=== PATIENT | female | born 1930 | race Caucasian/White ===

== ENCOUNTER 2016-12-26 09:53 | Emergency (ER) | payer OTHER ==
[2016-12-26 10:02] VITALS: BMI 18.3
--- NOTE | 2016-12-26 10:36 | PDOC ---
History of Present Illness <Teodora Bryan - Last Filed: 12/26/16 13:14> <Byron Carias - Last Filed: 12/27/16 09:34> - General Chief Complaint: Chest Pain Stated Complaint: CHEST PAIN (PCP SENT) Time Seen by Provider: 12/26/16 10:29 - History of Present Illness Initial Comments: 12/26/16 12:37 The patient is a 86 year old female, with a significant past medical history of hypertension, pacemaker, asthma, diverticulitis, and frequent UTI, who presents to the emergency department with intermittent, sharp pain to the left lateral breast, inferior to her left axilla since 5pm last night. She denies pain at this time, however, reports the pain lasts for about a minute and a half and resolve. She reports that as the night progressed, the intervals between each episode of pain became shorter and shorter. She reports her pain this morning lasted for a minute and resolved for only a minute before reoccurring which is much sooner than it had been happening last night. She denies radiation of pain. She reports her refurbish technician discontinued her metoprolol and started on carvedilol about 4 days ago, She reports seeing her refurbish technician 2 weeks ago. She denies palpitations or persistent dyspnea, however, admits to one episode about a week ago after walking up the stairs. She also reports feeling fuzzy and lightheaded. She denies hematochezia. Pt dnies any worsening on exertion. She denies shortness of breath, diaprhoesis, headache and dizziness. She denies fever, chills, nausea, vomit, diarrhea and constipation. She denies dysuria, frequency, urgency and hematuria. Allergies: NKDA Past surgical history: hysterectomy, appendectomy, PCP - Dr. Lopez Psychological Assistant - Dr. Roman Lux (Teodora Bryan) Past History <Teodora Bryan - Last Filed: 12/26/16 13:14> - Past Medical History Anemia: No Asthma: Yes Cancer: No Cardiac Disorders: No CVA: No COPD: No CHF: No Dementia: No Diabetes: No GI Disorders: Yes (GERD,diverticulitis) Disorders: Yes (UTI) HTN: Yes Hypercholesterolemia: Yes Liver Disease: No Seizures: No Thyroid Disease: No - Surgical History Abdominal Surgery: Yes Appendectomy: Yes Cardiac Surgery: Yes (PACEMAKER) Cholecystectomy: No Lung Surgery: No Neurologic Surgery: No Orthopedic Surgery: No - Psycho/Social/Smoking Cessation Hx Anxiety: No Suicidal Ideation: No Smoking Status: No Smoking History: Never smoked Have you smoked in the past 12 months: No Number of Cigarettes Smoked Daily: 0 Hx Alcohol Use: Yes (1 BEER DAILY) Drug/Substance Use Hx: No Substance Use Type: None Hx Substance Use Treatment: No <Byron Carias - Last Filed: 12/27/16 09:34> - Past Medical History Allergies/Adverse Reactions: Allergies Allergy/AdvReac Type Severity Reaction Status Date / Time house dust Allergy Verified 12/26/16 10:02 HAY FEVER Allergy Uncoded 12/26/16 10:02 NKDA Allergy Uncoded 12/26/16 10:02 Home Medications: Ambulatory Orders Simvastatin [Zocor] 30 mg PO DAILY 01/11/12 Amlodipine Besylate [Norvasc -] 10 mg PO DAILY 06/13/16 Aspirin [Ecotrin] 81 mg PO DAILY 06/13/16 Carvedilol [Coreg -] 12.5 mg PO BID 12/26/16 Quinapril HCl [Accupril] 40 mg PO DAILY 12/26/16 Cardiac Specific PMH - Complaint Specific PMHX Pacemaker: No <Byron Carias - Last Filed: 12/27/16 09:34> Review of Systems - Review of Systems Able to Perform ROS?: Yes <Teodora Bryan - Last Filed: 12/26/16 13:14> <Byron Carias - Last Filed: 12/27/16 09:34> - Review of Systems Comments:: 12/26/16 12:37 CONSTITUTIONAL: No reported: Fever, Chills, Diaphoresis, Generalized Weakness, Malaise, Loss of Appetite HEENT: No reported: Rhinorrhea, Nasal Congestion, Throat Pain, Throat Swelling, Difficulty Swallowing, Mouth Swelling, Ear Pain, Eye Pain, Visual Changes CARDIOVASCULAR: (+) Chest Pain, No reported: Syncope, Palpitations, Irregular Heart Rate, Lightheadedness, Peripheral Edema RESPIRATORY: No reported: Cough, Shortness of Breath, SOB with Exertion, Orthopnea, Wheezing , Stridor, Hemoptysis GASTROINTESTINAL: No reported: Abdominal pain, Abdominal Distension, Nausea, Vomiting, Diarrhea, Constipation, Melena, Hematochezia GENITOURINARY: No reported: Dysuria, Frequency, Urgency, Hesitancy, Flank Pain, Genital Pain MUSCULOSKELETAL: No reported: Myalgia, Arthralgia, Joint Swelling, Back pain, Neck Pain SKIN: No reported: Rash, Itching, Pallor HEMEATOLOGIC/IMMUNOLOGIC: No reported: Easy Bleeding, Easy Bruising, Lymphadenopathy, Frequent infections ENDOCRINE: No reported: Unexplained Weight Gain, Unexplained Weight Loss, Heat Intolerance , Cold Intolerance NEUROLOGIC: No reported: Headache, Focal Weakness, Paresthesias, Vertigo, Lightheadedness, Unsteady Gait, Seizure, Mental Status Changes, Incontinence PSYCHIATRIC: No reported: Anxiety, Depression (Teodora Bryan) *Physical Exam <Teodora Bryan - Last Filed: 12/26/16 13:14> <Byron Carias - Last Filed: 12/27/16 09:34> - Vital Signs Last Vital Signs Temp Pulse Resp BP Pulse Ox 98.1 F 61 18 143/71 98 12/26/16 13:37 12/26/16 16:39 12/26/16 16:39 12/26/16 16:39 12/26/16 16:39 - Physical Exam Comments: 12/26/16 12:37 GENERAL: The patient is awake, alert, and fully oriented, Nontoxic - in no acute distress. HEAD: Normocephalic, atraumatic. EYES: extraocular movements intact, sclera anicteric, conjunctiva clear. ENT: Normal voice, Moist mucous membranes. NECK: Normal range of motion, supple LUNGS: Breath sounds equal, clear to auscultation bilaterally. No wheezes, no rhonchi, no rales. HEART: Regular rate and rhythm, without murmur, rub or gallop. No reproducible chest tenderness., PM in L chest, non reproducible tenderness ABDOMEN: Soft, nontender, normoactive bowel sounds. No guarding, no rebound.No CVA tenderness EXTREMITIES: Normal range of motion, no edema. No clubbing or cyanosis. No cords, erythema, or tenderness. NEUROLOGICAL: No facial assymetry, Normal speech, PSYCH: Normal mood, normal affect. SKIN: Warm, Dry, normal turgor, (Teodora Bryan) Heart Score/ECG Review <Teodora Bryan - Last Filed: 12/26/16 13:14> <Byron Carias - Last Filed: 12/27/16 09:34> - ECG Impressions Comment:: 12/26/16 10:56 Twelve-lead EKG was performed and reviewed by me. Atrial paced rhythm Rate of [address] changes suggestive of acute ischemia (Byron Carias) ED Treatment Course - LABORATORY CBC & Chemistry Diagram: 12/26/16 10:55 12/26/16 10:55 <Teodora Bryan - Last Filed: 12/26/16 13:14> - LABORATORY CBC & Chemistry Diagram: 12/26/16 10:55 12/26/16 10:55 <ArethaByron - Last Filed: 12/27/16 09:34> - ADDITIONAL ORDERS Additional order review: 12/26/16 10:55 RBC 4.26 MCV 94.7 MCHC 33.5 RDW 13.1 MPV 7.5 Neutrophils % 62.8 Lymphocytes % 27.8 Monocytes % 7.2 Eosinophils % 1.7 Basophils % 0.5 - RADIOLOGY Radiology Studies Ordered: Category Date Time Status CHEST PA & LAT [RAD] Stat Radiology 12/26/16 10:38 Completed Radiograph Interpretation: 12/26/16 13:14 EXAM#: TYPE/EXAM: RESULT: [id number] RAD/CHEST PA LAT Reason for the study. Chest pain Chest 2 views compared with June 13, 2016 P The trachea is normal in size is not deviated. Left pacemaker with 2 intact leads. No evidence of cardiomegaly, widening of the superior mediastinum. Calcified aortic arch. No evidence of effacement of the diaphragms, blunting of the costophrenic angles. The pulmonary vasculature pattern is normal. No bulky mediastinal mass or hilar adenopathy is noted. Hyperaerated lungs, flattened diaphragms are noted, with increased anterior-posterior dimension of the chest , with increased retrosternal space. No evidence of pneumonia, atelectasis. No pleural effusion or pneumothorax is seen. Demineralized osseous structures. Intact visualized osseous structures. Impression: No evidence of active pulmonary disease. COPD. Reported By: Daniel Hand MD 12/26/16 3663 (Teodora Bryan) - Medications Given in the ED: ED Medications Discontinued Medications Generic Name Dose Route Start Last Admin Trade Name Harshalq PRN Reason Stop Dose Admin Aspirin 162 mg 12/26/16 10:38 12/26/16 11:09 Asa - PO 12/26/16 10:39 162 mg ONCE ONE Administration Medical Decision Making <Teodora Bryan - Last Filed: 12/26/16 13:14> <ArethaByron - Last Filed: 12/27/16 09:34> - Medical Decision Making 12/26/16 12:38 Dr. Lux was called at 11:45 and the patient's case was discussed. (Teodora Bryan) 12/26/16 10:51 86y F hx of hx of htn, pm secondary to syncope, presents with complaint of episodic L sided non radiating chest pain w/o associated sob/hemoptysis, n/v, diaphoresis, no exertional component, no worsening on movement of arms. On exam the pt has a normal exam. vitals unremarkable unlikely acs, but due to age and risk factors will send trop considered PE, however, [place] based on intermittent symptoms lasting for 1 min will discuss w/ dr. lux consider possible 2 set r/o A portion of this note was documented by scribe services under my direction. I have reviewed the details of the note, within reason, and agree with the documentation with the following case summary and management plan written by me 12/26/16 12:12 labs unremarkable trop negative case dw dr. lux will see pt in ED, will obtian 2nd trop at 4 hrs 12/26/16 16:18 trop neg x [address] Lepe consult pt asypmtomatic will d/c after Dr. Lepe consultation if he agrees 12/26/16 17:[address] lux who was bedisde evaluating the patient. agree w/ our management agreed pt can be dc will hvae pt fu with dr. lux as outptaient return precautions were discussed I discussed the physical exam findings, ancillary test results and final diagnoses with the patient. I answered all of the patient's questions. The patient was satisfied with the care received and felt comfortable with the discharge plan and treatment plan. The patient will call their primary care physician within 24 hours to arrange follow-up and will return to the Emergency Department with any new, persistent or worsening symptoms. (Byron Carias) *DC/Admit/Observation/Transfer <Teodora Bryan - Last Filed: 12/26/16 13:14> - Discharge Dispostion Admit: No <Byron Carias - Last Filed: 12/27/16 09:34> Diagnosis at time of Disposition: Chest pain Qualifiers: Chest pain type: unspecified Qualified Code(s): R07.9 - Chest pain, unspecified - Discharge Dispostion Disposition: HOME Condition at time of disposition: Improved - Referrals Referrals: Cass Lai MD [Primary Care Provider] - Roman Lux MD [Staff Physician] - - Patient Instructions Printed Discharge Instructions: DI for Atypical Chest Pain Additional Instructions: Return to the emergency department immediately with ANY new, persistent or worsening symptoms. You MUST call and follow up with your doctor tomorrow for further evaluation of your symptoms. Results were discussed with you. Please make sure your doctor reviews the results of your emergency evaluation. If you had any xrays during your visit, it was read preliminarily by myself, a Radiologist will review it and if there are any additional findings we will call you. - Attestations Scribe Attestion: 12/26/16 12:38 Documentation prepared by Teodora Bryan, acting as medical social consultant for Byron Carias MD (Teodora Bryan)
[2016-12-26] MEDS ORDERED: ASPIRIN 81 MG CHEWABLE TABLETS PO ONE (10:38)
[2016-12-26 11:01] LABS: BASOPHIL 0.5 % (0-2.0); EOSINOPHIL 1.7 % (0-4.5); MCH 31.7 pg (25.7-33.7); MCHC 33.5 g/dl (32.0-36.0); MEAN CELL VOLUME 94.7 fl (80-96); MEAN PLT VOLUME 7.5 fl (7.5-11.1); NEUTROPHILS 62.8 % (42.8-82.8); PLATELET COUNT 220 K/MM3 (134-434); RDW 13.1 % (11.6-15.6); WHITE BLOOD COUNT 6.3 K/mm3 (4.0-10.0)
[2016-12-26] MEDS ORDERED: ASPIRIN 81 MG CHEWABLE TABLETS ONE (11:07)
[2016-12-26 11:35] LABS: ALBUMIN 4.1 g/dl (3.4-5.0); ANION GAP 8 (8-16); CALCIUM 9.9 mg/dL (8.5-10.1); CO2 29 mmol/L (21-32); CREATININE 0.7 mg/dL (0.55-1.02); GLUCOSE,RANDOM 112 mg/dL (74-106); MAGNESIUM 2.6 mg/dL (1.8-2.4); SGOT/AST 19 U/L (15-37); SGPT/ALT 20 U/L (12-78)
[2016-12-26 11:39] LABS: ALK PHOS 48 U/L (45-117); BILIRUBIN,TOTAL 0.7 mg/dL (0.2-1.0); TOT PROT 7.5 g/dl (6.4-8.2); TROPONIN I < 0.02 ng/ml (0.00-0.05)
[2016-12-26 11:56] LABS: INR 0.96 (0.82-1.09); PROTHROMBIN TIME (PATIENT) 10.5 SEC (9.98-11.88)
[2016-12-26 13:38] VITALS: TEMP 98.1
[2016-12-26 15:16] LABS: TROPONIN I < 0.02 ng/ml (0.00-0.05)
[2016-12-26 16:39] VITALS: BP 143/71; PULSE 61
--- NOTE | 2016-12-26 16:45 | CON.CARD ---
Consult Consult Specialty:: Cardiology Referred by:: Byron Carias MD Reason for Consultation:: Chest pain - History of Present Illness Chief Complaint: Chest pain History of Present Illness: The patient is a 86 year old female, with a significant past medical history of syncope referable to sinus node dysfunction s/p dual chamber pacer, hypertension , hyperlipidemia, asthma, diverticulitis, and frequent UTI, GERD who presented to the emergency department with intermittent, sharp pain to the left lateral breast, inferior to her left axilla since 5pm last night. She denies pain at this time, however, reports the pain lasts for about a minute and a half and spontaneously resolved. She reports that as the night progressed, the intervals between each episode of pain became shorter and shorter. She reports her pain this morning lasted for a minute and resolved for only a minute before reoccurring which is much sooner than it had been happening last night. She denies radiation of pain. She reports her retail leasing agent discontinued her metoprolol and started on carvedilol about 4 days ago for improved hypertension control. She denies palpitations or persistent dyspnea, however, admits to one episode about a week ago after walking up the stairs. She also reports feeling fuzzy and lightheaded. She denies hematochezia. Pt dnies any worsening on exertion. She denies shortness of breath, diaphoresis, headache and dizziness. She denies fever, chills, nausea, vomit, diarrhea and constipation. She denies dysuria, frequency, urgency and hematuria. Allergies: NKDA Past surgical history: hysterectomy, appendectomy, PCP - Dr. Lopez Commercial Property Manager - Dr. Roman Lux ([facility]) - History Source History Provided By: Patient Limitations to Obtaining History: No Limitations - Past Medical History Cardio/Vascular: Yes: HTN, Hyperlipdemia - Alcohol/Substance Use Hx Alcohol Use: Yes (1 BEER DAILY) - Smoking History Smoking history: Never smoked Have you smoked in the past 12 months: No Aproximately how many cigarettes per day: 0 Home Medications - Allergies Allergies/Adverse Reactions: Allergies Allergy/AdvReac Type Severity Reaction Status Date / Time house dust Allergy Verified 12/26/16 10:02 HAY FEVER Allergy Uncoded 12/26/16 10:02 NKDA Allergy Uncoded 12/26/16 10:02 - Home Medications Home Medications: Ambulatory Orders Simvastatin [Zocor] 30 mg PO DAILY 01/11/12 Amlodipine Besylate [Norvasc -] 10 mg PO DAILY 06/13/16 Aspirin [Ecotrin] 81 mg PO DAILY 06/13/16 Carvedilol [Coreg -] 12.5 mg PO BID 12/26/16 Quinapril HCl [Accupril] 40 mg PO DAILY 12/26/16 Review of Systems - Review of Systems Cardiovascular: reports: Chest Pain Vital Signs: Vital Signs Temperature 98.1 F 12/26/16 13:37 Pulse Rate 61 12/26/16 16:39 Respiratory Rate 18 12/26/16 16:39 Blood Pressure 143/71 12/26/16 16:39 O2 Sat by Pulse Oximetry (%) 98 12/26/16 16:39 Constitutional: Yes: No Distress, Calm, Thin Neck: Yes: Supple Respiratory: Yes: Regular, CTA Bilaterally Gastrointestinal: Yes: Normal Bowel Sounds, Soft Cardiovascular: Yes: Regular Rate and Rhythm JVD: No Carotid Bruit: No Heart Sounds: Yes: S1, S2 Edema: No - Other Data Labs, Other Data: CBC, BMP 12/26/16 10:55 12/26/16 10:55 INR, PTT INR 0.96 (0.82-1.09) 12/26/16 10:55 Troponin, BNP 12/26/16 12/26/16 10:55 14:45 Troponin I < 0.02 < 0.02 Troponin, BNP 12/26/16 12/26/16 10:55 14:45 Troponin I < 0.02 < 0.02 A-Paced @ 60 Imaging - Results Chest X-ray: Report Reviewed (NAD, COPD) Problem List - Problems (1) Atypical chest pain Code(s): R07.89 - OTHER CHEST PAIN (2) Sinus node dysfunction Code(s): I49.5 - SICK SINUS SYNDROME (3) Cardiac pacemaker in situ Code(s): Z95.0 - PRESENCE OF CARDIAC PACEMAKER (4) Hypertensive cardiovascular disease Code(s): I11.9 - HYPERTENSIVE HEART DISEASE WITHOUT HEART FAILURE Qualifiers: Heart failure presence: without heart failure Qualified Code(s): I11.9 - Hypertensive heart disease without heart failure (5) Hyperlipidemia Code(s): E78.5 - HYPERLIPIDEMIA, UNSPECIFIED Qualifiers: Hyperlipidemia type: pure hypercholesterolemia Qualified Code(s): E78.00 - Pure hypercholesterolemia, unspecified; E78.0 - Pure hypercholesterolemia Assessment/Plan 11/21/2014 P-Myoview: Small sized mild inferobasal ischemia, LVEF 88% 07/16/2014 Echo: Normal LV size and fxn, mild-mod MR, mild TR, RVSP 36 mmHg 1. Atypical chest pain syndrome 2. Hyperlipidemia 3. HTN/HCVD 4. 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 GERD 6. Moderate nonobstructive carotid disease P:1. Ruled out for [place] 2. Continue CV meds 3. May d/c patient with f/u in office 4. Thank you for consultative opportunity
--- NOTE | 2016-12-27 13:13 | EKG ---
Test Reason : Blood Pressure : / mmHG Vent. Rate : 060 BPM Atrial Rate : 060 BPM P-R Int : 198 ms QRS Dur : 090 ms QT Int : 412 ms P-R-T Axes : -27 032 054 degrees QTc Int : 412 ms Atrial-paced rhythm ABNORMAL ECG NO PREVIOUS ECGS AVAILABLE Confirmed by GISELE DAN MD ([id number]) on 12/27/2016 1:12:50 PM Referred By: Confirmed By:GISELE DAN MD
== END 2016-12-26 17:17 | disposition home or self-care (01) ==
LOC: JER 09:53
DX: R07.9 Chest pain, unspecified (principal); I10 Essential (primary) hypertension; J45.909 Unspecified asthma, uncomplicated; Z87.440 Personal history of urinary (tract) infections; Z95.0 Presence of cardiac pacemaker
CPT/HCPCS: 36415; 71020-TC; 80053; 82550; 83735; 84484; 85025; 85610; 93005; 93010; 99285-25

== ENCOUNTER 2017-05-30 13:53 | Inpatient (IN) | payer OTHER ==
--- NOTE | 2017-05-30 15:11 | PDOC ---
History of Present Illness - General History Source: Patient, Family Exam Limitations: No Limitations - History of Present Illness Initial Comments: 05/30/17 15:56 87 y.o female, with PMH of HTN, pacemaker, asthma, diverticulitis, frequent UTIs , who presents to the emergency room today complaining of intermittent and crampy lower abdominal pain, nausea, and vomiting that started around 12:30pm today. The patient explains that she was on a phone conference at 12:30 when the pain started. She reports frequent bowel movements, about 5 today since the pain has started. The bowel movements are soft, light brown, and formed. Denies melena, dark tarry stool. The patient states that she is usually constipated and has not had a formed bowel movement since 5 days ago. The patient also experienced one episode of nonbloody, but bilious vomiting. Denies fever, chills. Denies chest pain, SOB. Denies leg swelling. Denies sick contact. Allergies: NKDA Surgical hx: hysterectomy, appendectomy PCP: Dr. Lopez Centrifugal Chiller Technician: Dr. Roman Lux <Clarissa Brito - Last Filed: 05/30/17 17:18> <Dionisio Pedraza - Last Filed: 05/30/17 17:44> - General Chief Complaint: Pain Stated Complaint: lower abdominal paina nd weakness Time Seen by Provider: 05/30/17 14:04 Past History <Clarissa Brito - Last Filed: 05/30/17 17:18> - Past Medical History Anemia: No Asthma: Yes Cancer: No Cardiac Disorders: No CVA: No COPD: No CHF: No Dementia: No Diabetes: No GI Disorders: Yes (GERD,diverticulitis) Disorders: Yes (UTI) HTN: Yes Hypercholesterolemia: Yes Liver Disease: No Seizures: No Thyroid Disease: No - Surgical History Abdominal Surgery: Yes Appendectomy: Yes Cardiac Surgery: Yes (PACEMAKER) Cholecystectomy: No Lung Surgery: No Neurologic Surgery: No Orthopedic Surgery: No - Suicide/Smoking/Psychosocial Hx Smoking Status: No Smoking History: Never smoked Have you smoked in the past 12 months: No Number of Cigarettes Smoked Daily: 0 Hx Alcohol Use: No Drug/Substance Use Hx: No Substance Use Type: None Hx Substance Use Treatment: No <Dionisio Pedraza S - Last Filed: 05/30/17 17:44> - Past Medical History Allergies/Adverse Reactions: Allergies Allergy/AdvReac Type Severity Reaction Status Date / Time house dust Allergy Verified 05/30/17 13:55 HAY FEVER Allergy Uncoded 12/26/16 10:02 NKDA Allergy Uncoded 12/26/16 10:02 Home Medications: Ambulatory Orders Simvastatin [Zocor] 30 mg PO DAILY 01/11/12 Amlodipine Besylate [Norvasc -] 10 mg PO DAILY 06/13/16 Aspirin [Ecotrin] 81 mg PO DAILY 06/13/16 Carvedilol [Coreg -] 25 mg PO BID 12/26/16 Quinapril HCl [Accupril] 40 mg PO DAILY 12/26/16 Omeprazole 20 mg PO DAILY 05/30/17 Review of Systems - Review of Systems Able to Perform ROS?: Yes Comments:: 05/30/17 15:57 CONSTITUTIONAL: Absent: fever, no chills, no fatigue EYES: Absent: visual changes ENT: Absent: ear pain, no sore throat CARDIOVASCULAR: Absent: chest pain, no palpitations RESPIRATORY: Absent: cough, no SOB GI: +Lower abdominal pain, nausea, vomiting, frequent bowel movements Absent: no constipation, no diarrhea GENITOURINARY: Absent: dysuria, no frequency, no hematuria MUSCULOSKELETAL: Absent: back pain, no arthralgia, no myalgia SKIN: Absent: rash <Clarissa Brito - Last Filed: 05/30/17 17:18> *Physical Exam - Vital Signs Last Vital Signs Temp Pulse Resp BP Pulse Ox 97.6 F 61 16 105/57 98 05/30/17 13:55 05/30/17 13:55 05/30/17 13:55 05/30/17 13:55 05/30/17 13:55 - Physical Exam Comments: 05/30/17 15:58 GENERAL: Well-appearing, well-nourished. No apparent distress. HEENT: Normocephalic, atraumatic. PERRL, EOM intact. CARDIOVASCULAR: Normal S1, S2. Regular rate and rhythm. PULMONARY: Clear to auscultation bilaterally. ABDOMEN: +RLQ tenderness to palpation. Soft, non-distended, non-tender. EXTREMITIES: Normal ROM in all four extremities. No gross deformities. SKIN: Warm, dry. No rash NEUROLOGICAL: No focal neurological deficits. <Clarissa Brito - Last Filed: 05/30/17 17:18> - Vital Signs Last Vital Signs Temp Pulse Resp BP Pulse Ox 97.6 F 61 16 105/57 98 05/30/17 13:55 05/30/17 13:55 05/30/17 13:55 05/30/17 13:55 05/30/17 13:55 <Dionisio Pedraza - Last Filed: 05/30/17 17:44> Heart Score/ECG Review #1 05/30/17 16:23 Atrial paced rhythm with prolonged AV conduction with a rate of 60bpm <Clarissa Brito - Last Filed: 05/30/17 17:18> ED Treatment Course - LABORATORY CBC & Chemistry Diagram: 05/30/17 15:00 05/30/17 15:00 - Medications Given in the ED: ED Medications Discontinued Medications Generic Name Dose Route Start Last Admin Trade Name Gallo PRN Reason Stop Dose Admin Ondansetron HCl 4 mg 05/30/17 15:29 05/30/17 15:36 Zofran Injection IVPB 05/30/17 15:30 4 mg ONCE ONE Administration <Clarissa Brito - Last Filed: 05/30/17 17:18> - LABORATORY CBC & Chemistry Diagram: 05/30/17 15:00 05/30/17 15:00 <Dionisio Pedraza - Last Filed: 05/30/17 17:44> Medical Decision Making - Medical Decision Making 05/30/17 15:58 - Administered IV fluids - the patient continues to complain of intermittent, crampy abd pain even after multiple bowel movements. 05/30/17 17:09 After Tylenol IV she reports much improvement in pain, now 3/10 in severity -will order CT abdomen with IV contrast 05/30/17 17:18 <Clarissa Brito - Last Filed: 05/30/17 17:18> *DC/Admit/Observation/Transfer - Attestations Scribe Attestion: 05/30/17 15:58 Documentation prepared by HEBERT Cortes, acting as medical examiner for Dionisio Pedraza MD. <Clarissa Brito - Last Filed: 05/30/17 17:18> - Discharge Dispostion Admit: Yes <Dionisio Pedraza - Last Filed: 05/30/17 17:44> Diagnosis at time of Disposition: Abdominal pain Qualifiers: Abdominal location: generalized Qualified Code(s): R10.84 - Generalized abdominal pain - Discharge Dispostion Condition at time of disposition: Fair - Referrals Referrals: Haroon Alonzo MD [Primary Care Provider] -
[2017-05-30] MEDS ORDERED: SODIUM CHLORIDE 1,000 ML IV ONE (15:18)
[2017-05-30] MEDS ORDERED: ONDANSETRON 4 MG/2 ML VIAL IVPB ONE (15:29)
[2017-05-30] MEDS ORDERED: ONDANSETRON 4 MG/2 ML VIAL ONE (15:30)
[2017-05-30 15:46] LABS: BASOPHIL 0.4 % (0-2.0); EOSINOPHIL 2.7 % (0-4.5); MCH 32.5 pg (25.7-33.7); MEAN CELL VOLUME 95.4 fl (80-96); MEAN PLT VOLUME 8.6 fl (7.5-11.1); NEUTROPHILS 66.3 % (42.8-82.8); PLATELET COUNT 239 K/MM3 (134-434); RDW 13.1 % (11.6-15.6); WHITE BLOOD COUNT 5.4 K/mm3 (4.0-10.8)
[2017-05-30] MEDS ORDERED: morphine CARPU-JECT 2 MG/1 ML DISP.SYRIN IVPUSH ONE (16:25)
[2017-05-30] MEDS ORDERED: morphine CARPU-JECT 2 MG/1 ML DISP.SYRIN ONE (16:26)
[2017-05-30] MEDS ORDERED: ACETAMINOPHEN INJECTION 100 ML IVPB ONE (16:33)
[2017-05-30] MEDS ORDERED: ACETAMINOPHEN 1000 MG/100 ML VIAL (NON FORMULARY) IVPB ONE (16:33)
[2017-05-30 17:02] LABS: ALBUMIN 3.8 g/dl (3.5-5.0); ALK PHOS 47 U/L (32-92); ANION GAP 5 (8-16); BILIRUBIN,TOTAL 0.9 mg/dl (0.2-1.0); CALCIUM 9.6 mg/dl (8.4-10.2); CO2 25 mmol/L (22-28); CREATININE 0.8 mg/dl (0.6-1.3); GLUCOSE,RANDOM 115 mg/dl (74-106); SGOT/AST 28 U/L (10-42); SGPT/ALT 19 U/L (10-40); TOT PROT 6.3 g/dl (6.4-8.3)
[2017-05-30] MEDS ORDERED: SODIUM CHLORIDE 1,000 ML IV SCH (17:30)
--- NOTE | 2017-05-30 19:32 | HP ---
CHIEF COMPLAINT: Abdominal Cramping, Diarrhea, Nausea PCP: Dr. Alonzo HISTORY OF PRESENT ILLNESS: This is a 87 y.o woman with a past medical history of HTN, HLD, GERD, Diverticulitis. Who presents to the ED with abdominal cramping, LLQ pain, nausea , loose BMs, bilious vomiting x2 today. Patient's son reports that while the patient was in the bathroom using the toilet, she became pale and dizzy, and for a few seconds did not respond to her name. After calling 911, he reports that when the ambulance arrived she began to respond to baseline. Patient denies , fever, cough, SOB, CP, constipation, melena, hematochezia, dysuria. Last colonoscopy 2011- Polyps ER course was notable for: (1) CTAP report- extensive Colitis (2) Na 132 (3) Recent Travel: None PAST MEDICAL HISTORY: See HPI PAST SURGICAL HISTORY: Social History: Smoking: Never Alcohol: None Drugs: None Lives with son Family History: Non-Contributory Allergies house dust Allergy (Verified 05/30/17 13:55) HAY FEVER Allergy (Uncoded 12/26/16 10:02) NKDA Allergy (Uncoded 12/26/16 10:02) HOME MEDICATIONS: Home Medications Medication Instructions Recorded Simvastatin [Zocor] 30 mg PO DAILY 01/11/12 Amlodipine Besylate [Norvasc -] 10 mg PO DAILY 06/13/16 Aspirin [Ecotrin] 81 mg PO DAILY 06/13/16 Carvedilol [Coreg -] 25 mg PO BID 12/26/16 Quinapril HCl [Accupril] 40 mg PO DAILY 12/26/16 Omeprazole 20 mg PO DAILY 05/30/17 REVIEW OF SYSTEMS CONSTITUTIONAL: chills Absent: fever, diaphoresis, generalized weakness, malaise, loss of appetite, weight change HEENT: Absent: rhinorrhea, nasal congestion, throat pain, throat swelling, difficulty swallowing, mouth swelling, ear pain, eye pain, visual changes CARDIOVASCULAR: Absent: chest pain, syncope, palpitations, irregular heart rate, lightheadedness , peripheral edema RESPIRATORY: Absent: cough, shortness of breath, dyspnea with exertion, orthopnea, wheezing, stridor, hemoptysis GASTROINTESTINAL: abdominal cramping, nausea, vomiting, diarrhea Absent: abdominal distension, constipation, melena, hematochezia GENITOURINARY: Absent: dysuria, frequency, urgency, hesitancy, hematuria, flank pain, genital pain MUSCULOSKELETAL: Absent: myalgia, arthralgia, joint swelling, back pain, neck pain SKIN: Absent: rash, itching, pallor HEMATOLOGIC/IMMUNOLOGIC: Absent: easy bleeding, easy bruising, lymphadenopathy, frequent infections ENDOCRINE: Absent: unexplained weight gain, unexplained weight loss, heat intolerance, cold intolerance NEUROLOGIC: dizziness Absent: headache, focal weakness or paresthesias, unsteady gait, seizure, mental status changes, bladder or bowel incontinence PSYCHIATRIC: Absent: anxiety, depression, suicidal or homicidal ideation, hallucinations. PHYSICAL EXAMINATION Vital Signs - 24 hr 05/30/17 05/30/17 05/30/17 13:55 16:37 17:32 Temperature 97.6 F Pulse Rate 61 Pulse Rate [ 60 60 Apical] Respiratory 16 18 16 Rate Blood Pressure 105/57 Blood Pressure 94/58 101/41 [Arm] O2 Sat by Pulse 98 100 99 Oximetry (%) GENERAL: Awake, alert, and fully oriented, in no acute distress. HEAD: Normal with no signs of trauma. EYES: Pupils equal, round and reactive to light, extraocular movements intact, sclera anicteric, conjunctiva clear. No lid lag. EARS, NOSE, THROAT: Dry mucous membranes. Ears normal, nares patent, oropharynx clear without exudates. NECK: Normal range of motion, supple without lymphadenopathy, JVD, or masses. LUNGS: Breath sounds equal, clear to auscultation bilaterally. No wheezes, and no crackles. No accessory muscle use. HEART: Irregular rate and rhythm, Grade 2/6 murmur. Normal S1 and S2. No rub or gallop. ABDOMEN: LLQ tenderness, hyperactive bowel sounds. Soft, not distended, no guarding, no rebound, no masses. No hepatomegaly or splenomegaly. MUSCULOSKELETAL: Normal range of motion at all joints. No bony deformities or tenderness. No CVA tenderness. UPPER EXTREMITIES: 2+ pulses, warm, well-perfused. No cyanosis. No clubbing. No peripheral edema. LOWER EXTREMITIES: 2+ pulses, warm, well-perfused. No calf tenderness. No peripheral edema. NEUROLOGICAL: Cranial nerves II-XII intact. Normal speech. Gait not observed. PSYCHIATRIC: Cooperative. Good eye contact. Appropriate mood and affect. SKIN: Warm, dry, normal turgor, no rashes or lesions noted, normal capillary refill. Laboratory Results - last 24 hr 05/30/17 05/30/17 05/30/17 15:00 15:00 15:00 WBC 5.4 RBC 3.98 Hgb 12.9 Hct 38.0 MCV 95.4 MCH 32.5 MCHC 34.0 RDW 13.1 Plt Count 239 MPV 8.6 Neutrophils % 66.3 Lymphocytes % 25.3 Monocytes % 5.3 Eosinophils % 2.7 Basophils % 0.4 Sodium 132 L Potassium 4.3 Chloride 102 Carbon Dioxide 25 Anion Gap 5 L BUN 20 H D Creatinine 0.8 Creat Clearance w eGFR > 60 Random Glucose 115 H Calcium 9.6 Total Bilirubin 0.9 D AST 28 D ALT 19 Alkaline Phosphatase 47 D Troponin I < 0.03 L Total Protein 6.3 L Albumin 3.8 ASSESSMENT/PLAN: This is a 87 y/o woman with a PMHx of: HTN, HLD, GERD, Diverticulitis. Placed in Observation for Colitis. FEN - D51/2NS@42cc/hr - Replete lytes prn - NPO Code Status: Full Code Dispo: Observation Problem List - Problem (1) Colitis Assessment/Plan: - CTAP- showed extensive colitis - Will start Levaquin/Flagyl - No leukocytosis, no neutrophilia, remains afebrile - Appreciate GI Consult - Continue IVF - NPO - Repeat CBC, BMP in am - Stool Cultures, C- Diff, O&P - Morphine Sulfate prn - Monitor vitals Code(s): K52.9 - NONINFECTIVE GASTROENTERITIS AND COLITIS, UNSPECIFIED (2) Abdominal pain Assessment/Plan: - See Above Code(s): R10.9 - UNSPECIFIED ABDOMINAL PAIN Qualifiers: Abdominal location: generalized Qualified Code(s): R10.84 - Generalized abdominal pain (3) Vaso vagal episode Assessment/Plan: - Likely due to defecating vs arrhythmia - EKG- Atrial paced rhythm with prolonged AV conduction with a rate of 60bpm - Will continue to monitor and treat accordingly - Fall Precautions - Monitor vitals - Continue IVFs - Replete lytes Code(s): R55 - SYNCOPE AND COLLAPSE (4) Hypertensive cardiovascular disease Assessment/Plan: - Controlled - Will hold BP meds for now secondary to hypotension - Monitor renal function Code(s): I11.9 - HYPERTENSIVE HEART DISEASE WITHOUT HEART FAILURE Qualifiers: (5) Hyperlipidemia Assessment/Plan: - Continue Lipitor Code(s): E78.5 - HYPERLIPIDEMIA, UNSPECIFIED Qualifiers: (6) Cardiac pacemaker in situ Assessment/Plan: - EKG reviewed Code(s): Z95.0 - PRESENCE OF CARDIAC PACEMAKER (7) DVT prophylaxis Assessment/Plan: - OOB - SCDs Code(s): [id number] - Visit type - Emergency Visit Emergency Visit: Yes ED Registration Date: 05/30/17 Care time: The patient presented to the Emergency Department on the above date and was hospitalized for further evaluation of their emergent condition. - New Patient This patient is new to me today: Yes Date on this admission: 05/30/17 - Critical Care Critical Care patient: No
[2017-05-30] MEDS ORDERED: METRONIDAZOLE 500 MG PREMIXED 500 MG/100 ML MG IVPB ONE (21:02)
[2017-05-30] MEDS ORDERED: LEVOFLOXACIN 500 MG IVPB 500 MG/100 ML BAG IVPB ONE (21:03)
[2017-05-30 22:49] VITALS: BMI 19.1
[2017-05-31] MEDS ORDERED: morphine SULFATE 4 MG/ML VIAL IVPUSH PRN (02:35)
[2017-05-31] MEDS ORDERED: ONDANSETRON 4 MG/2 ML VIAL IVPUSH PRN (02:36)
[2017-05-31 08:39] LABS: ALBUMIN 2.8 g/dl (3.5-5.0); ALK PHOS 33 U/L (32-92); ANION GAP 5 (8-16); BILIRUBIN,TOTAL 0.8 mg/dl (0.2-1.0); CALCIUM 8.2 mg/dl (8.4-10.2); CO2 23 mmol/L (22-28); CREATININE 0.8 mg/dl (0.6-1.3); GLUCOSE,RANDOM 103 mg/dl (74-106); SGOT/AST 20 U/L (10-42); SGPT/ALT 17 U/L (10-40); TOT PROT 5.1 g/dl (6.4-8.3)
[2017-05-31 09:02] LABS: MCH 32.3 pg (25.7-33.7); MCHC 33.7 g/dl (32.0-36.0); MEAN CELL VOLUME 95.9 fl (80-96); MEAN PLT VOLUME 8.7 fl (7.5-11.1); PLATELET COUNT 190 K/MM3 (134-434); RDW 13.3 % (11.6-15.6); WHITE BLOOD COUNT 9.1 K/mm3 (4.0-10.8)
--- NOTE | 2017-05-31 09:28 | PN ---
Physical Exam: SUBJECTIVE: Patient seen and examined, patient reports intermittent abdominal cramping denies any tactile fevers. OBJECTIVE: patient is a 87 y.o woman with a past medical history of HTN, HLD, GERD, and Diverticulitis. Patient was admitted from the emergency department to observation for colitis. Vital Signs Period Temp Pulse Resp BP Sys/[place] Pulse Ox Last 24 Hr 97.6 F-100.0 F 60-69 12-19 94-115/38-58 96-100 GENERAL: The patient is awake, alert, and fully oriented, in no acute distress. HEAD: Normal with no signs of trauma. EYES: PERRL, extraocular movements intact, sclera anicteric, conjunctiva clear. No ptosis. ENT: Ears normal, nares patent, oropharynx clear without exudates, moist mucous membranes. NECK: Trachea midline, full range of motion, supple. LUNGS: Breath sounds equal, clear to auscultation bilaterally, no wheezes, no crackles, no accessory muscle use. HEART: Regular rate and rhythm, S1, S2 without murmur, rub or gallop. ABDOMEN: Soft, diffuse abdominal tenderness, nondistended, normoactive bowel sounds, no guarding, no rebound, no hepatosplenomegaly, no masses. EXTREMITIES: 2+ pulses, warm, well-perfused, no edema. NEUROLOGICAL: Cranial nerves II through XII grossly intact. Normal speech, gait not observed. PSYCH: Normal mood, normal affect. SKIN: Warm, dry, normal turgor, no rashes or lesions noted Laboratory Results - last 24 hr 05/30/17 05/30/17 05/30/17 15:00 15:00 15:00 WBC 5.4 RBC 3.98 Hgb 12.9 Hct 38.0 MCV 95.4 MCH 32.5 MCHC 34.0 RDW 13.1 Plt Count 239 MPV 8.6 Neutrophils % 66.3 Lymphocytes % 25.3 Monocytes % 5.3 Eosinophils % 2.7 Basophils % 0.4 Sodium 132 L Potassium 4.3 Chloride 102 Carbon Dioxide 25 Anion Gap 5 L BUN 20 H D Creatinine 0.8 Creat Clearance w eGFR > 60 Random Glucose 115 H Calcium 9.6 Total Bilirubin 0.9 D AST 28 D ALT 19 Alkaline Phosphatase 47 D Troponin I < 0.03 L Total Protein 6.3 L Albumin 3.8 05/31/17 05/31/17 07:30 07:30 WBC 9.1 D RBC 3.30 L Hgb 10.6 L D Hct 31.6 L D MCV 95.9 MCH 32.3 MCHC 33.7 RDW 13.3 Plt Count 190 D MPV 8.7 Neutrophils % Lymphocytes % Monocytes % Eosinophils % Basophils % Sodium 137 Potassium 3.9 Chloride 109 H Carbon Dioxide 23 Anion Gap 5 L BUN 23 H Creatinine 0.8 Creat Clearance w eGFR > 60 Random Glucose 103 Calcium 8.2 L Total Bilirubin 0.8 AST 20 D ALT 17 Alkaline Phosphatase 33 D Troponin I Total Protein 5.1 L Albumin 2.8 L D Active Medications Generic Name Dose Route Start Last Admin Trade Name Freq PRN Reason Stop Dose Admin Sodium Chloride 1,000 mls @ 50 mls/hr 05/30/17 17:30 05/30/17 18:00 Normal Saline - IV 05/31/17 17:30 50 mls/hr ASDIR NERI Administration Morphine Sulfate 2 mg 05/31/17 02:35 05/31/17 02:53 Morphine Sulfate IVPUSH 2 mg Q6H PRN Administration PAIN Ondansetron HCl 4 mg 05/31/17 02:36 Zofran Injection IVPUSH Q6H PRN NAUSEA AND/OR VOMITING IMAGING ct of abd/pelvis: extensive colitis of the left colon ekg: atrial paced with prolonged conduction ASSESSMENT/PLAN: 1) GI colitis - no leukocytosis, low grade temp noted, continue levaquin and flagyl - pending stool cultures - appreciate GI input 2) cardiovascular sinus node dysfunction - continuous cardiac monitoring, troponin x 1 wnl, pending 2nd and third - cardiology notes obtained from Dr Lux's office, echo 07/16/14, lv wnl, mild tr , moderate mr persantine stress 07/01 lvef 88%, small mild inferobasal ischemia. - appreciate cardiology input, Dr Lux, patient's private soda jerker. hypertensin - continue acupril, coreg and norvasc blood pressure at goal hyperlipidemia - continue lipitor, lfts wnl syncopal episode - pending echo and carotid dopplers - secondary to dehydration, pt is orthostatic as noted upon review of orthostatic vital signs, pt does reports several episodes of vomiting/diarherra for the past 48 hours, increase ivf to d51/2ns with 20meg KCI 75ml/hr x 1 bag. f/e/n - clear liquid diet, advance as tolerated - replete lytes prn ppx - oob - heparin - scd/vitaliy - pepcid dispo: requires telemetry observation. Visit type - Emergency Visit Emergency Visit: Yes ED Registration Date: 05/31/17 Care time: The patient presented to the Emergency Department on the above date and was hospitalized for further evaluation of their emergent condition. - New Patient This patient is new to me today: No - Critical Care Critical Care patient: No - Discharge Referral Referred to [facility] No
[2017-05-31] MEDS ORDERED: PATIENT'S OWN MEDICATION (NON-FORMULARY) (Omeprazole 20 MG) PO SCH (10:00)
[2017-05-31] MEDS ORDERED: SIMVASTATIN PO SCH (10:00)
[2017-05-31] MEDS ORDERED: QUINAPRIL HCL 40 MG TABLET (FP) PO SCH (10:00)
[2017-05-31] MEDS ORDERED: CARVEDILOL 12.5 MG TABLET (FP) PO SCH (10:00)
[2017-05-31] MEDS: PANTOPRAZOLE 20 MG TABLET (FP) PO SCH (10:59)
[2017-05-31] MEDS: CARVEDILOL 25 MG TABLET (FP) PO SCH ×2 (11:00→21:24)
[2017-05-31] MEDS: amLODIPine BESYLATE 10 MG TABLET (FP) PO SCH (11:00)
[2017-05-31] MEDS: QUINAPRIL HCL 20 MG TABLET (FP) PO SCH (11:00)
[2017-05-31] MEDS: ASPIRIN COATED 81 MG TABLET.EC PO SCH (11:00)
--- NOTE | 2017-05-31 11:38 | CON.CARD ---
Consult Consult Specialty:: Cardiology Referred by:: Hospitalist Medicine Reason for Consultation:: Syncope - History of Present Illness Chief Complaint: Syncope History of Present Illness: The patient is a 87 year old female, with a significant past medical history of syncope referable to sinus node dysfunction s/p dual chamber pacer, hypertension , hyperlipidemia, asthma, diverticulitis,frequent UTI, GERD who presented to the emergency department with abdominal cramping, LLQ pain, fevers, nausea, loose BMs, bilious vomiting x2 today. Patient's son reports that while the patient was in the bathroom using the toilet, she became pale and dizzy, and for a few seconds did not respond to her name. After calling 911, he reports that when the ambulance arrived she began to respond to baseline. Patient denies , fever, cough, SOB, CP, constipation, melena, hematochezia, dysuria, orthopnea , PND, LE edema. CTAP report- extensive Colitis, Last colonoscopy 2011- Polyps Allergies: NKDA Past surgical history: hysterectomy, appendectomy, PCP - Dr. 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 Roman Lux ([facility]) - History Source History Provided By: Patient Limitations to Obtaining History: No Limitations - Past Medical History Cardio/Vascular: Yes: HTN, Hyperlipdemia ...: No - Past Surgical History Past Surgical History: Yes: Permanent Pacemaker - Alcohol/Substance Use Hx Alcohol Use: No - Smoking History Smoking history: Never smoked Have you smoked in the past 12 months: No Aproximately how many cigarettes per day: 0 Home Medications - Allergies Allergies/Adverse Reactions: Allergies Allergy/AdvReac Type Severity Reaction Status Date / Time house dust Allergy Verified 05/30/17 13:55 HAY FEVER Allergy Uncoded 12/26/16 10:02 NKDA Allergy Uncoded 12/26/16 10:02 - Home Medications Home Medications: Ambulatory Orders Simvastatin [Zocor] 30 mg PO DAILY 01/11/12 Amlodipine Besylate [Norvasc -] 10 mg PO DAILY 06/13/16 Aspirin [Ecotrin] 81 mg PO DAILY 06/13/16 Carvedilol [Coreg -] 25 mg PO BID 12/26/16 Quinapril HCl [Accupril] 40 mg PO DAILY 12/26/16 Omeprazole 20 mg PO DAILY 05/30/17 Review of Systems - Review of Systems Gastrointestinal: reports: Abdominal Pain, Diarrhea, Nausea, Vomiting Vital Signs: Vital Signs Temperature 100.0 F H 05/31/17 05:00 Pulse Rate 59 L 05/31/17 11:06 Respiratory Rate 18 05/31/17 05:00 Blood Pressure 117/64 05/31/17 11:06 O2 Sat by Pulse Oximetry (%) 99 05/30/17 21:59 Constitutional: Yes: No Distress, Calm, Thin Neck: Yes: Supple Respiratory: Yes: Regular, CTA Bilaterally Gastrointestinal: Yes: Soft, Hypoactive Bowel Sounds, Tenderness Cardiovascular: Yes: Regular Rate and Rhythm JVD: No Carotid Bruit: No Heart Sounds: Yes: S1, S2 Murmur: Yes: Systolic Murmur, Grade 1 Edema: No - Other Data Labs, Other Data: CBC, BMP 05/31/17 07:30 05/31/17 07:30 Troponin, BNP 05/30/17 15:00 Troponin I < 0.03 L Troponin, BNP 05/30/17 15:00 Troponin I < 0.03 L A-paced Ejection Fraction %: LVEF > or = 40 % Imaging - Results Cat Scan: Report Reviewed (Extensive left-sided colitis w/o obstruction or abscess) Problem List - Problems (1) Abdominal pain Code(s): R10.9 - UNSPECIFIED ABDOMINAL PAIN Qualifiers: Abdominal location: left lower quadrant Qualified Code(s): R10.32 - Left lower quadrant pain (2) Colitis Code(s): K52.9 - NONINFECTIVE GASTROENTERITIS AND COLITIS, UNSPECIFIED (3) Vaso vagal episode Code(s): R55 - SYNCOPE AND COLLAPSE (4) Cardiac pacemaker in situ Code(s): Z95.0 - PRESENCE OF CARDIAC PACEMAKER (5) Hyperlipidemia Code(s): E78.5 - HYPERLIPIDEMIA, UNSPECIFIED Qualifiers: Hyperlipidemia type: pure hypercholesterolemia (6) Hypertensive cardiovascular disease Code(s): I11.9 - HYPERTENSIVE HEART DISEASE WITHOUT HEART FAILURE Qualifiers: Heart failure presence: without heart failure (7) Sinus node dysfunction Code(s): I49.5 - SICK SINUS SYNDROME Assessment/Plan 11/21/2014 P-Myoview: Small sized mild inferobasal ischemia, LVEF 88% 07/16/2014 Echo: Normal LV size and fxn, mild-mod MR, mild TR, RVSP 36 mmHg 1. Left-sided colitis suspect ischemic, r/o infectious etiology 2. Vasovagal syncope referable to above 2. Hyperlipidemia 3. HTN/HCVD 4. 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 GERD 6. Moderate nonobstructive carotid disease P:1. Agree with bowel rest, levo/Flagyl, f/u stool studies. IVF, colonoscopy once clinically improved 2. Check orthostatic VS 3. Resume ASA, Zocor, Norvasc, carvedilol and Accupril judiciously as hemodynamics tolerate 4. F/u echo results being performed 5. Thank you for consultative opportunity
[2017-05-31 11:42] LABS: CPK 33 IU/L (26-192)
[2017-05-31 11:49] LABS: TROPONIN I (DFP) < 0.03 ng/ml (0.03-0.50)
[2017-05-31] MEDS ORDERED: D5-1/2NS+20 MEQ KCL - 20 MEQ/1,000 ML INFUS.BAG IV SCH (12:30)
--- NOTE | 2017-05-31 13:23 | CON.GI ---
Consult - History of Present Illness History of Present Illness: chart reviewed. 87 y.o female, with PMH of HTN, pacemaker, asthma, diverticulitis, frequent UTIs , who presents to the emergency room today complaining of intermittent and crampy generalized abdominal pain, nausea, and vomiting that started acutely 1 day ago. She reports frequent bowel movements, about 5 today since the pain has started. The bowel movements are soft, light brown, and formed. Denies hematochezia, mucus, dark tarry stool. Deneis chills, fever, jaundice dyspepsia , dysphagia, odynophagia, GERD like symptoms. Denies significant weigh loss in the last 12 moths. Chronically constipated, maintains hiugh fiber diet, take supplemental fiber, Colace, and miralax PRN. Has not had a formed bowel movement for 5 days prior to the onset of the symptoms. The patient also experienced one episode of non-bloody, but bilious vomiting. Denies fever, chills. Denies chest pain, SOB. Denies leg swelling. Denies sick contacts, recent travel, abx use, or eating out. - History Source History Provided By: Patient, Medical Record Limitations to Obtaining History: No Limitations - Past Medical History Cardio/Vascular: Yes: HTN, Hyperlipdemia ...: No - Past Surgical History Past Surgical History: Yes: Permanent Pacemaker - Alcohol/Substance Use Hx Alcohol Use: No - Smoking History Smoking history: Never smoked Have you smoked in the past 12 months: No Aproximately how many cigarettes per day: 0 Home Medications - Allergies Allergies/Adverse Reactions: Allergies Allergy/AdvReac Type Severity Reaction Status Date / Time house dust Allergy Verified 05/30/17 13:55 HAY FEVER Allergy Uncoded 12/26/16 10:02 NKDA Allergy Uncoded 12/26/16 10:02 - Home Medications Home Medications: Ambulatory Orders Simvastatin [Zocor] 30 mg PO DAILY 01/11/12 Amlodipine Besylate [Norvasc -] 10 mg PO DAILY 06/13/16 Aspirin [Ecotrin] 81 mg PO DAILY 06/13/16 Carvedilol [Coreg -] 25 mg PO BID 12/26/16 Quinapril HCl [Accupril] 40 mg PO DAILY 12/26/16 Omeprazole 20 mg PO DAILY 05/30/17 Family Disease History - Family Disease History Family History: Unremarkable (non-contributory) Review of Systems Findings/Remarks: please refer to H&P Physical Exam-GI Vital Signs: Vital Signs Temperature 100.0 F H 05/31/17 05:00 Pulse Rate 59 L 05/31/17 11:06 Respiratory Rate 18 05/31/17 05:00 Blood Pressure 117/64 05/31/17 11:06 O2 Sat by Pulse Oximetry (%) 99 05/31/17 11:34 Constitutional: Yes: Well Nourished, No Distress, Calm Eyes: Yes: Conjunctiva Clear HENT: Yes: Atraumatic Neck: Yes: Supple Cardiovascular: Yes: Regular Rate and Rhythm Respiratory: Yes: Regular Gastrointestinal Inspection: Yes: Distention. No: Ascites ...Auscultate: Yes: Normoactive Bowel Sounds ...Palpate: Yes: Tenderness (generalized). No: Firm/Rigid, Guarding, Mass, Tenderness, Rebound Neurological: Yes: Alert, Oriented Labs: CBC, BMP 05/31/17 07:30 05/31/17 07:30 Laboratory Results - last 24 hr 05/30/17 05/30/17 05/30/17 15:00 15:00 15:00 WBC 5.4 RBC 3.98 Hgb 12.9 Hct 38.0 MCV 95.4 MCH 32.5 MCHC 34.0 RDW 13.1 Plt Count 239 MPV 8.6 Neutrophils % 66.3 Lymphocytes % 25.3 Monocytes % 5.3 Eosinophils % 2.7 Basophils % 0.4 Sodium 132 L Potassium 4.3 Chloride 102 Carbon Dioxide 25 Anion Gap 5 L BUN 20 H D Creatinine 0.8 Creat Clearance w eGFR > 60 Random Glucose 115 H Calcium 9.6 Magnesium Total Bilirubin 0.9 D AST 28 D ALT 19 Alkaline Phosphatase 47 D Creatine Kinase Troponin I < 0.03 L Total Protein 6.3 L Albumin 3.8 05/31/17 05/31/17 05/31/17 07:20 07:20 07:30 WBC 9.1 D RBC 3.30 L Hgb 10.6 L D Hct 31.6 L D MCV 95.9 MCH 32.3 MCHC 33.7 RDW 13.3 Plt Count 190 D MPV 8.7 Neutrophils % Lymphocytes % Monocytes % Eosinophils % Basophils % Sodium Potassium Chloride Carbon Dioxide Anion Gap BUN Creatinine Creat Clearance w eGFR Random Glucose Calcium Magnesium 2.0 D Total Bilirubin AST ALT Alkaline Phosphatase Creatine Kinase 33 Troponin I < 0.03 L Total Protein Albumin 05/31/17 07:30 WBC RBC Hgb Hct MCV MCH MCHC RDW Plt Count MPV Neutrophils % Lymphocytes % Monocytes % Eosinophils % Basophils % Sodium 137 Potassium 3.9 Chloride 109 H Carbon Dioxide 23 Anion Gap 5 L BUN 23 H Creatinine 0.8 Creat Clearance w eGFR > 60 Random Glucose 103 Calcium 8.2 L Magnesium Total Bilirubin 0.8 AST 20 D ALT 17 Alkaline Phosphatase 33 D Creatine Kinase Troponin I Total Protein 5.1 L Albumin 2.8 L D Imaging - Results Cat Scan: Report Reviewed Problem List - Problems (1) Ischemic colitis Code(s): K55.9 - VASCULAR DISORDER OF INTESTINE, UNSPECIFIED (2) Infectious colitis Code(s): A09 - INFECTIOUS GASTROENTERITIS AND COLITIS, UNSPECIFIED (3) Colitis Code(s): K52.9 - NONINFECTIVE GASTROENTERITIS AND COLITIS, UNSPECIFIED Assessment/Plan An 87 yof with acute onset of the above symptoms. Afebrile, normal WBC, normal VS. Feeling better today. Given the underlying, chronic medical issues strongly suspect acute ischemic colitis. r/o infectious etiology. IBD is less likely. Agree with stool work up already ordered. Agree with abx Bowel rest Adequate hydration Frequent abdominal exams daily CBC, CMP A colonoscopy in 6-8 weeks Going forward, avoid constipation, hard stools. Miralax 1-4 doses/day titrate to have a bm daily, or every other day. Excessive fiber may not be very useful in an age-related lax colon,
[2017-05-31] MEDS: ATORVASTATIN CA 20 MG TABLET (FP) PO SCH (21:24)
[2017-06-01 08:26] LABS: BASOPHIL 0.5 % (0-2.0); MCH 32.3 pg (25.7-33.7); MCHC 33.4 g/dl (32.0-36.0); MEAN CELL VOLUME 96.7 fl (80-96); MEAN PLT VOLUME 8.6 fl (7.5-11.1); NEUTROPHILS 72.6 % (42.8-82.8); PLATELET COUNT 192 K/MM3 (134-434); RDW 13.6 % (11.6-15.6); WHITE BLOOD COUNT 7.3 K/mm3 (4.0-10.8)
[2017-06-01 08:27] LABS: ANION GAP 4 (8-16); CALCIUM 8.6 mg/dl (8.4-10.2); CO2 22 mmol/L (22-28); CREATININE 0.7 mg/dl (0.6-1.3); GLUCOSE,RANDOM 105 mg/dl (74-106)
[2017-06-01] MEDS: QUINAPRIL HCL 20 MG TABLET (FP) PO SCH (10:12)
[2017-06-01] MEDS: amLODIPine BESYLATE 10 MG TABLET (FP) PO SCH (10:13)
[2017-06-01] MEDS: PANTOPRAZOLE 20 MG TABLET (FP) PO SCH (10:13)
[2017-06-01] MEDS: CARVEDILOL 25 MG TABLET (FP) PO SCH ×2 (10:13→21:23)
[2017-06-01] MEDS: ASPIRIN COATED 81 MG TABLET.EC PO SCH (10:13)
--- NOTE | 2017-06-01 12:16 | PN ---
Physical Exam: SUBJECTIVE: Patient seen and examined Pain has improved mo diarhea tolerating diet OBJECTIVE: Vital Signs Period Temp Pulse Resp BP Sys/[place] Pulse Ox Last 24 Hr 98.6 F-99.7 F 59-61 16-18 91-102/39-46 92-98 Constitutional: Yes: Well Nourished, No Distress, Calm Eyes: Yes: Conjunctiva Clear HENT: Yes: Atraumatic Neck: Yes: Supple Cardiovascular: Yes: Regular Rate and Rhythm Respiratory: Yes: Regular Gastrointestinal Inspection: Yes: Distention. No: Ascites ...Auscultate: Yes: Normoactive Bowel Sounds ...Palpate: Yes: Tenderness mild (generalized). No: Firm/Rigid, Guarding, Mass , Tenderness, Rebound Neurological: Yes: Alert, Oriented Laboratory Results - last 24 hr 06/01/17 06/01/17 07:57 07:57 WBC 7.3 RBC 3.12 L Hgb 10.1 L Hct 30.2 L MCV 96.7 H MCH 32.3 MCHC 33.4 RDW 13.6 Plt Count 192 MPV 8.6 Neutrophils % 72.6 Lymphocytes % 19.2 D Monocytes % 6.7 Eosinophils % 1.0 Basophils % 0.5 Sodium 132 L Potassium 3.9 Chloride 106 Carbon Dioxide 22 Anion Gap 4 L BUN 21 H Creatinine 0.7 Random Glucose 105 Calcium 8.6 Active Medications Generic Name Dose Route Start Last Admin Trade Name Freq PRN Reason Stop Dose Admin Amlodipine Besylate 10 mg 05/31/17 10:00 06/01/17 10:13 Norvasc - PO 10 mg DAILY NERI Administration Aspirin 81 mg 05/31/17 10:00 06/01/17 10:13 Ecotrin - PO 81 mg DAILY NERI Administration Atorvastatin Calcium 20 mg 05/31/17 22:00 05/31/17 21:24 Lipitor - PO 20 mg HS NERI Administration Carvedilol 25 mg 05/31/17 10:00 06/01/17 10:13 Coreg - PO 25 mg BID NERI Administration Morphine Sulfate 2 mg 05/31/17 02:35 05/31/17 02:53 Morphine Sulfate IVPUSH 2 mg Q6H PRN Administration PAIN Ondansetron HCl 4 mg 05/31/17 02:36 Zofran Injection IVPUSH Q6H PRN NAUSEA AND/OR VOMITING Pantoprazole Sodium 20 mg 05/31/17 10:00 06/01/17 10:13 Protonix - PO 20 mg DAILY NERI Administration Quinapril HCl 40 mg 05/31/17 10:00 06/01/17 10:12 Accupril - PO 40 mg DAILY NERI Administration ASSESSMENT/PLAN: 1. Acute Colitis - likely ischemic -pain is improving , tolerating PO , no diarrhea or vomiting - levaquin /flagyl - bowel rest - ivf and encourage PO hydration 2. Hyponatremia - 2/2 fluid loss - repeat BMP , hydrate 3. Sinus node dysfunction - s/p PPM -echo 07/16/14, lv wnl, mild tr, moderate mr persantine stress 07/01 lvef 88% - d/c telemetry 4. Hypertension - controlled 5 Syncopal episode- likely orthostatic secondary to dehydration - carotid dopplers and echo were ordered by ED - PPM interrogation if recurs Discussed with Dr Smith Visit type - Emergency Visit Emergency Visit: Yes ED Registration Date: 05/31/17 Care time: The patient presented to the Emergency Department on the above date and was hospitalized for further evaluation of their emergent condition. - New Patient This patient is new to me today: Yes Date on this admission: 06/01/17 - Critical Care Critical Care patient: No - Discharge Referral Referred to [facility] No
--- NOTE | 2017-06-01 12:27 | PN ---
Progress Note, Physician Chief Complaint: Events noted Not in distress History of Present Illness: Patient was seen and examined. Awake and alert. Chart was reviewed. Denies chest pain, SOB or palpitations. Less abdominal discomfort - Current Medication List Current Medications: Active Medications Amlodipine Besylate (Norvasc -) 10 mg PO DAILY [facility] Last Admin: 06/01/17 10:13 Dose: 10 mg Aspirin (Ecotrin -) 81 mg PO DAILY [facility] Last Admin: 06/01/17 10:13 Dose: 81 mg Atorvastatin Calcium (Lipitor -) 20 mg PO HS [facility] Last Admin: 05/31/17 21:24 Dose: 20 mg Carvedilol (Coreg -) 25 mg PO BID [facility] Last Admin: 06/01/17 10:13 Dose: 25 mg Morphine Sulfate (Morphine Sulfate) 2 mg IVPUSH Q6H PRN PRN Reason: PAIN Last Admin: 05/31/17 02:53 Dose: 2 mg Ondansetron HCl (Zofran Injection) 4 mg IVPUSH Q6H PRN PRN Reason: NAUSEA AND/OR VOMITING Pantoprazole Sodium (Protonix -) 20 mg PO DAILY [facility] Last Admin: 06/01/17 10:13 Dose: 20 mg Quinapril HCl (Accupril -) 40 mg PO DAILY [facility] Last Admin: 06/01/17 10:12 Dose: 40 mg - Objective Vital Signs: Vital Signs Temperature 98.8 F 06/01/17 06:41 Pulse Rate 59 L 06/01/17 06:41 Respiratory Rate 18 06/01/17 06:41 Blood Pressure 102/46 06/01/17 06:41 O2 Sat by Pulse Oximetry (%) 92 L 06/01/17 06:41 Neck: Yes: Supple Cardiovascular: Yes: Regular Rate and Rhythm, Murmur (Soft SM), S1, S2 Respiratory: Yes: CTA Bilaterally Gastrointestinal: Yes: Soft. No: Tenderness Edema: No Additional Findings/Remarks: - Review of Systems Constitutional: denies: Weakness. denies: Chills, Fever Cardiovascular: denies: Shortness of Breath, denies: Chest Pain, Palpitations Respiratory: denies: SOB, denies: Cough, Hemoptysis, Orthopnea, PND Gastrointestinal: (+) Abdominal Pain, (-) Constipation, Diarrhea, Melena, Nausea , Rectal Bleeding, Vomiting Musculoskeletal: denies: Joint Pain Neurological: denies: Weakness. denies: Confusion, Dizziness, Headache, Seizure , Syncope Labs: CBC, BMP 06/01/17 07:57 06/01/17 07:57 Problem List - Problems (1) Abdominal pain Code(s): R10.9 - UNSPECIFIED ABDOMINAL PAIN Qualifiers: Abdominal location: left lower quadrant Qualified Code(s): R10.32 - Left lower quadrant pain (2) Ischemic colitis Code(s): K55.9 - VASCULAR DISORDER OF INTESTINE, UNSPECIFIED (3) Cardiac pacemaker in situ Code(s): Z95.0 - PRESENCE OF CARDIAC PACEMAKER (4) Hyperlipidemia Code(s): E78.5 - HYPERLIPIDEMIA, UNSPECIFIED Qualifiers: Hyperlipidemia type: pure hypercholesterolemia Qualified Code(s): E78.00 - Pure hypercholesterolemia, unspecified; E78.0 - Pure hypercholesterolemia (5) Hypertensive cardiovascular disease Code(s): I11.9 - HYPERTENSIVE HEART DISEASE WITHOUT HEART FAILURE Qualifiers: Heart failure presence: without heart failure Qualified Code(s): I11.9 - Hypertensive heart disease without heart failure (6) Sinus node dysfunction Code(s): I49.5 - SICK SINUS SYNDROME Assessment/Plan 1. Possible ischemic colitis - improving 2. Vasovagal syncope 2. Hypercholesterolemia 3. HTN/HCVD 4. 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 GERD 6. Moderate carotid artery disease PLAN: 1. Bowel rest, antiobiotic coverage, GI follow up 2. Check orthostasis 3. Continue ASA, Zocor, Norvasc, carvedilol and Accupril as hemodynamics tolerate 4. Transthoracic echocardiography to assess LV/RV and valvular function Further plans are to follow Mio Smith MD
[2017-06-01] MEDS: LEVOFLOXACIN 500 MG TABLET (FP) PO SCH (12:45)
[2017-06-01] MEDS: metroNIDAZOLE 250 MG TABLET PO SCH ×2 (12:45→21:22)
[2017-06-01] MEDS: ATORVASTATIN CA 20 MG TABLET (FP) PO SCH (21:23)
[2017-06-02 06:10] VITALS: BP 115/43; PULSE 65; TEMP 98.6
[2017-06-02 08:41] LABS: BASOPHIL 0.6 % (0-2.0); EOSINOPHIL 2.9 % (0-4.5); MCH 31.9 pg (25.7-33.7); MCHC 32.8 g/dl (32.0-36.0); MEAN CELL VOLUME 97.4 fl (80-96); MEAN PLT VOLUME 9.1 fl (7.5-11.1); NEUTROPHILS 68.5 % (42.8-82.8); PLATELET COUNT 178 K/MM3 (134-434); RDW 13.6 % (11.6-15.6); WHITE BLOOD COUNT 6.1 K/mm3 (4.0-10.8)
[2017-06-02 09:06] LABS: ANION GAP 8 (8-16); CALCIUM 8.5 mg/dl (8.4-10.2); CO2 21 mmol/L (22-28); CREATININE 0.6 mg/dl (0.6-1.3); GLUCOSE,RANDOM 84 mg/dl (74-106)
[2017-06-02] MEDS: amLODIPine BESYLATE 10 MG TABLET (FP) PO SCH (09:42)
[2017-06-02] MEDS: PANTOPRAZOLE 20 MG TABLET (FP) PO SCH (09:42)
[2017-06-02] MEDS: QUINAPRIL HCL 20 MG TABLET (FP) PO SCH (09:43)
[2017-06-02] MEDS: LEVOFLOXACIN 500 MG TABLET (FP) PO SCH (09:43)
[2017-06-02] MEDS: ASPIRIN COATED 81 MG TABLET.EC PO SCH (09:43)
[2017-06-02] MEDS: CARVEDILOL 25 MG TABLET (FP) PO SCH (09:43)
[2017-06-02] MEDS: metroNIDAZOLE 250 MG TABLET PO SCH (09:44)
[2017-06-02] MEDS ORDERED: oxyCODONE HCL 5 MG TABLET PO PRN (10:36)
--- NOTE | 2017-06-02 11:08 | DS ---
Physical Exam: SUBJECTIVE: Patient seen and examined. No abdominal pain. No nausea/vomiting. Tolerated full soft diet for lunch. Not requiring any pain medication. OBJECTIVE: Vital Signs Period Temp Pulse Resp BP Sys/[place] Pulse Ox Last 24 Hr 97.7 F-98.6 F 60-65 20-20 111-115/43-59 95 PHYSICAL EXAM GENERAL: The patient is awake, alert, and fully oriented, in no acute distress. EYES: PERRL, extraocular movements intact, sclera anicteric, conjunctiva clear. ENT: Ears normal, nares patent, oropharynx clear without exudates, moist mucous membranes. NECK: Trachea midline, full range of motion, supple. LUNGS: Breath sounds equal, clear to auscultation bilaterally, no wheezes, no crackles, no accessory muscle use. HEART: Regular rate and rhythm, S1, S2 without murmur, rub or gallop. ABDOMEN: Soft, nontender, nondistended, normoactive bowel sounds, no guarding, no rebound, no hepatosplenomegaly, no masses. EXTREMITIES: 2+ pulses, warm, well-perfused, no edema. NEUROLOGICAL: Cranial nerves II through XII grossly intact. Normal speech, gait not observed. PSYCH: Normal mood, normal affect. SKIN: Warm, dry, normal turgor, no rashes or lesions noted. LABS Laboratory Results - last 24 hr 06/02/17 06/02/17 06:00 06:00 WBC 6.1 RBC 3.19 L Hgb 10.2 L Hct 31.0 L MCV 97.4 H MCH 31.9 MCHC 32.8 RDW 13.6 Plt Count 178 MPV 9.1 Neutrophils % 68.5 Lymphocytes % 19.9 Monocytes % 8.1 Eosinophils % 2.9 D Basophils % 0.6 Sodium 136 Potassium 3.6 Chloride 107 Carbon Dioxide 21 L Anion Gap 8 BUN 13 D Creatinine 0.6 Random Glucose 84 Calcium 8.5 HOSPITAL COURSE: This is an 87 year old female with a history of HTN, HLD, GERD , sinus node dysfunction s/p PPM, and diverticulitis who presented to the ED on 05/30 with abdominal cramping, LLQ pain, nausea, loose BMs, and bilious vomiting. The patient's son reports that while the patient was in the bathroom using the toilet, she became pale and dizzy, and for a few seconds did not respond to her name. She recovered and has remained at her baseline since Imaging: CTAP 05/30: Extensive colitis of the left colon Echocardiogram 05/31/17: Grade II diastolic dysfunction Carotid doppler studies 05/31: 50-69% right ICA stensosis The patient was started on Levaquin/Flagyl for colitis with improvement in symptoms. She was evaluated by GI, who suspected ischemic colitis with possible infectious etiology. They recommended a bowel regimen and outpatient colonoscopy in 6-8wks. The patient was provided information for clinic followup. The patient was also seen by cardiology for the near syncopal episode. Echocardiogram was obtained. No changes were made to her medication regimen. Symptoms did not recur. Plan discussed with patient and family. Return precautions reviewed. Date of Admission:05/31/17 Date of Discharge: 06/02/17 Minutes to complete discharge: 40 Discharge Summary Reason For Visit: ABDOMIANL PAIN Current Active Problems Abdominal pain (Acute) Colitis (Acute) DVT prophylaxis (Acute) Infectious colitis (Acute) Ischemic colitis (Acute) Vaso vagal episode (Acute) Condition: Good - Instructions Diet, Activity, Other Instructions: -Take Levaquin and Flagyl as prescribed for treatment of colitis -Use Colace (a stool softener) and Miralax (as prescribed) for constipation -Avoid high fiber foods -Follow up with Dr. Alonzo and Dr. Frias (for colonoscopy) as instructed -Return here for worsening abdominal pain, vomiting/inability to drink fluids, fever (temperature over 100.4) or any other concerning symptoms Referrals: Haroon Alonzo MD [Primary Care Provider] - 1 Week Daquan Frias MD [Staff Physician] - (Call now for appointment for colonoscopy in 6 wks) Disposition: HOME - Home Medications Comprehensive Discharge Medication List: Ambulatory Orders Simvastatin [Zocor] 30 mg PO DAILY 01/11/12 Amlodipine Besylate [Norvasc -] 10 mg PO DAILY 06/13/16 Aspirin [Ecotrin] 81 mg PO DAILY 06/13/16 Carvedilol [Coreg -] 25 mg PO BID 12/26/16 Quinapril HCl [Accupril] 40 mg PO DAILY 12/26/16 Omeprazole 20 mg PO DAILY 05/30/17 This patient is new to me today: Yes Date on this admission: 06/02/17 Emergency Visit: No Critical Care patient: No - Discharge Referral Referred to [facility] No
--- NOTE | 2017-06-02 14:28 | DS ---
Physical Exam: SUBJECTIVE: Patient seen and examined OBJECTIVE: Vital Signs Period Temp Pulse Resp BP Sys/[place] Pulse Ox Last 24 Hr 97.7 F-98.6 F 60-65 20-20 111-115/43-59 95 PHYSICAL EXAM GENERAL: The patient is awake, alert, and fully oriented, in no acute distress. HEAD: Normal with no signs of trauma. EYES: PERRL, extraocular movements intact, sclera anicteric, conjunctiva clear. ENT: Ears normal, nares patent, oropharynx clear without exudates, moist mucous membranes. NECK: Trachea midline, full range of motion, supple. LUNGS: Breath sounds equal, clear to auscultation bilaterally, no wheezes, no crackles, no accessory muscle use. HEART: Regular rate and rhythm, S1, S2 without murmur, rub or gallop. ABDOMEN: Soft, nontender, nondistended, normoactive bowel sounds, no guarding, no rebound, no hepatosplenomegaly, no masses. EXTREMITIES: 2+ pulses, warm, well-perfused, no edema. NEUROLOGICAL: Cranial nerves II through XII grossly intact. Normal speech, gait not observed. PSYCH: Normal mood, normal affect. SKIN: Warm, dry, normal turgor, no rashes or lesions noted. LABS Laboratory Results - last 24 hr 06/02/17 06/02/17 06:00 06:00 WBC 6.1 RBC 3.19 L Hgb 10.2 L Hct 31.0 L MCV 97.4 H MCH 31.9 MCHC 32.8 RDW 13.6 Plt Count 178 MPV 9.1 Neutrophils % 68.5 Lymphocytes % 19.9 Monocytes % 8.1 Eosinophils % 2.9 D Basophils % 0.6 Sodium 136 Potassium 3.6 Chloride 107 Carbon Dioxide 21 L Anion Gap 8 BUN 13 D Creatinine 0.6 Random Glucose 84 Calcium 8.5 HOSPITAL COURSE: Date of Admission:05/31/17 Date of Discharge: 06/02/17 Minutes to complete discharge: 35 Discharge Summary Reason For Visit: ABDOMIANL PAIN Current Active Problems Colitis (Acute) DVT prophylaxis (Acute) Infectious colitis (Acute) Ischemic colitis (Acute) Vaso vagal episode (Acute) Condition: Fair - Instructions Diet, Activity, Other Instructions: -Take Levaquin and Flagyl as prescribed for treatment of colitis -Use Colace (a stool softener) and Miralax (as prescribed) for constipation -Avoid high fiber foods -Follow up with Dr. Alonzo and Dr. Frias (for colonoscopy) as instructed -Return here for worsening abdominal pain, vomiting/inability to drink fluids, fever (temperature over 100.4) or any other concerning symptoms Referrals: Haroon Alonzo MD [Primary Care Provider] - 1 Week Daquan Frias MD [Staff Physician] - (Call now for appointment for colonoscopy in 6 wks) - Home Medications Comprehensive Discharge Medication List: Ambulatory Orders Simvastatin [Zocor] 30 mg PO DAILY 01/11/12 Amlodipine Besylate [Norvasc -] 10 mg PO DAILY 06/13/16 Aspirin [Ecotrin] 81 mg PO DAILY 06/13/16 Carvedilol [Coreg -] 25 mg PO BID 12/26/16 Quinapril HCl [Accupril] 40 mg PO DAILY 12/26/16 Omeprazole 20 mg PO DAILY 05/30/17 Docusate Sodium [Colace -] 100 mg PO TID PRN #21 capsule 06/02/17 Levofloxacin [Levaquin] 750 mg PO DAILY #7 tab 06/02/17 Metronidazole [Flagyl -] 500 mg PO TID #21 tablet 06/02/17 Polyethylene Glycol 3350 [Miralax (For Daily Use) -] 17 gm PO BID #1 bottle - Discharge Referral Referred to [facility] No
--- NOTE | 2017-06-02 17:31 | EKG ---
Test Reason : Blood Pressure : / mmHG Vent. Rate : 060 BPM Atrial Rate : 060 BPM P-R Int : 218 ms QRS Dur : 094 ms QT Int : 442 ms P-R-T Axes : -16 038 059 degrees QTc Int : 442 ms Atrial-paced rhythm with prolonged AV conduction ABNORMAL ECG WHEN COMPARED WITH ECG OF 26-DEC-2016 10:01, NO SIGNIFICANT CHANGE WAS FOUND Confirmed by MARIA ISABEL NAIR MD ([id number] on 06/02/2017 5:31:12 PM Referred By: DR NULL Confirmed By:MARIA ISABEL NAIR MD
== END 2017-06-02 15:50 | disposition home or self-care (01) | DRG 394 ==
LOC: FER 13:53 → SUPCPDRO 13:53 → FM/S 17:52 → OBSVTOIN 05-31 16:10
PROVIDERS: ADMIT Internal Medicine; ATTEND Registered Nurse Emergency
DX: K55.039 Acute (reversible) ischemia of large intestine, extent unspecified (principal); E87.1 Hypo-osmolality and hyponatremia; Z95.0 Presence of cardiac pacemaker; J45.909 Unspecified asthma, uncomplicated; K21.9 Gastro-esophageal reflux disease without esophagitis; E78.5 Hyperlipidemia, unspecified; R55 Syncope and collapse; I11.9 Hypertensive heart disease without heart failure; I34.0 Nonrheumatic mitral (valve) insufficiency; Z87.440 Personal history of urinary (tract) infections; E86.0 Dehydration; K59.00 Constipation, unspecified
CPT/HCPCS: 36415; 74020-TC; 74177-TC; 80048; 80053; 82550; 83735; 84484; 85025; 85027; 87086; 93005; 93306-TC; 93880-TC; 97116-GP; 97161-GP; 99283-25; G0378

== ENCOUNTER 2017-08-11 20:22 | Inpatient (IN) | payer OTHER ==
--- NOTE | 2017-08-11 20:29 | PDOC ---
History of Present Illness - General History Source: Patient Exam Limitations: No Limitations - History of Present Illness Initial Comments: 08/11/17 21:07 The patient is a 87 year old female, with a significant past medical history of colitis, diverticulitis, and multiple UTIs, who presents to the emergency department via EMS with diffuse abdominal cramps. As per patient, she has had intermittent cramps all day and small, loose mucus like stool. She reports her abdominal pain to worsen after dinner. As per patients son, she had approximately 5 seconds of loss of consciousness, however, she did not hit her head. She reports to have seen her urologist recently. She reports her symptoms to be similar to her colitis. She denies recent fevers or chills. She denies recent constipation. She denies recent chest pain or shortness of breath. Primary Care Physician: Dr. Haroon Alonzo <Julia Perkins - Last Filed: 08/11/17 21:07> <Sushma Mae - Last Filed: 08/12/17 03:37> - General Chief Complaint: Pain Stated Complaint: ABDOMINAL PAIN Time Seen by Provider: 08/11/17 20:29 Past History <Julia Perkins - Last Filed: 08/11/17 21:07> - Past Medical History Anemia: No Asthma: Yes Cancer: No Cardiac Disorders: No CVA: No COPD: No CHF: No Dementia: No Diabetes: No GI Disorders: Yes (GERD,diverticulitis) Disorders: Yes (UTI) HTN: Yes Hypercholesterolemia: Yes Liver Disease: No Seizures: No Thyroid Disease: No - Surgical History Abdominal Surgery: Yes Appendectomy: Yes Cardiac Surgery: Yes (PACEMAKER) Cholecystectomy: No Lung Surgery: No Neurologic Surgery: No Orthopedic Surgery: No - Suicide/Smoking/Psychosocial Hx Smoking Status: No Smoking History: Never smoked Have you smoked in the past 12 months: No Number of Cigarettes Smoked Daily: 0 Hx Alcohol Use: No Drug/Substance Use Hx: No Substance Use Type: None Hx Substance Use Treatment: No <Sushma Mae - Last Filed: 08/12/17 03:37> - Past Medical History Allergies/Adverse Reactions: Allergies Allergy/AdvReac Type Severity Reaction Status Date / Time house dust Allergy Verified 05/30/17 13:55 HAY FEVER Allergy Uncoded 12/26/16 10:02 NKDA Allergy Uncoded 12/26/16 10:02 Home Medications: Ambulatory Orders Simvastatin [Zocor] 30 mg PO DAILY 01/11/12 Amlodipine Besylate [Norvasc -] 10 mg PO DAILY 06/13/16 Aspirin [Ecotrin] 81 mg PO DAILY 06/13/16 Carvedilol [Coreg -] 25 mg PO BID 12/26/16 Quinapril HCl [Accupril -] 40 mg PO DAILY 12/26/16 Omeprazole 20 mg PO DAILY 05/30/17 Docusate Sodium [Colace -] 100 mg PO TID PRN #21 capsule 06/02/17 Hydroxyzine HCl 10 mg PO DAILY 08/11/17 Methenamine Hippurate [Hiprex [Nf] -] 1 gm PO BID 08/11/17 Polyethylene Glycol 3350 [Miralax (For Daily Use) -] 17 gm PO BID PRN 08/11/17 Tamsulosin HCl [Flomax] 0.4 mg PO DAILY 08/11/17 Review of Systems - Review of Systems Able to Perform ROS?: Yes Comments:: 08/11/17 21:07 GENERAL/CONSTITUTIONAL: No fever or chills. No weakness. HEAD, EYES, EARS, NOSE AND THROAT: No change in vision. No ear pain or discharge. No sore throat. CARDIOVASCULAR: No chest pain or shortness of breath. RESPIRATORY: No cough, wheezing, or hemoptysis. GASTROINTESTINAL: +Diffuse abdominal pain. No nausea, vomiting, diarrhea or constipation. GENITOURINARY: No dysuria, frequency, or change in urination. MUSCULOSKELETAL: No joint or muscle swelling or pain. No neck or back pain. SKIN: No rash NEUROLOGIC: +Loss of consciousness. No headache, vertigo or change in strength/ sensation. ENDOCRINE: No increased thirst. No abnormal weight change. HEMATOLOGIC/LYMPHATIC: No anemia, easy bleeding, or history of blood clots. ALLERGIC/IMMUNOLOGIC: No hives or skin allergy. All Other Systems: Reviewed and Negative <Julia Perkins - Last Filed: 08/11/17 21:07> *Physical Exam - Vital Signs Last Vital Signs Temp Pulse Resp BP Pulse Ox 98.0 F 62 18 100/57 100 08/11/17 20:24 08/11/17 20:24 08/11/17 20:24 08/11/17 20:24 08/11/17 20:24 - Physical Exam Comments: 08/11/17 21:09 GENERAL: Awake, alert, and fully oriented, in no acute distress HEAD: No signs of trauma EYES: PERRLA, EOMI, sclera anicteric, conjunctiva clear ENT: Auricles normal inspection, hearing grossly normal, nares patent, oropharynx clear without exudates. Moist mucosa NECK: Normal ROM, supple, no lymphadenopathy, JVD, or masses LUNGS: Breath sounds equal, clear to auscultation bilaterally. No wheezes, and no crackles HEART: Regular rate and rhythm, normal S1 and S2, no murmurs, rubs or gallops ABDOMEN: +Mildly diffuse abdominal tenderness. Soft, normoactive bowel sounds. No guarding, no rebound. No masses EXTREMITIES: Normal range of motion, no edema. No clubbing or cyanosis. No cords, erythema, or tenderness NEUROLOGICAL: Cranial nerves II through XII grossly intact. Normal speech, normal gait SKIN: Warm, Dry, normal turgor, no rashes or lesions noted. <Julia Perkins - Last Filed: 08/11/17 21:07> ED Treatment Course - Medications Given in the ED: ED Medications Discontinued Medications Generic Name Dose Route Start Last Admin Trade Name Harshalq PRN Reason Stop Dose Admin Acetaminophen 1,000 mg 08/11/17 20:51 08/11/17 20:55 Ofirmev Injection - IVPB 08/11/17 20:52 1,000 mg ONCE ONE Administration Ondansetron HCl 4 mg 08/11/17 20:44 08/11/17 20:51 Zofran Injection IVPB 08/11/17 20:45 4 mg ONCE ONE Administration <Julia Perkins - Last Filed: 08/11/17 21:07> - LABORATORY CBC & Chemistry Diagram: 08/11/17 20:50 08/11/17 20:50 <Sushma Mae - Last Filed: 08/12/17 03:37> Medical Decision Making - Medical Decision Making 08/11/17 21:11 Pt comes with vomiting tonight. She has been having mucusy stools. She feels pain like her usual diverticulitis pain. She has a hx of urine infections. SHe was treated by her urologist Veronica with bactrimx 5 days. The UTI didn't clear so he put her on atarax and ___. Pt states that the new meds make her ill and she doesn't want to take it. She has no other complaints. She ate gamez carla. beans, mashed potatoes and a cookie and tea for dinner. She comes in with some vomiting.States that she was passing stools on the toilet and she felt dizzy. She got up and almost passed out. Her son ran to the bathroom and almost passed out 08/11/17 23:35 Patient Name: SHAUN ANDUJAR THIS IS A PRELIMINARY REPORT FROM [facility] EXAM: CT abdomen and pelvis without contrast IMAGES:500 DATE OF EXAM: 2017-08-11 21:59:12 REASON FOR EXAM: Rule out diverticulitis COMPARISON: None Findings: Atelectasis and scarring in lung bases. No pleural effusions. Small hiatal hernia. The liver, gallbladder, pancreas, adrenal glands, and spleen are grossly unremarkable. Small pancreatic calcifications, likely vascular. Small left renal calcification. No ureteral calculi or hydronephrosis. No AAA. *Substantial stool throughout most of the colon. Colon wall thickening with adjacent edema involving the distal transverse colon and extending to the proximal sigmoid colon suggestive of stercoral colitis. Other causes of colitis (infection or IBD) are not excluded. Hysterectomy. No evidence for diverticulitis, small bowel obstruction, or free air. Trace pelvic fluid. Distended urinary bladder with mild wall thickening. THIS DOCUMENT HAS BEEN ELECTRONICALLY SIGNED 08/11/17 23:39 Pt's amylase is elevated, but LFTS and lipase are normal. Pt will be treated with levaquin and flagyl. She received Saline for her hyponatremia (initial bag of fluid was hanging from the field, given by EMS). UA/urine culture pending. 08/12/17 01:04 Pt is getting progressively more hypotensive, despite 1L fluid, and reglan/ zofran/flagy/levaquin fluids. She has a 2nd L running, I just placed the order, though it has been running. She will be transferred to [facility] for admission. ICU DEVELOPMENT MANAGER Eduardo and Hospitalist are aware of the transfer. Pt's family also agreeing to the transfer. 08/12/17 01:12 Pt's EKG demonstrates an atrial pacemaker. Portable CXR pending. 08/12/17 03:36 Hospitalist aware of the patient. Pt feels better after fleets enema allowed her to have 2 normal sized bowel movements. Stool is well formed and normal color, non bloody and no mucusy. <Sushma Mae - Last Filed: 08/12/17 03:37> *DC/Admit/Observation/Transfer - Attestations Scribe Attestion: 08/11/17 21:10 Documentation prepared by Julia Perkins, acting as medical dosimetrist for Sushma Mae MD. <Julia Perkins - Last Filed: 08/11/17 21:07> - Discharge Dispostion Admit: Yes <Sushma Mae - Last Filed: 08/12/17 03:37> Diagnosis at time of Disposition: Colitis, Intractable nausea and vomiting - Discharge Dispostion Condition at time of disposition: Guarded
[2017-08-11] MEDS ORDERED: ONDANSETRON 4 MG/2 ML VIAL IVPB ONE (20:44)
[2017-08-11] MEDS ORDERED: ONDANSETRON 4 MG/2 ML VIAL ONE (20:47)
[2017-08-11] MEDS ORDERED: ACETAMINOPHEN 1000 MG/100 ML VIAL (NON FORMULARY) IVPB ONE (20:51)
[2017-08-11] MEDS ORDERED: ACETAMINOPHEN INJECTION 100 ML IVPB ONE (20:52)
[2017-08-11 21:31] LABS: BASO % 0.7 % (0-2.0); HEMOGLOBIN 11.8 GM/dl (10.7-15.3); LYMPH % 31.3 % (8-40); MCH 32.3 pg (25.7-33.7); MCHC 34.6 g/dl (32.0-36.0); MEAN CELL VOLUME 93.4 fl (80-96); MEAN PLT VOLUME 7.9 fl (7.5-11.1); MONO % 4.6 % (3.8-10.2); NEUT % 60.4 % (42.8-82.8); PLATELET COUNT 229 K/MM3 (134-434); RBC 3.64 M/mm3 (3.60-5.2); RDW 12.5 % (11.6-15.6); WHITE BLOOD COUNT 4.9 K/mm3 (4.0-10.8)
[2017-08-11 21:41] LABS: ALBUMIN 3.6 g/dl (3.5-5.0); ALK PHOS 43 U/L (32-92); AMYLASE 206 U/L (25-125); ANION GAP 7 (8-16); BLOOD UREA NITROGEN 19 mg/dl (7-18); CALCIUM 9.5 mg/dl (8.4-10.2); CHLORIDE 100 mmol/L (98-107); CO2 23 mmol/L (22-28); CREATININE 0.9 mg/dl (0.6-1.3); GLUCOSE,RANDOM 129 mg/dl (74-106); POTASSIUM 4.2 mmol/L (3.5-5.1); SGOT/AST 20 U/L (10-42); SGPT/ALT 15 U/L (10-40); SODIUM 130 mmol/L (136-145); TOT PROT 6.4 g/dl (6.4-8.3)
[2017-08-11 21:50] LABS: BILIRUBIN,TOTAL 0.6 mg/dl (0.2-1.0)
[2017-08-11 22:19] LABS: LIPASE 366 U/L (73-393)
[2017-08-11] MEDS ORDERED: METOCLOPRAMIDE HCL INJECTION 10 MG/2 ML VIAL IVPUSH ONE (22:38)
[2017-08-11] MEDS ORDERED: morphine CARPU-JECT 2 MG/1 ML DISP.SYRIN ONE (23:04)
[2017-08-11] MEDS ORDERED: morphine CARPU-JECT 2 MG/1 ML DISP.SYRIN IVPUSH ONE (23:08)
[2017-08-11 23:40] LABS: URINE APPEARANCE Clear; URINE BILIRUBIN Negative (NEGATIVE); URINE BLOOD Negative (NEGATIVE); URINE GLUCOSE (UA) Negative (NEGATIVE); URINE KETONE Negative (NEGATIVE); URINE NITRITE Negative (NEGATIVE); URINE UROBILINOGEN 0.2 (0.2-1.0)
[2017-08-11 23:43] LABS: URINE COLOR YELLOW; URINE LEUK ESTERASE TRACE (NEGATIVE); URINE PROTEIN 2+ (NEGATIVE)
[2017-08-11] MEDS ORDERED: SODIUM PHOSPHATE/NA BIPHOS 133 ML ENEMA PR ONE (23:53)
[2017-08-12] LABS: EPI CELLS 0-3 /HPF; URINE RBC 0-3 /hpf (0-3); URINE WBC 50-80 (0-5)
[2017-08-12] MEDS ORDERED: DOCUSATE SODIUM 100 MG CAPSULE (FP) PO PRN (00:06)
[2017-08-12] MEDS ORDERED: SODIUM CHLORIDE 1,000 ML IV STA (00:22)
[2017-08-12] MEDS ORDERED: SODIUM CHLORIDE 0.9% 500 ML INFUS.BAG IV ONE (00:28)
--- NOTE | 2017-08-12 02:14 | PN ---
Teaching Attending Note Name of Resident: Ed Hong ATTENDING PHYSICIAN STATEMENT I saw and evaluated the patient. I reviewed the resident's note and discussed the case with the resident. I agree with the resident's findings and plan as documented. SUBJECTIVE: 87 yo F with pmhx. of colitis, diverticulitis, and multiple UTI's who presents with abdominal cramping. States cramps were all over abdomen and intermittent in nature. States she has had loose mucous like stool. States she DID NOT have any loc, but felt dizzy and fell. ED Course- At ED Physcisian pt. given 2 L of NS with hypotension OBJECTIVE: Physical: VS: Vital Signs Period Temp Pulse Resp BP Sys/[place] Pulse Ox Last 24 Hr 98.0 F 60-62 15-20 92-111/48-94 98-100 GEN: NAD, Resting in bed, AA0X3 HEENT: NCAT, PERRL, Throat without erythema or exudates CARD: RRR S1, S2 RESP: CTAB ABD: BSx4, NTD to palpation EXT: - C/C/E CBCD WBC 4.9 K/mm3 (4.0-10.8) 08/11/17 20:50 RBC 3.64 M/mm3 (3.60-5.2) 08/11/17 20:50 Hgb 11.8 GM/dl (10.7-15.3) D 08/11/17 20:50 Hct 34.0 % (32.4-45.2) 08/11/17 20:50 MCV 93.4 fl (80-96) 08/11/17 20:50 MCHC 34.6 g/dl (32.0-36.0) 08/11/17 20:50 RDW 12.5 % (11.6-15.6) 08/11/17 20:50 Plt Count 229 K/MM3 (134-434) 08/11/17 20:50 MPV 7.9 fl (7.5-11.1) 08/11/17 20:50 CMP Sodium 130 mmol/L (136-145) L 08/11/17 20:50 Potassium 4.2 mmol/L (3.5-5.1) 08/11/17 20:50 Chloride 100 mmol/L (98-107) 08/11/17 20:50 Carbon Dioxide 23 mmol/L (22-28) 08/11/17 20:50 Anion Gap 7 (8-16) L 08/11/17 20:50 BUN 19 mg/dl (7-18) H D 08/11/17 20:50 Creatinine 0.9 mg/dl (0.6-1.3) D 08/11/17 20:50 Creat Clearance w eGFR 58.95 (>60) 08/11/17 20:50 Random Glucose 129 mg/dl (74-106) H D 08/11/17 20:50 Calcium 9.5 mg/dl (8.4-10.2) 08/11/17 20:50 Total Bilirubin 0.6 mg/dl (0.2-1.0) D 08/11/17 20:50 AST 20 U/L (10-42) 08/11/17 20:50 ALT 15 U/L (10-40) 08/11/17 20:50 Alkaline Phosphatase 43 U/L (32-92) D 08/11/17 20:50 Total Protein 6.4 g/dl (6.4-8.3) D 08/11/17 20:50 Albumin 3.6 g/dl (3.5-5.0) D 08/11/17 20:50 Home Medications Medication Instructions Recorded Simvastatin [Zocor] 30 mg PO DAILY 01/11/12 Amlodipine Besylate [Norvasc -] 10 mg PO DAILY 06/13/16 Aspirin [Ecotrin] 81 mg PO DAILY 06/13/16 Carvedilol [Coreg -] 25 mg PO BID 12/26/16 Quinapril HCl [Accupril -] 40 mg PO DAILY 12/26/16 Omeprazole 20 mg PO DAILY 05/30/17 Docusate Sodium [Colace -] 100 mg PO TID PRN #21 capsule 06/02/17 Hydroxyzine HCl 10 mg PO DAILY 08/11/17 Methenamine Hippurate [Hiprex [Nf] 1 gm PO BID 08/11/17 -] Polyethylene Glycol 3350 [Miralax 17 gm PO BID PRN 08/11/17 (For Daily Use) -] Tamsulosin HCl [Flomax] 0.4 mg PO DAILY 08/11/17 EKG: PENDING CXR: PENDING CT HEAD- PENDING CT ABD/PELVIS: Atelectasis and scarring in lung bases. No pleural effusions. Small hiatal hernia. The liver, gallbladder, pancreas, adrenal glands, and spleen are grossly unremarkable. Small pancreatic calcifications, likely vascular. Small left renal calcification. No ureteral calculi or hydronephrosis. No AAA. *Substantial stool throughout most of the colon. Colon wall thickening with adjacent edema involving the distal transverse colon and extending to the proximal sigmoid colon suggestive of stercoral colitis. Other causes of colitis (infection or IBD) are not excluded. Hysterectomy. No evidence for diverticulitis, small bowel obstruction, or free air. Trace pelvic fluid. Distended urinary bladder with mild wall thickening. ASSESSMENT AND PLAN: 87 F who presents with abdominal pain 1.) Sterocoral Colitis - Administered Fleet Enema at [facility] - Serial Abd. Exams - LevaqUin ( IF QtC is ok) and Flagy - Cx 2.) Hypotension - Now resolved - Hold PO BP Meds - Gentle Hydration 3.) Dvt ppx - Heparin 5000 q8 Accepted to ICU CC Time: 35 minutes, ok to transfer to floor
--- NOTE | 2017-08-12 03:11 | CONSULT ---
Consult Consult Specialty:: pulm critical care Referred by:: hortensia thompson Reason for Consultation:: abdominal pain - History of Present Illness Chief Complaint: abdominal pain History of Present Illness: This is an 87 yo F w/ h/o colitis, diverticuliosis, and recurrent UTIs who presented to [facility] ED w/ c/o abdominal pain, described as diffuse intermittent cramping. Pt endorsed constipation and loose mucous like stool. Pt stated that she also had ~5 sec of LOC, but did not hit her head because pt's son caught her in his arms when she got up from the bathroom. As per ED, pt was given 2 L of NS for SBP in the mid 90s s/p morphine x1 for pain, was started on flagyl, and given an enema. ED physician endorsed that pt vomitted x1. CT of abd/pelvis showed substantial stool throughout most of the colon. Colon wall thickening with adjacent edema involving the distal transverse colon and extending to the proximal sigmoid colon suggestive of stercoral colitis. No free air. No diverticulitis. No obstruction. EKG shows atrial paced @ 60bpm. Hgb= 11.4, Labs remarkable for Na= 130. Upon arrival to ICU, pt is alert and oriented x4, c/o intermittent abdominal cramping, states relief of constipation after enema, pt had another extremely large BM x1 here. No bloody stool. No n/v/d. No dizziness, MCMAHON, diaphoresis, CP. Pt is hemodynamically stable and may transfer to floor when bed is available. 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: Alzheimer's, CVA, Dementia, Migraine, Multiple Sclerosis, Peripheral Neuropathy, Parkinson's, Seizure, Syncope, TIA, Vertigo, Other Cardio/Vascular: Yes: HTN, Hyperlipdemia Pulmonary: No: Asthma, Bronchitis, Cancer, COPD, O2 Dependent, Pneumonia, Previously Intubated, Pulmonary Embolus, Pulmonary Fibrosis, Sleep Apnea, Other Gastrointestinal: Yes: Constipation, Diverticulitis, Diverticulosis, Hiatal Hernia Hepatobiliary: No: Cirrhosis, Cholelithiasis, Cholecystitis, Choledocholithiasis , Hepatitis A, Hepatitis B, Hepatitis C, Other Renal/: Yes: UTI Heme/Onc: No: Anemia, B12 Deficiency, Bleeding Disorder, Cancer, Current Chemotherapy, Current Radiation Therapy, Hemochromatosis, Hypercoaguable State, Myeloproliferative Synd, Sickle Cell Disease, Sickle Cell Trait, Thrombocytopenia, Other Infectious Disease: No: AIDS, C-Diff, Herpes Zoster, HIV, MRSA, STD's, Tuberculosis, VREF, Other Psych: No: Addictions, Anxiety, Bipolar, Depression, Panic, Psychosis, Schizophrenia, Other Musculoskeletal: No: Bursitis, Chronic low back pain, Hemiparesis, Hemiplegia, Osteoarthritis, Paraplegia, Other Rheumatology: No: Fibromyalgia, Gout, Lupus, Rheumatoid Arthritis, Sarcoidosis, Vasculitis, Other ENT: No: Allergic Rhinitis, Sinusitis, Other Endocrine: No: [place]'s Disease, [place]'s Disease, Diabetes Insipidus, Diabetes Mellitus, Hyperparathyroidism, Hyperthyroidism, Hypothyroidism, Osteopenia, SIADH, Other Dermatology: No: Basal Cell, Cellulitis, Eczema, Melanoma, Psoriasis, Squamous Cell, Other - Past Surgical History Past Surgical History: Yes: Hernia Repair, Hysterectomy, Permanent Pacemaker - Alcohol/Substance Use Hx Alcohol Use: No - Smoking History Smoking history: Never smoked Have you smoked in the past 12 months: No Aproximately how many cigarettes per day: 0 - Social History ADL: Family Assistance History of Recent Travel: No Home Medications - Allergies Allergies/Adverse Reactions: Allergies Allergy/AdvReac Type Severity Reaction Status Date / Time house dust Allergy Verified 05/30/17 13:55 HAY FEVER Allergy Uncoded 12/26/16 10:02 NKDA Allergy Uncoded 12/26/16 10:02 - Home Medications Home Medications: Ambulatory Orders Simvastatin [Zocor] 30 mg PO DAILY 01/11/12 Amlodipine Besylate [Norvasc -] 10 mg PO DAILY 06/13/16 Aspirin [Ecotrin] 81 mg PO DAILY 06/13/16 Carvedilol [Coreg -] 25 mg PO BID 12/26/16 Quinapril HCl [Accupril -] 40 mg PO DAILY 12/26/16 Omeprazole 20 mg PO DAILY 05/30/17 Docusate Sodium [Colace -] 100 mg PO TID PRN #21 capsule 06/02/17 Hydroxyzine HCl 10 mg PO DAILY 08/11/17 Methenamine Hippurate [Hiprex [Nf] -] 1 gm PO BID 08/11/17 Polyethylene Glycol 3350 [Miralax (For Daily Use) -] 17 gm PO BID PRN 08/11/17 Tamsulosin HCl [Flomax] 0.4 mg PO DAILY 08/11/17 Family Disease History - Family Disease History Family History: Unremarkable Review of Systems - Review of Systems Constitutional: reports: No Symptoms Eyes: reports: No Symptoms HENT: reports: No Symptoms Neck: reports: No Symptoms Cardiovascular: reports: No Symptoms Respiratory: reports: No Symptoms Gastrointestinal: reports: Abdominal Pain, Constipation, Vomiting. denies: Diarrhea, Melena, Nausea, Vomiting Blood Genitourinary: reports: Dysuria Breasts: reports: No Symptoms Reported Musculoskeletal: reports: No Symptoms Integumentary: reports: No Symptoms Neurological: reports: Syncope. denies: Change in Speech, Confusion, Dizziness , Headache, Incoordination, Numbness, Parasthesia, Pre-Existing Deficit, Seizure , Tremors, Unsteady Gait, Weakness, Other Physical Exam Vital Signs: Vital Signs Temperature 98.0 F 08/11/17 20:24 Pulse Rate 60 08/12/17 01:39 Respiratory Rate 15 08/12/17 01:39 Blood Pressure 111/94 08/12/17 01:39 O2 Sat by Pulse Oximetry (%) 100 08/12/17 01:39 Constitutional: Yes: Well Nourished, No Distress, Calm Eyes: Yes: WNL, Conjunctiva Clear, EOM Intact HENT: Yes: WNL, Atraumatic, Normocephalic Neck: Yes: WNL, Supple, Trachea Midline Cardiovascular: Yes: WNL, Regular Rate and Rhythm. No: Gallop, Murmur, S3, S4 Respiratory: Yes: WNL, Regular, CTA Bilaterally Gastrointestinal: Yes: Normal Bowel Sounds, Soft. No: Melena, Pulsatile Mass, Rectal Bleeding, Vomiting Renal/: Yes: WNL Breast(s): Yes: WNL Musculoskeletal: Yes: WNL Extremities: Yes: WNL Edema: No Peripheral Pulses WNL: Yes Integumentary: Yes: WNL Neurological: Yes: WNL, Alert, Oriented ...Motor Strength: WNL Psychiatric: Yes: WNL, Alert, Oriented Labs: CBC, BMP 08/11/17 20:50 08/11/17 20:50 Imaging - Results X-ray: Report Reviewed (CXR clear, pacer/defib present) Cat Scan: Report Reviewed (Abd/pelvis CT= substantial stool throughout most of the colon. Colon wall thickening with adjacent edema involving the distal transverse colon and extending to the proximal sigmoid colon suggestive of stercoral colitis. No free air. No diverticulitis. No obstruction.) EKG: Report Reviewed (atrial paced at 60bpm,no ST changes) Problem List - Problems (1) Colitis Code(s): K52.9 - NONINFECTIVE GASTROENTERITIS AND COLITIS, UNSPECIFIED (2) Vaso vagal episode Code(s): R55 - SYNCOPE AND COLLAPSE (3) Cardiac pacemaker in situ Code(s): Z95.0 - PRESENCE OF CARDIAC PACEMAKER (4) Acute constipation Code(s): K59.00 - CONSTIPATION, UNSPECIFIED (5) Abdominal pain Code(s): R10.9 - UNSPECIFIED ABDOMINAL PAIN Qualifiers: Abdominal location: generalized Qualified Code(s): R10.84 - Generalized abdominal pain Assessment/Plan This is an 87 yo F w/ h/o colitis, diverticulosis, and recurrent UTIs who presented to [facility] ED w/ c/o abdominal pain, described as diffuse intermittent cramping and constipation for unknown amount of time w/ a syncopal episode x 5secs after getting up after straining on toilet, stable but transferred to [facility] for further monitoring. Syncopal episode x5 secs in the setting of straining on toilet and getting up, most likely vaso vagal vs orthostatic hypotension, least likely pacer malfunction as atrial pacing is capturing -continue to monitor -EKG (QTc 426) -consider pacer interrogation Constipation and sterocoral colitis on abd CT in the setting of intermittent abdominal pain, now relieved after enema at . - PRN enema - follow abd exam - Cont Levaquin and Flagyl - Colace standing - PRN tylenol for abdominal pain Hypotension episode in the setting of morphine most likely 2/2 to vasodilatory effects, now resolved s/p 2L NS at . - Hold any PO BP Meds for now - Gentle Hydration as needed - encourage PO intake Hyponatremia in the setting of Na- 130 and poor po intake - resuscitated with 2L NS - repeat CMP - gentle hydration if PO intake poor Dvt ppx - Heparin S.c. Dispo - Stable for transfer to floor KENDRA Montemayor- Pulm critcal care CC Time: 39 minutes
[2017-08-12 03:36] VITALS: BMI 20.4
[2017-08-12] MEDS ORDERED: ACETAMINOPHEN 1000 MG/100 ML VIAL (NON FORMULARY) IVPB ONE (03:44)
[2017-08-12 05:45] LABS: HEMOGLOBIN 11.5 GM/dL (10.7-15.3); MCH 31.4 pg (25.7-33.7); MCHC 32.9 g/dl (32.0-36.0); MEAN CELL VOLUME 95.5 fl (80-96); PLATELET COUNT 210 K/MM3 (134-434); RBC 3.67 M/mm3 (3.60-5.2); RDW 13.1 % (11.6-15.6)
--- NOTE | 2017-08-12 05:56 | HP ---
CHIEF COMPLAINT: Diarrhea PCP: Dr. Alonzo HISTORY OF PRESENT ILLNESS: The patient is an 87 yo f w/ PMH colitis, diverticulitis and multiple UTIs comes into the ED c/o 1 day hx of diffuse abdominal cramps and diarrhea. The patient's pain started this evening after dinner when she developed diffuse abdominal pain and passage of a small amount of mucus-like stool. The patient also had an episode of of LOC witnessed by her son. Per son, the patient passed out and was unconscious for approx. 5 sec. Patient did not fall and did not hit her head. Patient was transferred to ICU for further care. Patient denies fevers, chills, SOB, CP. ER course was notable for: (1) (2) (3) Recent Travel: none PAST MEDICAL HISTORY: HTN HLD Colitis Diverticulitis multiple UTI PAST SURGICAL HISTORY: Appendicitis Pacemaker Social History: Smoking: denies Alcohol: denies Drugs: denies Family History: non-contributory Allergies house dust Allergy (Verified 05/30/17 13:55) HAY FEVER Allergy (Uncoded 12/26/16 10:02) NKDA Allergy (Uncoded 12/26/16 10:02) HOME MEDICATIONS: Home Medications Medication Instructions Recorded Simvastatin [Zocor] 30 mg PO DAILY 01/11/12 Amlodipine Besylate [Norvasc -] 10 mg PO DAILY 06/13/16 Aspirin [Ecotrin] 81 mg PO DAILY 06/13/16 Carvedilol [Coreg -] 25 mg PO BID 12/26/16 Quinapril HCl [Accupril -] 40 mg PO DAILY 12/26/16 Omeprazole 20 mg PO DAILY 05/30/17 Docusate Sodium [Colace -] 100 mg PO TID PRN #21 capsule 06/02/17 Hydroxyzine HCl 10 mg PO DAILY 08/11/17 Methenamine Hippurate [Hiprex [Nf] 1 gm PO BID 08/11/17 -] Polyethylene Glycol 3350 [Miralax 17 gm PO BID PRN 08/11/17 (For Daily Use) -] Tamsulosin HCl [Flomax] 0.4 mg PO DAILY 08/11/17 REVIEW OF SYSTEMS CONSTITUTIONAL: Absent: fever, chills, diaphoresis, generalized weakness, malaise, loss of appetite, weight change HEENT: Absent: rhinorrhea, nasal congestion, throat pain, throat swelling, difficulty swallowing, mouth swelling, ear pain, eye pain, visual changes CARDIOVASCULAR: Absent: chest pain, syncope, palpitations, irregular heart rate, lightheadedness , peripheral edema RESPIRATORY: Absent: cough, shortness of breath, dyspnea with exertion, orthopnea, wheezing, stridor, hemoptysis GASTROINTESTINAL: Absent: nausea, vomiting, constipation, melena, hematochezia GENITOURINARY: Absent: dysuria, frequency, urgency, hesitancy, hematuria, flank pain, genital pain MUSCULOSKELETAL: Absent: myalgia, arthralgia, joint swelling, back pain, neck pain SKIN: Absent: rash, itching, pallor HEMATOLOGIC/IMMUNOLOGIC: Absent: easy bleeding, easy bruising, lymphadenopathy, frequent infections ENDOCRINE: Absent: unexplained weight gain, unexplained weight loss, heat intolerance, cold intolerance NEUROLOGIC: Absent: headache, focal weakness or paresthesias, dizziness, unsteady gait, seizure, mental status changes, bladder or bowel incontinence PSYCHIATRIC: Absent: anxiety, depression, suicidal or homicidal ideation, hallucinations. PHYSICAL EXAMINATION Vital Signs - 24 hr 08/11/17 08/11/17 08/12/17 20:24 21:15 00:25 Temperature 98.0 F Pulse Rate 62 Pulse Rate [ 62 60 Apical] Respiratory 18 18 20 Rate Blood Pressure 100/57 Blood Pressure 111/52 92/48 [Right Arm] O2 Sat by Pulse 100 98 100 Oximetry (%) 08/12/17 08/12/17 08/12/17 01:39 03:18 03:32 Temperature 98.2 F Pulse Rate 60 Pulse Rate [ 60 Apical] Respiratory 15 16 16 Rate Blood Pressure 116/53 Blood Pressure 111/94 [Right Arm] O2 Sat by Pulse 100 100 Oximetry (%) 08/12/17 04:00 Temperature Pulse Rate 60 Pulse Rate [ Apical] Respiratory 16 Rate Blood Pressure 122/46 Blood Pressure [Right Arm] O2 Sat by Pulse Oximetry (%) GENERAL: Awake, alert, and fully oriented, in no acute distress. HEAD: Normal with no signs of trauma. EYES: Pupils equal, round and reactive to light, extraocular movements intact, sclera anicteric, conjunctiva clear. No lid lag. EARS, NOSE, THROAT: Ears normal, nares patent, oropharynx clear without exudates. Moist mucous membranes. NECK: Normal range of motion, supple without lymphadenopathy, JVD, or masses. LUNGS: Breath sounds equal, clear to auscultation bilaterally. No wheezes, and no crackles. No accessory muscle use. HEART: Regular rate and rhythm, normal S1 and S2 without murmur, rub or gallop. ABDOMEN: Soft, not distended, tenderness to palpation over the entire abdomen. hyperactive bowel sounds, no guarding, no rebound, no masses. No hepatomegaly or splenomegaly. LOWER EXTREMITIES: 2+ pulses, warm, well-perfused. No calf tenderness. No peripheral edema. NEUROLOGICAL: Cranial nerves II-X intact. Normal speech. SKIN: Warm, dry, normal turgor, no rashes or lesions noted, normal capillary refill. Laboratory Results - last 24 hr 08/11/17 08/11/17 08/11/17 00:35 20:50 20:50 WBC 4.9 RBC 3.64 Hgb 11.8 D Hct 34.0 MCV 93.4 MCH 32.3 MCHC 34.6 RDW 12.5 Plt Count 229 MPV 7.9 Neutrophils % 60.4 Lymphocytes % 31.3 Monocytes % 4.6 Eosinophils % 3.0 Basophils % 0.7 Sodium 130 L Potassium 4.2 Chloride 100 Carbon Dioxide 23 Anion Gap 7 L BUN 19 H D Creatinine 0.9 D Creat Clearance w eGFR 58.95 Random Glucose 129 H D Lactic Acid Calcium 9.5 Total Bilirubin 0.6 D AST 20 ALT 15 Alkaline Phosphatase 43 D Total Protein 6.4 D Albumin 3.6 D Total Amylase 206 H Lipase 366 Urine Color Yellow Urine Appearance Clear Urine pH 6.0 Ur Specific [place] 1.015 Urine Protein 2+ H D Urine Glucose (UA) Negative Urine Ketones Negative Urine Blood Negative Urine Nitrite Negative Urine Bilirubin Negative Urine Urobilinogen 0.2 Ur Leukocyte Esterase Trace H D Urine RBC 0-3 Urine WBC 50-80 Ur Epithelial Cells 0-3 08/12/17 00:54 WBC RBC Hgb Hct MCV MCH MCHC RDW Plt Count MPV Neutrophils % Lymphocytes % Monocytes % Eosinophils % Basophils % Sodium Potassium Chloride Carbon Dioxide Anion Gap BUN Creatinine Creat Clearance w eGFR Random Glucose Lactic Acid 1.7 Calcium Total Bilirubin AST ALT Alkaline Phosphatase Total Protein Albumin Total Amylase Lipase Urine Color Urine Appearance Urine pH Ur Specific [place] Urine Protein Urine Glucose (UA) Urine Ketones Urine Blood Urine Nitrite Urine Bilirubin Urine Urobilinogen Ur Leukocyte Esterase Urine RBC Urine WBC Ur Epithelial Cells ASSESSMENT/PLAN: The patient is an 87 yo f w/ PMH colitis, diverticulitis & multiple UTIs who is transferred to ICU from [facility] for colitis. # Sterocoral Colitis -Administered Fleet Enema at [facility] -Serial Abd. Exams -LevaqUin ( IF QtC is ok) and Flagy -Ucx pending -Per nurse, patient had large BM on arrival # Hypotension -Patient now normotensive -Hold home BP Meds -Gentle IVF # Dvt ppx -Heparin 5000 q8 #Dispo -admit to med-surg Visit type - Emergency Visit Emergency Visit: Yes ED Registration Date: 08/12/17 Care time: The patient presented to the Emergency Department on the above date and was hospitalized for further evaluation of their emergent condition. - New Patient This patient is new to me today: Yes Date on this admission: 08/12/17 - Critical Care Critical Care patient: Yes Total Critical Care Time (in minutes): 45 Critical Care Statement: The care of this patient involved high complexity decision making to prevent further life threatening deterioration of the patient 's condition and/or to evaluate & treat vital organ system(s) failure or risk of failure. Hospitalist Screening - Colonoscopy Questionnaire Colonoscopy Questionnaire: Colonoscopy Questionnaire - Patient: 50 - 75 years old and never had a screening colonoscopy: Unknown History of colon or rectal polyps, or CA: Unknown History of IBD, Crohn's disease or UC: Unknown History of abdominal radiation therapy as a child: Unknown - Relative: 1 with colon or rectal CA, or polyps at age 60 or younger: Unknown Colon or rectal CA diagnosed at age 45 or younger: Unknown Multiple relatives with colon or rectal CA: Unknown - Outcome: Screening Result: Negative Screen
[2017-08-12] MEDS: DOCUSATE SODIUM 100 MG CAPSULE (FP) PO SCH ×3 (06:06→21:15)
[2017-08-12] MEDS: HEPARIN NA (PORCINE) 5,000 UNITS/ML 1ML VIAL SQ SCH ×3 (06:06→21:15)
[2017-08-12 06:16] LABS: ALBUMIN 2.8 g/dl (3.4-5.0); ANION GAP 9 (8-16); BLOOD UREA NITROGEN 21 mg/dL (7-18); CALCIUM 8.5 mg/dL (8.5-10.1); CHLORIDE 102 mmol/L (98-107); CO2 24 mmol/L (21-32); CREATININE 0.6 mg/dL (0.55-1.02); GLUCOSE,RANDOM 140 mg/dL (74-106); POTASSIUM 4.9 mmol/L (3.5-5.1); SGOT/AST 18 U/L (15-37); SGPT/ALT 20 U/L (12-78); SODIUM 135 mmol/L (136-145)
[2017-08-12 06:18] LABS: ALK PHOS 40 U/L (45-117); BILIRUBIN,TOTAL 0.9 mg/dL (0.2-1.0); TOT PROT 5.8 g/dl (6.4-8.2)
--- NOTE | 2017-08-12 06:30 | PN ---
Progress Note, Physician History of Present Illness: The patient is a 87 year old female, with a significant past medical history of colitis, diverticulitis, recurrent UTI (followed by urology), appendectomy, asthma, HTN, HLD, pacemaker use, who was BIB[facility] to the [facility] with diffuse abdominal cramps worsened after eating, vomiting, and small loose stool with mucus, which are symptoms similar to her prior colitis. As per patients son, she had dizziness and pre-syncope after standing up from the toilet passing a BM , but she did not hit her head. She reports to have seen her urologist (Dr. Martin) recently and having treatment for a UTI with 5 days Bactrim, but the infection did not clear and she was placed on Atarax and another medication which she cannot remember, but she has not been taking it. Her PCP is Haroon Alonzo. Her GI doctor is Dr. Frias. ED COURSE Given Tylenol and Zofran. Amylase elevated. Hyponatremia, given NS. Given Levaquin + Flagyl. Patient hypotensive, 2nd liter NS hung. EKG showed atrial pacer. Patient admitted to ICU. Fleets enema yielded 2 normal BMs, no blood or mucus. Abdominal CT showed substantial stool, e/o changes suggesting stercoral colitis. Also distended urinary bladder with mild wall thickening. 24 HOUR EVENTS No significant events. SUBJECTIVE Patient notes continued soreness, loose bowel movements without blood. Little urine output per her report but she has not been drinking much. She also notes not having an appetite for food, but requests broth and other liquid. 24 HOUR INTAKE & OUTPUT In: 1500c Out: 125cc +diaper void Net: 1375cc BM: None reported - Current Medication List Current Medications: Active Medications Aspirin (Ecotrin -) 81 mg PO DAILY [facility] Chlorhexidine Gluconate (Hibiclens For Decolonization -) 1 applic TP HS [facility] Docusate Sodium (Colace -) 100 mg PO TID [facility] Last Admin: 08/12/17 06:06 Dose: 100 mg Heparin Sodium (Porcine) (Heparin -) 5,000 unit SQ TID [facility] Last Admin: 08/12/17 06:06 Dose: 5,000 unit Hydroxyzine HCl (Atarax -) 10 mg PO DAILY [facility] Metronidazole (Flagyl 500mg Premixed Ivpb -) 500 mg in 100 mls @ 100 mls/hr IVPB Q8H-IV NERI Mupirocin (Bactroban Ointment (For Decolonization) -) 1 applic NS BID [facility] Stop: 08/17/17 09:59 Non-Formulary Medication (Simvastatin [Zocor]) 30 mg PO DAILY [facility] Pantoprazole Sodium (Protonix -) 20 mg PO DAILY [facility] - Objective Vital Signs: Vital Signs Temperature 98.2 F 08/12/17 03:32 Pulse Rate 60 08/12/17 04:00 Respiratory Rate 16 08/12/17 04:00 Blood Pressure 122/46 08/12/17 04:00 O2 Sat by Pulse Oximetry (%) 100 08/12/17 03:18 Constitutional: Yes: Well Nourished, No Distress, Calm, Other (Very pleasant and well-appearing elderly woman who appears younger than her stated age, A/Ox4 , conversive, answering questions appropriately, having coffee, has not touched her scrambled eggs or [place] waffle) Eyes: Yes: WNL, Conjunctiva Clear, EOM Intact HENT: Yes: WNL, Atraumatic, Normocephalic Neck: Yes: WNL, Supple, Trachea Midline Cardiovascular: Yes: WNL, Regular Rate and Rhythm Respiratory: Yes: WNL, Regular, CTA Bilaterally Gastrointestinal: Yes: WNL, Normal Bowel Sounds, Soft, Other (LUQ and umbilical mild ttp without guarding, rebound, or splinting, no midline pulsatile masses) Extremities: Yes: WNL. No: Calf Tenderness, Cold, Cyanosis, Delayed Capillary Refill, Erythema, Pallor Edema: No Peripheral Pulses: Left Doralis Pedis: 2+, Right Dorsalis Pedis: 2+ Integumentary: Yes: WNL. No: Bruising, Erythema Neurological: Yes: WNL, Alert, Oriented ...Motor Strength: WNL Psychiatric: Yes: WNL, Alert, Oriented Labs: CBC, BMP 08/12/17 05:00 08/12/17 05:00 - ....Imaging Chest X-ray: Report Reviewed, Image Reviewed, Other (nothing acute) Assessment/Plan This is an 87 yo F w/ h/o colitis, diverticulosis, and recurrent UTIs who presented to [facility] ED w/ c/o abdominal pain, described as diffuse intermittent cramping and constipation for unknown amount of time w/ a syncopal episode x 5secs after getting up after straining on toilet, stable but transferred to [facility] for further monitoring. NEURO #Presyncopal episode x5 secs in the setting of straining on toilet and getting up, most likely vaso vagal vs orthostatic hypotension, least likely pacer malfunction as atrial pacing is capturing -Continue to monitor -EKG (QTc 426) -Consider pacer interrogation GI #Constipation and sterocoral colitis on abdominal CT in the setting of intermittent abdominal pain, now relieved after enema at . -PRN enema -Serial abdominal exam -Continue Flagyl -Colace standing -PRN Tylenol for abdominal pain CARDS #Hypotension episode in the setting of morphine most likely 2/2 to vasodilatory effects, now resolved s/p 2L NS at . - Hold any PO BP Meds for now - Gentle Hydration as needed - encourage PO intake FEN Hyponatremia in the setting of Na- 130 and poor po intake -Resuscitated with 2L NS -Trend CMP, Mg, phos -Gentle hydration if PO intake poor PPX DV: HSQ GI: Protonix PT: None DISPO Stable for transfer to Med/Surg
--- NOTE | 2017-08-12 08:19 | EKG ---
Test Reason : Blood Pressure : / mmHG Vent. Rate : 060 BPM Atrial Rate : 059 BPM P-R Int : 218 ms QRS Dur : 092 ms QT Int : 426 ms P-R-T Axes : -47 030 052 degrees QTc Int : 426 ms Atrial-paced rhythm with prolonged AV conduction ABNORMAL ECG WHEN COMPARED WITH ECG OF 30-MAY-2017 15:49, NO SIGNIFICANT CHANGE WAS FOUND Confirmed by MARIA ISABEL NAIR MD ([id number]) on 08/12/2017 8:19:26 AM Referred By: MD VALENTIN Confirmed By:MARIA ISABEL NAIR MD
[2017-08-12 08:45] LABS: MAGNESIUM 2.4 mg/dL (1.8-2.4); PHOSPHOROUS 2.8 mg/dL (2.5-4.9)
--- NOTE | 2017-08-12 08:45 | MSN ---
Progress Note (SOAP) - Subjective Chief Complaint: "Stomach pain and constipation" History of Present Illness: 87 y/o female with past medical history of colitis, diverticulitis and frequent UTIs presented to the ED with 1 day history of diffuse abdominal pain and constipation. Abdominal pain started after eating dinner and is described as "crampy". Patient attempted to have a bowel movement and passed a small amount of stool along with mucus. Patient experienced syncope upon arising from the toilet with loss of consciousness for 5 seconds. Patient did not hit her head and was caught by her son. - Current Medications Current Medications: Active Medications Aspirin (Ecotrin -) 81 mg PO DAILY [facility] Chlorhexidine Gluconate (Hibiclens For Decolonization -) 1 applic TP HS [facility] Docusate Sodium (Colace -) 100 mg PO TID [facility] Last Admin: 08/12/17 06:06 Dose: 100 mg Heparin Sodium (Porcine) (Heparin -) 5,000 unit SQ TID [facility] Last Admin: 08/12/17 06:06 Dose: 5,000 unit Hydroxyzine HCl (Atarax -) 10 mg PO DAILY [facility] Metronidazole (Flagyl 500mg Premixed Ivpb -) 500 mg in 100 mls @ 100 mls/hr IVPB Q8H-IV [facility] Mupirocin (Bactroban Ointment (For Decolonization) -) 1 applic NS BID [facility] Stop: 08/17/17 09:59 Non-Formulary Medication (Simvastatin [Zocor]) 30 mg PO DAILY [facility] Pantoprazole Sodium (Protonix -) 20 mg PO DAILY [facility] Polyethylene Glycol (Miralax (For Daily Use) -) 17 gm PO BID [facility] Psyllium Hydrophilic Mucilloid (Metamucil (Sugar-Free) -) 5.85 gm PO BID [facility] - Objective Vital Signs: Vital Signs Temperature 98.1 F 08/12/17 06:00 Pulse Rate 60 08/12/17 06:00 Respiratory Rate 16 08/12/17 06:00 Blood Pressure 135/75 08/12/17 06:00 O2 Sat by Pulse Oximetry (%) 100 08/12/17 03:18 Constitutional: Yes: Well Nourished, No Distress, Calm Eyes: Yes: Conjunctiva Clear, EOM Intact HENT: Yes: Atraumatic, Normocephalic Cardiovascular: Yes: Regular Rate and Rhythm Respiratory: Yes: Regular, CTA Bilaterally Gastrointestinal: Yes: Soft, Hyperactive Bowel Sounds, Tenderness Extremities: Yes: WNL Peripheral Pulses WNL: Yes Peripheral Pulses: Left Radial: 2+, Right Radial: 2+, Left Doralis Pedis: 2+, Right Dorsalis Pedis: 2+ Edema: No Edema: LUE: 2+, RUE: 2+, LLE: 2+, RLE: 2+ Labs Lab Results: CBC, BMP 08/12/17 05:00 08/12/17 05:00 Assessment/Plan 1) Colitis * Fleet enema given in ED and had BM * Given flagyl * Serial abdominal exams * Urine culture pending * Dr. Frias consulted 2) Syncope * Was hypotensive at arrival, now normalized * ECG normal * Order carotid doppler 3)Possible UTI * Follow urine culture
[2017-08-12] MEDS ORDERED: PT OWN MED DRAWER 7, Y5N ONE (09:02)
[2017-08-12] MEDS ORDERED: MUPIROCIN 2% TOPICAL OINTMENT FOR DECOLONIZATION NS SCH (10:00)
[2017-08-12] MEDS ORDERED: CARVEDILOL 12.5 MG TABLET (FP) PO SCH ×2 (10:00)
[2017-08-12] MEDS ORDERED: amLODIPine BESYLATE 10 MG TABLET (FP) PO SCH ×2 (10:00)
[2017-08-12] MEDS ORDERED: PATIENT'S OWN MEDICATION (NON-FORMULARY) (Methenamine Hippurate 1 GM) PO SCH (10:00)
[2017-08-12] MEDS ORDERED: SIMVASTATIN PO SCH (10:00)
[2017-08-12] MEDS ORDERED: POLYETHYLENE GLYCOL 3350 119 GM BTL PO SCH ×2 (10:00→18:00)
[2017-08-12] MEDS ORDERED: QUINAPRIL HCL 40 MG TABLET (FP) PO SCH (10:00)
[2017-08-12] MEDS ORDERED: TAMSULOSIN HCL 0.4 MG CAP.ER.24H (FP) PO SCH (10:00)
[2017-08-12] MEDS: ASPIRIN COATED 81 MG TABLET.EC PO SCH (10:10)
[2017-08-12] MEDS: PANTOPRAZOLE 20 MG TABLET (FP) PO SCH (10:10)
[2017-08-12] MEDS: PSYLLIUM 5.85 GM PACKET PO SCH ×2 (10:11→21:16)
[2017-08-12] MEDS: hydrOXYzine HCL 10 MG TABLET PO SCH (13:20)
--- NOTE | 2017-08-12 13:22 | CON.GI ---
Consult Consult Specialty:: GI Reason for Consultation:: Constipation - History of Present Illness History of Present Illness: The patient is know to GI service from prior admissions and OP follow ups. Chart reviewed. PER H&P: The patient is an 87 yo f w/ PMH colitis, diverticulitis and multiple UTIs comes into the ED c/o 1 day hx of diffuse abdominal cramps and diarrhea. The patient's pain started this evening after dinner when she developed diffuse abdominal pain and passage of a small amount of mucus-like stool. The patient also had an episode of of LOC witnessed by her son. Per son, the patient passed out and was unconscious for approx. 5 sec. Patient did not fall and did not hit her head. Patient was transferred to ICU for further care. Patient denies fevers, chills, SOB, CP. At the time of this encounter, the patient appears comfortable. Reports having 3 large bowel movements after receiving an enema. Reports residual generalized abdominal tenderness. Denies fever, chills, nausea, vomiting, hematemesis, dysphagia, odynophagia, chronic acid reflux, jaundice. Denies melena, hematochezia, weight loss. Reports taking miralax at home, however suspects she wasn't taking enough. During OP follow up we discussed taking 17 g/glass of water bid-tid as need to maintain 1bm/day - Past Medical History STORY EDITOR: No: Alzheimer's, CVA, Dementia, Migraine, Multiple Sclerosis, Peripheral Neuropathy, Parkinson's, Seizure, Syncope, TIA, Vertigo, Other Cardio/Vascular: Yes: HTN, Hyperlipdemia Pulmonary: No: Asthma, Bronchitis, Cancer, COPD, O2 Dependent, Pneumonia, Previously Intubated, Pulmonary Embolus, Pulmonary Fibrosis, Sleep Apnea, Other Gastrointestinal: Yes: Constipation, Diverticulitis, Diverticulosis, Hiatal Hernia Hepatobiliary: No: Cirrhosis, Cholelithiasis, Cholecystitis, Choledocholithiasis , Hepatitis A, Hepatitis B, Hepatitis C, Other Renal/: Yes: UTI Infectious Disease: No: AIDS, C-Diff, Herpes Zoster, HIV, MRSA, STD's, Tuberculosis, VREF, Other Psych: No: Addictions, Anxiety, Bipolar, Depression, Panic, Psychosis, Schizophrenia, Other Musculoskeletal: No: Bursitis, Chronic low back pain, Hemiparesis, Hemiplegia, Osteoarthritis, Paraplegia, Other Rheumatology: No: Fibromyalgia, Gout, Lupus, Rheumatoid Arthritis, Sarcoidosis, Vasculitis, Other ENT: No: Allergic Rhinitis, Sinusitis, Other Endocrine: No: Stanley's Disease, Elysian's Disease, Diabetes Insipidus, Diabetes Mellitus, Hyperparathyroidism, Hyperthyroidism, Hypothyroidism, Osteopenia, SIADH, Other Dermatology: No: Basal Cell, Cellulitis, Eczema, Melanoma, Psoriasis, Squamous Cell, Other - Past Surgical History Past Surgical History: Yes: Hernia Repair, Hysterectomy, Permanent Pacemaker - Alcohol/Substance Use Hx Alcohol Use: No - Smoking History Smoking history: Never smoked Have you smoked in the past 12 months: No Aproximately how many cigarettes per day: 0 - Social History ADL: Family Assistance History of Recent Travel: No Home Medications - Allergies Allergies/Adverse Reactions: Allergies Allergy/AdvReac Type Severity Reaction Status Date / Time house dust Allergy Verified 05/30/17 13:55 HAY FEVER Allergy Uncoded 12/26/16 10:02 NKDA Allergy Uncoded 12/26/16 10:02 - Home Medications Home Medications: Ambulatory Orders Simvastatin [Zocor] 30 mg PO DAILY 01/11/12 Amlodipine Besylate [Norvasc -] 10 mg PO DAILY 06/13/16 Aspirin [Ecotrin] 81 mg PO DAILY 06/13/16 Carvedilol [Coreg -] 25 mg PO BID 12/26/16 Quinapril HCl [Accupril -] 40 mg PO DAILY 12/26/16 Omeprazole 20 mg PO DAILY 05/30/17 Docusate Sodium [Colace -] 100 mg PO TID PRN #21 capsule 06/02/17 Hydroxyzine HCl 10 mg PO DAILY 08/11/17 Methenamine Hippurate [Hiprex [Nf] -] 1 gm PO BID 08/11/17 Polyethylene Glycol 3350 [Miralax (For Daily Use) -] 17 gm PO BID PRN 08/11/17 Tamsulosin HCl [Flomax] 0.4 mg PO DAILY 08/11/17 Family Disease History - Family Disease History Family History: Unremarkable Review of Systems Findings/Remarks: as per HPI, H&P Physical Exam-GI Vital Signs: Vital Signs Temperature 97.8 F 08/12/17 10:37 Pulse Rate 60 08/12/17 10:37 Respiratory Rate 20 08/12/17 10:37 Blood Pressure 108/53 08/12/17 10:37 O2 Sat by Pulse Oximetry (%) 100 08/12/17 10:00 Constitutional: Yes: Well Nourished, No Distress, Calm Eyes: Yes: Conjunctiva Clear HENT: Yes: Atraumatic Neck: Yes: Supple Cardiovascular: Yes: Regular Rate and Rhythm Respiratory: Yes: Regular ...Auscultate: Yes: Normoactive Bowel Sounds ...Palpate: Yes: Guarding, Tenderness. No: Firm/Rigid, Tenderness, Rebound Neurological: Yes: Alert, Oriented Labs: CBC, BMP 08/12/17 05:00 08/12/17 05:00 CBCD WBC 9.0 K/mm3 (4.0-10.0) D 08/12/17 05:00 RBC 3.67 M/mm3 (3.60-5.2) 08/12/17 05:00 Hgb 11.5 GM/dL (10.7-15.3) D 08/12/17 05:00 Hct 35.0 % (32.4-45.2) 08/12/17 05:00 MCV 95.5 fl (80-96) 08/12/17 05:00 MCHC 32.9 g/dl (32.0-36.0) 08/12/17 05:00 RDW 13.1 % (11.6-15.6) 08/12/17 05:00 Plt Count 210 K/MM3 (134-434) 08/12/17 05:00 MPV 8.0 fl (7.5-11.1) 08/12/17 05:00 CMP Sodium 135 mmol/L (136-145) L 08/12/17 05:00 Potassium 4.9 mmol/L (3.5-5.1) 08/12/17 05:00 Chloride 102 mmol/L (98-107) 08/12/17 05:00 Carbon Dioxide 24 mmol/L (21-32) 08/12/17 05:00 Anion Gap 9 (8-16) 08/12/17 05:00 BUN 21 mg/dL (7-18) H 08/12/17 05:00 Creatinine 0.6 mg/dL (0.55-1.02) 08/12/17 05:00 Creat Clearance w eGFR > 60 (>60) 08/12/17 05:00 Calcium 8.5 mg/dL (8.5-10.1) 08/12/17 05:00 Total Bilirubin 0.9 mg/dL (0.2-1.0) D 08/12/17 05:00 AST 18 U/L (15-37) 08/12/17 05:00 ALT 20 U/L (12-78) 08/12/17 05:00 Alkaline Phosphatase 40 U/L (45-117) L 08/12/17 05:00 Total Protein 5.8 g/dl (6.4-8.2) L 08/12/17 05:00 Albumin 2.8 g/dl (3.4-5.0) L 08/12/17 05:00 Abnormal Lab Results 08/11/17 08/11/17 08/12/17 00:35 20:50 05:00 Sodium 130 L 135 L Anion Gap 7 L BUN 19 H D 21 H Random Glucose 129 H D 140 H Alkaline Phosphatase 40 L Total Protein 5.8 L Albumin 2.8 L Total Amylase 206 H Urine Protein 2+ H D Ur Leukocyte Esterase Trace H D Imaging - Results Cat Scan: Report Reviewed Problem List - Problems (1) Stercoral ulcer of large intestine Code(s): K63.3 - ULCER OF INTESTINE (2) Acute constipation Code(s): K59.00 - CONSTIPATION, UNSPECIFIED (3) Colitis Code(s): K52.9 - NONINFECTIVE GASTROENTERITIS AND COLITIS, UNSPECIFIED Assessment/Plan symptomatic constipation with resultant stercoral/ischemic colitis. shear tender , non-toxic appearing Daily CBC, CMP IVF/PO hydration No need for Abx Miralax qid Close observation discussed with the patient
[2017-08-12] MEDS: ACETAMINOPHEN 325 MG TABLET (FP) PO PRN ×2 (13:26→21:39)
--- NOTE | 2017-08-12 16:55 | PN ---
Physical Exam: SUBJECTIVE: Patient seen and examined No acute events overnight. Pt reports that her abdominal pain is decreasing. She denies lightheadedness. She denies SOB, chest pain. OBJECTIVE: Vital Signs Period Temp Pulse Resp BP Sys/[place] Pulse Ox Last 24 Hr 97.8 F-99.1 F 60-62 15-20 92-135/44-94 98-100 GENERAL: elderly female, awake, alert, and fully oriented, in no acute distress. HEENT: NC, AT LUNGS: Breath sounds equal, clear to auscultation bilaterally, no wheezes, no crackles, no accessory muscle use. HEART: Regular rate and rhythm, S1, S2 without murmur, rub or gallop. ABDOMEN: mildly distended, soft, minimally tender to palpation, no masses EXTREMITIES: 2+ pulses, warm, well-perfused, no edema. NEUROLOGICAL: Cranial nerves II through XII grossly intact. Normal speech, gait not observed. Laboratory Results - last 24 hr 08/11/17 08/11/17 08/11/17 00:35 20:50 20:50 WBC 4.9 RBC 3.64 Hgb 11.8 D Hct 34.0 MCV 93.4 MCH 32.3 MCHC 34.6 RDW 12.5 Plt Count 229 MPV 7.9 Neutrophils % 60.4 Lymphocytes % 31.3 Monocytes % 4.6 Eosinophils % 3.0 Basophils % 0.7 Sodium 130 L Potassium 4.2 Chloride 100 Carbon Dioxide 23 Anion Gap 7 L BUN 19 H D Creatinine 0.9 D Creat Clearance w eGFR 58.95 Random Glucose 129 H D Lactic Acid Calcium 9.5 Phosphorus Magnesium Total Bilirubin 0.6 D AST 20 ALT 15 Alkaline Phosphatase 43 D Total Protein 6.4 D Albumin 3.6 D Total Amylase 206 H Lipase 366 Urine Color Yellow Urine Appearance Clear Urine pH 6.0 Ur Specific [place] 1.015 Urine Protein 2+ H D Urine Glucose (UA) Negative Urine Ketones Negative Urine Blood Negative Urine Nitrite Negative Urine Bilirubin Negative Urine Urobilinogen 0.2 Ur Leukocyte Esterase Trace H D Urine RBC 0-3 Urine WBC 50-80 Ur Epithelial Cells 0-3 08/12/17 08/12/17 08/12/17 00:54 05:00 05:00 WBC 9.0 D RBC 3.67 Hgb 11.5 D Hct 35.0 MCV 95.5 MCH 31.4 MCHC 32.9 RDW 13.1 Plt Count 210 MPV 8.0 Neutrophils % Lymphocytes % Monocytes % Eosinophils % Basophils % Sodium 135 L Potassium 4.9 Chloride 102 Carbon Dioxide 24 Anion Gap 9 BUN 21 H Creatinine 0.6 Creat Clearance w eGFR > 60 Random Glucose 140 H Lactic Acid 1.7 Calcium 8.5 Phosphorus 2.8 Magnesium 2.4 Total Bilirubin 0.9 D AST 18 ALT 20 Alkaline Phosphatase 40 L Total Protein 5.8 L Albumin 2.8 L Total Amylase Lipase Urine Color Urine Appearance Urine pH Ur Specific [place] Urine Protein Urine Glucose (UA) Urine Ketones Urine Blood Urine Nitrite Urine Bilirubin Urine Urobilinogen Ur Leukocyte Esterase Urine RBC Urine WBC Ur Epithelial Cells 08/12/17 05:30 WBC RBC Hgb Hct MCV MCH MCHC RDW Plt Count MPV Neutrophils % Lymphocytes % Monocytes % Eosinophils % Basophils % Sodium Potassium Chloride Carbon Dioxide Anion Gap BUN Creatinine Creat Clearance w eGFR Random Glucose Lactic Acid Calcium Phosphorus Cancelled Magnesium Cancelled Total Bilirubin AST ALT Alkaline Phosphatase Total Protein Albumin Total Amylase Lipase Urine Color Urine Appearance Urine pH Ur Specific [place] Urine Protein Urine Glucose (UA) Urine Ketones Urine Blood Urine Nitrite Urine Bilirubin Urine Urobilinogen Ur Leukocyte Esterase Urine RBC Urine WBC Ur Epithelial Cells Active Medications Generic Name Dose Route Start Last Admin Trade Name Freq PRN Reason Stop Dose Admin Acetaminophen 650 mg 08/12/17 12:47 08/12/17 13:26 Tylenol - PO 650 mg Q4H PRN Administration pain 1-10 Aspirin 81 mg 08/12/17 10:00 08/12/17 10:10 Ecotrin - PO 81 mg DAILY [facility] Administration Chlorhexidine Gluconate 1 applic 08/12/17 22:00 Hibiclens For Decolonization - TP HS [facility] Docusate Sodium 100 mg 08/12/17 06:00 08/12/17 13:26 Colace - PO 100 mg TID [facility] Administration Heparin Sodium (Porcine) 5,000 unit 08/12/17 06:00 08/12/17 13:26 Heparin - SQ 5,000 unit TID [facility] Administration Hydroxyzine HCl 10 mg 08/12/17 10:00 08/12/17 13:20 Atarax - PO Not Given DAILY [facility] Levofloxacin 500 mg in 100 mls @ 100 mls/hr 08/12/17 23:00 Levaquin 500 Mg Premixed Ivpb - IVPB DAILY [facility] Mupirocin 1 applic 08/12/17 10:00 08/12/17 10:10 Bactroban Ointment (For Decolonization) - NS 08/17/17 09:59 1 applic BID [facility] Administration Pantoprazole Sodium 20 mg 08/12/17 10:00 08/12/17 10:10 Protonix - PO 20 mg DAILY [facility] Administration Polyethylene Glycol 17 gm 08/12/17 22:00 Miralax (For Daily Use) - PO BID [facility] Psyllium Hydrophilic Mucilloid 5.85 gm 08/12/17 10:00 08/12/17 10:11 Metamucil (Sugar-Free) - PO Not Given BID [facility] ASSESSMENT/PLAN: 87F w/ hx of colitis, diverticulitis, multiple UTIs, HTN, and HLD who presented with abdominal pain, diarrhea and syncope, found to have stercoral colitis. #abdominal pain -likely 2/2 stercoral colitis -GI on board, recs appreciated. no abx necessary, so flagyl d/c'd -miralax, metamucil, and colace #syncope -likely vasovagal as pt lost consciousness on toilet #HTN -home meds held as pt is normotensive #HLD -continue home simvastatin #FEN/ppx -po fluids -electrolytes wnl -clear liquid diet -protonix -heparin 5000U TID Case discussed with attending, Dr. Ahn. -Christopher Le MD PGY1 Visit type - Emergency Visit Emergency Visit: Yes ED Registration Date: 08/12/17 Care time: The patient presented to the Emergency Department on the above date and was hospitalized for further evaluation of their emergent condition. - New Patient This patient is new to me today: Yes Date on this admission: 08/12/17 - Critical Care Critical Care patient: No
--- NOTE | 2017-08-12 17:50 | PN ---
Teaching Attending Note Name of Resident: Christopher Le ATTENDING PHYSICIAN STATEMENT I saw and evaluated the patient. I reviewed the resident's note and discussed the case with the resident. I agree with the resident's findings and plan as documented. SUBJECTIVE:improved. states she had 1 small hard BM yesterday but then previous one was several days ago. also c/o dysuria and urinary frequency. states now she feels improved. denies CP, SOB, fver, chills, N/V/D, LOC or dizzyness had similar episode several months ago. had colonsocpy part of general screening years ago. had polyp but benign per pt OBJECTIVE: Last Vital Signs Temp Pulse Resp BP Pulse Ox 99.1 F 61 20 95/44 100 08/12/17 15:32 08/12/17 15:32 08/12/17 10:37 08/12/17 15:32 08/12/17 10:00 General NAD CV S1 S2 RRR no murmur/rub/gallop Lungs CTA B/L no wheezing/rales/rhonchi Abdomen soft +distended. non tender normoactive BS Extremities no pedal edema ASSESSMENT AND PLAN: 87yo F wtih PMH diverticulitis presented to the ER with abdominal pain and found to have sterocolitis 1. Sterocolitis- multiple BM since admission. no indication for abx for sterocolitis. advance diet to clears. will d/c flagyl. start bulk forming laxatives and stool softenrs. Consult GI as may require colonosocpy to r/o obstruction. 2. Syncope- vasovagal during BM. no repeat episodes. other than dizzyness had no symptoms. no events on monitor 3. Hypotnesion- resolved. 4. UTI- on levaquin. will cont for now. F/u Cx 5. DVT ppx- hep sq 6. stable for transfer to medical floors The care of this patient involved high complexity decision making to prevent further life threatening deterioration of the patient's condition and/or to evaluate & treat vital organ system(s) failure or risk of failure. 38 minutes
[2017-08-12] MEDS: POLYETHYLENE GLYCOL 3350 119 GM BTL PO SCH (21:16)
[2017-08-12] MEDS ORDERED: CHLORHEXIDINE GLUCONATE 4% CLEANSER FOR DECOLONIZATION TP SCH (22:00)
[2017-08-13] MEDS: HEPARIN NA (PORCINE) 5,000 UNITS/ML 1ML VIAL SQ SCH ×3 (06:18→22:42)
[2017-08-13] MEDS: DOCUSATE SODIUM 100 MG CAPSULE (FP) PO SCH ×3 (06:18→21:45)
[2017-08-13 07:15] LABS: BASO % 0.2 % (0-2.0); EOS % 0.1 % (0-4.5); HEMATOCRIT 29.5 % (32.4-45.2); HEMOGLOBIN 9.6 GM/dL (10.7-15.3); LYMPH % 10.4 % (8-40); MCH 31.2 pg (25.7-33.7); MCHC 32.6 g/dl (32.0-36.0); MEAN CELL VOLUME 95.6 fl (80-96); MONO % 7.1 % (3.8-10.2); NEUT % 82.2 % (42.8-82.8); PLATELET COUNT 190 K/MM3 (134-434); RBC 3.09 M/mm3 (3.60-5.2); RDW 13.1 % (11.6-15.6)
[2017-08-13 07:43] LABS: ANION GAP 7 (8-16); BLOOD UREA NITROGEN 30 mg/dL (7-18); CALCIUM 7.7 mg/dL (8.5-10.1); CHLORIDE 101 mmol/L (98-107); CO2 24 mmol/L (21-32); GLUCOSE,RANDOM 100 mg/dL (74-106); POTASSIUM 4.4 mmol/L (3.5-5.1); SODIUM 132 mmol/L (136-145)
--- NOTE | 2017-08-13 08:17 | PN ---
<Christopher Le - Last Filed: 08/13/17 14:13> Physical Exam: SUBJECTIVE: Patient seen and examined No acute events overnight. Pt reports having 2 BMs with mucous, increased abdominal pain, and increased nausea. OBJECTIVE: Vital Signs Period Temp Pulse Resp BP Sys/[place] Pulse Ox Last 24 Hr 97.8 F-100 F 60-61 20-20 93-108/40-53 100-100 GENERAL: elderly female, awake, alert, and fully oriented, in no acute distress. HEENT: NC, AT LUNGS: Breath sounds equal, clear to auscultation bilaterally, no wheezes, no crackles, no accessory muscle use. HEART: Regular rate and rhythm, S1, S2 without murmur, rub or gallop. ABDOMEN: mildly distended, soft, moderately tender to palpation, no masses EXTREMITIES: 2+ pulses, warm, well-perfused, no edema. NEUROLOGICAL: Cranial nerves II through XII grossly intact. Normal speech, gait not observed. Laboratory Results - last 24 hr 08/12/17 08/12/17 08/13/17 05:00 05:30 06:40 WBC 12.0 H D RBC 3.09 L Hgb 9.6 L D Hct 29.5 L D MCV 95.6 MCH 31.2 MCHC 32.6 RDW 13.1 Plt Count 190 MPV 8.0 Neutrophils % 82.2 D Lymphocytes % 10.4 D Monocytes % 7.1 Eosinophils % 0.1 D Basophils % 0.2 Sodium 135 L Potassium 4.9 Chloride 102 Carbon Dioxide 24 Anion Gap 9 BUN 21 H Creatinine 0.6 Creat Clearance w eGFR > 60 Random Glucose 140 H Calcium 8.5 Phosphorus 2.8 Cancelled Magnesium 2.4 Cancelled Total Bilirubin 0.9 D AST 18 ALT 20 Alkaline Phosphatase 40 L Total Protein 5.8 L Albumin 2.8 L Active Medications Generic Name Dose Route Start Last Admin Trade Name Freq PRN Reason Stop Dose Admin Acetaminophen 650 mg 08/12/17 12:47 08/12/17 21:39 Tylenol - PO 650 mg Q4H PRN Administration pain 1-10 Aspirin 81 mg 08/12/17 10:00 08/12/17 10:10 Ecotrin - PO 81 mg DAILY [facility] Administration Docusate Sodium 100 mg 08/12/17 06:00 08/13/17 06:18 Colace - PO 100 mg TID [facility] Administration Heparin Sodium (Porcine) 5,000 unit 08/12/17 06:00 08/13/17 06:18 Heparin - SQ 5,000 unit TID [facility] Administration Hydroxyzine HCl 10 mg 08/12/17 10:00 08/12/17 13:20 Atarax - PO Not Given DAILY [facility] Levofloxacin 500 mg in 100 mls @ 100 mls/hr 08/12/17 23:00 08/12/17 23:07 Levaquin 500 Mg Premixed Ivpb - IVPB 100 mls/hr DAILY [facility] Administration Pantoprazole Sodium 20 mg 08/12/17 10:00 08/12/17 10:10 Protonix - PO 20 mg DAILY [facility] Administration Polyethylene Glycol 17 gm 08/12/17 22:00 08/12/17 21:16 Miralax (For Daily Use) - PO 17 grams BID [facility] Administration Psyllium Hydrophilic Mucilloid 5.85 gm 08/12/17 10:00 08/12/17 21:16 Metamucil (Sugar-Free) - PO 5.85 gm BID [facility] Administration ASSESSMENT/PLAN: 87F w/ hx of colitis, diverticulitis, multiple UTIs, HTN, and HLD who presented with abdominal pain, diarrhea and syncope, found to have stercoral colitis. #abdominal pain -worsening per pt. BM x 2 -leukocytosis of 12, continue to monitor. afebrile -likely 2/2 stercoral colitis -GI on board, recs appreciated. -miralax, metamucil, and colace -f/u bladder scan to see if pt is retaining -f/u c.diff. flagyl started for empiric coverage -changed pt from clear liquid to soft diet #syncope -likely vasovagal as pt lost consciousness on toilet -f/u pacemaker interrogation #hyponatremia -Na of 132 today, likely 2/2 volume depletion -started on NS @ 62 #anemia -f/u FOBT -f/u iron studies #HTN -home meds held as pt is normotensive #HLD -continue home simvastatin #FEN/ppx -NS @ 62 -electrolytes wnl -clear liquid diet -protonix -heparin 5000U TID #PT -f/u PT note Case discussed with attending, Dr. Hurd. -Christopher Le MD PGY1 Visit type - Emergency Visit Emergency Visit: Yes ED Registration Date: 08/12/17 Care time: The patient presented to the Emergency Department on the above date and was hospitalized for further evaluation of their emergent condition. - New Patient This patient is new to me today: No - Critical Care Critical Care patient: No <Dolores Hurd - Last Filed: 08/13/17 18:11> Physical Exam: patient seen and examined with Dr. Le at 11:20 AM Agree with above findings and plan of care with exceptions mentioned below. O/E: Abdomen: soft, generalized tenderness on exam, no voluntary or involuntary guarding or rigidity, positive bowel sounds extremities: no edema Chest: CTAB, no rales or wheezing Assessment/plan: -Acute stercoral colitis -Fecal impaction/severe constipation -Urinary retention, suspect from above and poor mobility -Complicated UTI in the setting of urinary retention -Syncope, likely vasovagal compounded by hypovolumia and orthostasis -Hypovolumic hyponatremia -HTN -HLD Plan: WBC rising, resume flagyl for now, follow up Stool C difficile. Levaquin for UTI, follow up cultures. Evidence of urinary retention, oquendo for now, Aggressive bowel regimen. Voiding trial once constipation and mobility improved. Change to soft diet. start gentle hydration, IVF bolus 250 mlx 1. Hold home anti-hypertensives. DVTPPX dispo planning pending improvement in above. Plan discussed with patient in detail, all questions answered.
[2017-08-13] MEDS ORDERED: SODIUM CHLORIDE 1,000 ML IV SCH (08:30)
[2017-08-13] MEDS ORDERED: SODIUM CHLORIDE 250 ML IV STA (09:00)
--- NOTE | 2017-08-13 09:14 | MSN ---
Progress Note (SOAP) - Subjective History of Present Illness: Abdominal cramps and constipation - Current Medications Current Medications: Active Medications Acetaminophen (Tylenol -) 650 mg PO Q4H PRN PRN Reason: pain 1-10 Last Admin: 08/12/17 21:39 Dose: 650 mg Aspirin (Ecotrin -) 81 mg PO DAILY [facility] Last Admin: 08/12/17 10:10 Dose: 81 mg Docusate Sodium (Colace -) 100 mg PO TID [facility] Last Admin: 08/13/17 06:18 Dose: 100 mg Heparin Sodium (Porcine) (Heparin -) 5,000 unit SQ TID [facility] Last Admin: 08/13/17 06:18 Dose: 5,000 unit Hydroxyzine HCl (Atarax -) 10 mg PO DAILY [facility] Last Admin: 08/12/17 13:20 Dose: Not Given Levofloxacin (Levaquin 500 Mg Premixed Ivpb -) 500 mg in 100 mls @ 100 mls/hr IVPB DAILY [facility] Last Admin: 08/12/17 23:07 Dose: 100 mls/hr Sodium Chloride (Normal Saline -) 250 mls @ 250 mls/hr IV ASDIR STA Stop: 08/13/17 09:59 Sodium Chloride (Normal Saline -) 1,000 mls @ 63 mls/hr IV ASDIR [facility] Stop: 08/14/17 08:29 Metronidazole (Flagyl -) 500 mg PO TID [facility] Pantoprazole Sodium (Protonix -) 20 mg PO DAILY [facility] Last Admin: 08/12/17 10:10 Dose: 20 mg Polyethylene Glycol (Miralax (For Daily Use) -) 17 gm PO BID [facility] Last Admin: 08/12/17 21:16 Dose: 17 grams Psyllium Hydrophilic Mucilloid (Metamucil (Sugar-Free) -) 5.85 gm PO BID [facility] Last Admin: 08/12/17 21:16 Dose: 5.85 gm - Objective Vital Signs: Vital Signs Temperature 98.4 F 08/13/17 08:00 Pulse Rate 59 L 08/13/17 08:00 Respiratory Rate 20 08/13/17 08:00 Blood Pressure 98/37 08/13/17 08:00 O2 Sat by Pulse Oximetry (%) 100 08/12/17 21:00 Constitutional: Yes: Well Nourished, No Distress, Calm Eyes: Yes: Conjunctiva Clear, EOM Intact HENT: Yes: Atraumatic, Normocephalic Cardiovascular: Yes: Regular Rate and Rhythm Respiratory: Yes: Regular, CTA Bilaterally Gastrointestinal: Yes: Soft, Hyperactive Bowel Sounds, Tenderness Peripheral Pulses WNL: Yes Peripheral Pulses: Left Radial: 2+, Right Radial: 2+, Left Doralis Pedis: 2+, Right Dorsalis Pedis: 2+ Edema: No Labs Lab Results: CBC, BMP 08/13/17 06:40 08/13/17 06:40 Assessment/Plan 1) Sterocolitis * Abdominal tenderness is same as admission * No abx needed per Dr. Frias * Continue colace, miralax and metamucil 2) Syncope * Was hypotensive at arrival, now normalized * ECG normal * No repeat episodes 3) Hypotension * BP down to 93/40 now at 106/50 * Due to volume depletion * Start on NS 3)Possible UTI * Continue levaquin day 3 * Follow up on urine culture 4) Hyponatremia * Down to 132 * Due to volume depletion * Start IV fluids NS
[2017-08-13] MEDS: hydrOXYzine HCL 10 MG TABLET PO SCH (09:33)
[2017-08-13] MEDS ORDERED: PT OWN MED DRAWER 7, Y5N ONE (10:55)
[2017-08-13] MEDS: SODIUM CHLORIDE 1,000 ML IV SCH (11:51)
[2017-08-13] MEDS: PANTOPRAZOLE 20 MG TABLET (FP) PO SCH (11:54)
[2017-08-13] MEDS: ASPIRIN COATED 81 MG TABLET.EC PO SCH (11:54)
[2017-08-13] MEDS: POLYETHYLENE GLYCOL 3350 119 GM BTL PO SCH ×2 (11:58→21:44)
[2017-08-13] MEDS: PSYLLIUM 5.85 GM PACKET PO SCH ×2 (12:53→21:45)
[2017-08-13] MEDS: metroNIDAZOLE 250 MG TABLET PO SCH ×3 (13:23→21:44)
[2017-08-13] MEDS: ACETAMINOPHEN 325 MG TABLET (FP) PO PRN (13:24)
[2017-08-14] MEDS: ACETAMINOPHEN 325 MG TABLET (FP) PO PRN ×2 (01:16→21:31)
[2017-08-14] MEDS: HEPARIN NA (PORCINE) 5,000 UNITS/ML 1ML VIAL SQ SCH ×3 (05:57→21:31)
[2017-08-14] MEDS: metroNIDAZOLE 250 MG TABLET PO SCH ×2 (05:57→14:05)
[2017-08-14] MEDS: DOCUSATE SODIUM 100 MG CAPSULE (FP) PO SCH ×3 (05:58→21:32)
[2017-08-14] MEDS: SODIUM CHLORIDE 1,000 ML IV SCH (06:17)
[2017-08-14 07:05] LABS: BASO % 0.2 % (0-2.0); EOS % 0.2 % (0-4.5); HEMATOCRIT 28.9 % (32.4-45.2); HEMOGLOBIN 9.6 GM/dL (10.7-15.3); LYMPH % 11.6 % (8-40); MCH 31.4 pg (25.7-33.7); MCHC 33.1 g/dl (32.0-36.0); MEAN CELL VOLUME 95.1 fl (80-96); MONO % 10.5 % (3.8-10.2); NEUT % 77.5 % (42.8-82.8); PLATELET COUNT 179 K/MM3 (134-434); RBC 3.04 M/mm3 (3.60-5.2); RDW 13.2 % (11.6-15.6); WHITE BLOOD COUNT 10.1 K/mm3 (4.0-10.0)
[2017-08-14 07:11] LABS: CHLORIDE 106 mmol/L (98-107); SODIUM 137 mmol/L (136-145)
[2017-08-14 07:21] LABS: ANION GAP 8 (8-16); BLOOD UREA NITROGEN 17 mg/dL (7-18); CALCIUM 7.8 mg/dL (8.5-10.1); CO2 23 mmol/L (21-32); CREATININE 0.7 mg/dL (0.55-1.02); GLUCOSE,RANDOM 86 mg/dL (74-106)
--- NOTE | 2017-08-14 07:49 | MSN ---
Progress Note (SOAP) - Subjective Chief Complaint: Abdominal pain and constipation History of Present Illness: 87 y/o female being treated for sterocolitis and urine retention. No acute events overnight. Pt claims that abdominal pain and tenderness are greatly reduced. Pt is able to tolerate some solid foods. - Current Medications Current Medications: Active Medications Acetaminophen (Tylenol -) 650 mg PO Q4H PRN PRN Reason: pain 1-10 Last Admin: 08/14/17 01:16 Dose: 650 mg Aspirin (Ecotrin -) 81 mg PO DAILY [facility] Last Admin: 08/13/17 11:54 Dose: 81 mg Docusate Sodium (Colace -) 100 mg PO TID [facility] Last Admin: 08/14/17 05:58 Dose: 100 mg Heparin Sodium (Porcine) (Heparin -) 5,000 unit SQ TID [facility] Last Admin: 08/14/17 05:57 Dose: 5,000 unit Hydroxyzine HCl (Atarax -) 10 mg PO DAILY [facility] Last Admin: 08/13/17 09:33 Dose: Not Given Levofloxacin (Levaquin 500 Mg Premixed Ivpb -) 500 mg in 100 mls @ 100 mls/hr IVPB DAILY [facility] Last Admin: 08/13/17 11:54 Dose: 100 mls/hr Sodium Chloride (Normal Saline -) 1,000 mls @ 63 mls/hr IV ASDIR [facility] Stop: 08/14/17 08:29 Last Admin: 08/14/17 06:17 Dose: 63 mls/hr Metronidazole (Flagyl -) 500 mg PO TID [facility] Last Admin: 08/14/17 05:57 Dose: 500 mg Pantoprazole Sodium (Protonix -) 20 mg PO DAILY [facility] Last Admin: 08/13/17 11:54 Dose: 20 mg Polyethylene Glycol (Miralax (For Daily Use) -) 17 gm PO BID [facility] Last Admin: 08/13/17 21:44 Dose: 17 grams Psyllium Hydrophilic Mucilloid (Metamucil (Sugar-Free) -) 5.85 gm PO BID [facility] Last Admin: 08/13/17 21:45 Dose: 5.85 gm - Objective Vital Signs: Vital Signs Temperature 99.3 F 08/14/17 06:10 Pulse Rate 65 08/14/17 06:10 Respiratory Rate 20 08/14/17 06:10 Blood Pressure 105/50 08/14/17 06:10 O2 Sat by Pulse Oximetry (%) 98 08/13/17 22:00 Constitutional: Yes: Well Nourished, No Distress, Calm Eyes: Yes: Conjunctiva Clear, EOM Intact Cardiovascular: Yes: Regular Rate and Rhythm Respiratory: Yes: Regular, CTA Bilaterally Gastrointestinal: Yes: Soft, Hyperactive Bowel Sounds, Tenderness Peripheral Pulses WNL: Yes Peripheral Pulses: Left Radial: 2+, Right Radial: 2+, Left Doralis Pedis: 2+, Right Dorsalis Pedis: 2+ Edema: No Labs Lab Results: CBC, BMP 08/14/17 06:10 Assessment/Plan 1) Sterocolitis * Abdominal tenderness has improved since yesterday * Two solid BMs in the night and one in the morning * Bladder scan showed retention of 1L * Patterson inserted and eric colored urine put out * Pt able to tolerate solid diet * C diff pending * Continue colace, miralax and metamucil * PT evaluation 2) Syncope * Was hypotensive at arrival, now normalized * ECG normal * No repeat episodes * Likely vasovagal 3) Hypotension * BP down to 93/40 now at 106/50 * Due to volume depletion * Start on NS 3)Possible UTI * Continue levaquin day 4 * Urine culture no growth 4) Hyponatremia * Down to 132 * Due to volume depletion * Start IV fluids NS
[2017-08-14] MEDS: hydrOXYzine HCL 10 MG TABLET PO SCH (09:40)
[2017-08-14] MEDS ORDERED: PT OWN MED DRAWER 7, Y5N ONE (10:05)
[2017-08-14] MEDS: PANTOPRAZOLE 20 MG TABLET (FP) PO SCH (10:16)
[2017-08-14] MEDS: ASPIRIN COATED 81 MG TABLET.EC PO SCH (10:16)
[2017-08-14] MEDS: POLYETHYLENE GLYCOL 3350 119 GM BTL PO SCH ×2 (10:17→21:32)
[2017-08-14] MEDS: PSYLLIUM 5.85 GM PACKET PO SCH ×2 (10:17→21:31)
--- NOTE | 2017-08-14 14:02 | PN ---
Teaching Attending Note Name of Resident: Christopher Le ATTENDING PHYSICIAN STATEMENT Time of evaluation: 11:50 AM I saw and evaluated the patient. I reviewed the resident's note and discussed the case with the resident. I agree with the resident's findings and plan as documented. SUBJECTIVE: Patient seen and examined. abdominal pain markedly improved, tolerating diet well, no new complaints. Ongoing BM. OBJECTIVE: Vital Signs Period Temp Pulse Resp BP Sys/[place] Pulse Ox Last 24 Hr 98.8 F-99.3 F 60-65 15-20 101-107/44-61 98 Intake & Output 08/11/17 08/12/17 08/13/17 08/14/17 23:59 23:59 23:59 23:59 Intake Total 1500 1350 1447 756 Output Total 125 2255 1000 Balance 1375 1350 -808 -244 Weight 110 lb 3.698 oz 119 lb 1.6 oz general: sitting in chair in no acute distress Abdomen: softer today, non tender throughout, no voluntary or involuntary guarding or rigidity, positive bowel sounds, no CVA tenderness extremities: no edema Home Medication List Medication Instructions Recorded Confirmed Type Simvastatin [Zocor] 30 mg PO DAILY 01/11/12 08/11/17 History Amlodipine Besylate [Norvasc -] 10 mg PO DAILY 06/13/16 08/11/17 History Aspirin [Ecotrin] 81 mg PO DAILY 06/13/16 08/11/17 History Carvedilol [Coreg -] 25 mg PO BID 12/26/16 08/11/17 History Quinapril HCl [Accupril -] 40 mg PO DAILY 12/26/16 08/11/17 History Omeprazole 20 mg PO DAILY 05/30/17 08/11/17 History Hydroxyzine HCl 10 mg PO DAILY 08/11/17 08/11/17 History Methenamine Hippurate [Hiprex [Nf] 1 gm PO BID 08/11/17 08/11/17 History -] Polyethylene Glycol 3350 [Miralax 17 gm PO BID PRN 08/11/17 08/11/17 History (For Daily Use) -] Tamsulosin HCl [Flomax] 0.4 mg PO DAILY 08/11/17 08/11/17 History Active Medications Generic Name Dose Route Start Last Admin Trade Name Freq PRN Reason Stop Dose Admin Acetaminophen 650 mg 08/12/17 12:47 08/14/17 01:16 Tylenol - PO 650 mg Q4H PRN Administration pain 1-10 Aspirin 81 mg 08/12/17 10:00 08/14/17 10:16 Ecotrin - PO 81 mg DAILY [facility] Administration Docusate Sodium 100 mg 08/12/17 06:00 08/14/17 14:06 Colace - PO 100 mg TID [facility] Administration Heparin Sodium (Porcine) 5,000 unit 08/12/17 06:00 08/14/17 14:06 Heparin - SQ 5,000 unit TID [facility] Administration Hydroxyzine HCl 10 mg 08/12/17 10:00 08/14/17 09:40 Atarax - PO Not Given DAILY [facility] Pantoprazole Sodium 20 mg 08/12/17 10:00 08/14/17 10:16 Protonix - PO 20 mg DAILY [facility] Administration Polyethylene Glycol 17 gm 08/12/17 22:00 08/14/17 10:17 Miralax (For Daily Use) - PO 17 grams BID [facility] Administration Psyllium Hydrophilic Mucilloid 5.85 gm 08/12/17 10:00 08/14/17 10:17 Metamucil (Sugar-Free) - PO 5.85 gm BID [facility] Administration Laboratory Results - last 24 hr 08/13/17 08/14/17 08/14/17 06:40 06:10 06:10 WBC 10.1 H RBC 3.04 L Hgb 9.6 L Hct 28.9 L MCV 95.1 MCH 31.4 MCHC 33.1 RDW 13.2 Plt Count 179 MPV 8.0 Neutrophils % 77.5 Lymphocytes % 11.6 Monocytes % 10.5 H Eosinophils % 0.2 D Basophils % 0.2 Sodium 132 L 137 Potassium 4.4 4.0 Chloride 101 106 Carbon Dioxide 24 23 Anion Gap 7 L 8 BUN 30 H 17 Creatinine 1.0 0.7 Random Glucose 100 86 Calcium 7.7 L 7.8 L Ferritin 133.073 Microbiology 08/11/17 00:35 Urine - Urine Clean Catch Urine Culture - Final NO GROWTH OBTAINED ASSESSMENT AND PLAN: -Acute stercoral colitis -Fecal impaction/severe constipation -Urinary retention, suspect from above and poor mobility -Complicated UTI in the setting of urinary retention -Syncope, likely vasovagal compounded by hypovolumia and orthostasis -Hypovolumic hyponatremia -HTN -HLD Plan: Clinically improved, afebrile, normal WBC. tolerating diet with benign abdominal exam and ongoing BM. urine cultures neg. D/c levaquin/flagyl, monitor clinically. No stool C difficile sent but unlikely given presentation. d/c oquendo, voiding trial. Additional w/u imaging if fails. Encourage OOB and ambulation. PT eval noted. Dispo planning home with assist/services in 24 hours if continues to improve and no new concerns. Plan discussed with patient in detail, all questions answered.
--- NOTE | 2017-08-14 14:08 | PN ---
Physical Exam: SUBJECTIVE: Patient seen and examined No acute events overnight. pt reports decreased abdominal pain, no nausea, and she endorses 2 x BM. She is tolerating a regular diet. OBJECTIVE: Vital Signs Period Temp Pulse Resp BP Sys/[place] Pulse Ox Last 24 Hr 98.8 F-99.3 F 60-65 15-20 101-107/44-61 98 GENERAL: elderly female, awake, alert, and fully oriented, in no acute distress. HEENT: NC, AT LUNGS: Breath sounds equal, clear to auscultation bilaterally, no wheezes, no crackles, no accessory muscle use. HEART: Regular rate and rhythm, S1, S2 without murmur, rub or gallop. ABDOMEN: mildly distended, soft, minimally tender to palpation diffusely, no masses EXTREMITIES: 2+ pulses, warm, well-perfused, no edema. NEUROLOGICAL: Cranial nerves II through XII grossly intact. Normal speech, gait not observed. Laboratory Results - last 24 hr 08/13/17 08/14/17 08/14/17 06:40 06:10 06:10 WBC 10.1 H RBC 3.04 L Hgb 9.6 L Hct 28.9 L MCV 95.1 MCH 31.4 MCHC 33.1 RDW 13.2 Plt Count 179 MPV 8.0 Neutrophils % 77.5 Lymphocytes % 11.6 Monocytes % 10.5 H Eosinophils % 0.2 D Basophils % 0.2 Sodium 132 L 137 Potassium 4.4 4.0 Chloride 101 106 Carbon Dioxide 24 23 Anion Gap 7 L 8 BUN 30 H 17 Creatinine 1.0 0.7 Random Glucose 100 86 Calcium 7.7 L 7.8 L Ferritin 133.073 Active Medications Generic Name Dose Route Start Last Admin Trade Name Freq PRN Reason Stop Dose Admin Acetaminophen 650 mg 08/12/17 12:47 08/14/17 01:16 Tylenol - PO 650 mg Q4H PRN Administration pain 1-10 Aspirin 81 mg 08/12/17 10:00 08/14/17 10:16 Ecotrin - PO 81 mg DAILY [facility] Administration Docusate Sodium 100 mg 08/12/17 06:00 08/14/17 14:06 Colace - PO 100 mg TID [facility] Administration Heparin Sodium (Porcine) 5,000 unit 08/12/17 06:00 08/14/17 14:06 Heparin - SQ 5,000 unit TID [facility] Administration Hydroxyzine HCl 10 mg 08/12/17 10:00 08/14/17 09:40 Atarax - PO Not Given DAILY [facility] Pantoprazole Sodium 20 mg 08/12/17 10:00 08/14/17 10:16 Protonix - PO 20 mg DAILY [facility] Administration Polyethylene Glycol 17 gm 08/12/17 22:00 08/14/17 10:17 Miralax (For Daily Use) - PO 17 grams BID [facility] Administration Psyllium Hydrophilic Mucilloid 5.85 gm 08/12/17 10:00 08/14/17 10:17 Metamucil (Sugar-Free) - PO 5.85 gm BID [facility] Administration ASSESSMENT/PLAN: 87F w/ hx of colitis, diverticulitis, multiple UTIs, HTN, and HLD who presented with abdominal pain, diarrhea and syncope, found to have stercoral colitis. #abdominal pain -improving. BM x 2 -leukocytosis of 10.1, continue to monitor. afebrile -likely 2/2 stercoral colitis vs. bladder retention -GI on board, recs appreciated. -miralax, metamucil, and colace -bladder scan: showed that pt is retaining. s/p oquendo insertion. d/c oquendo today and attempt trial of void, bladder scans q6h -flagyl and levaquin d/c'd -changed pt to regular diet #syncope -likely vasovagal as pt lost consciousness on toilet -pacemaker interrogation: normal as of 2 weeks ago #hyponatremia -Na of 137 today -continue NS @ 62 #anemia -f/u FOBT -ferritin: normal -f/u TIBC #HTN -home meds held as pt is normotensive #HLD -continue home simvastatin #FEN/ppx -NS @ 62 -electrolytes wnl -regular diet -protonix -heparin 5000U TID #PT -rec home with services #Dispo -likely lisbet to home with services. Case discussed with attending, Dr. Hurd. -Christopher Le MD PGY1 Visit type - Emergency Visit Emergency Visit: Yes ED Registration Date: 08/12/17 Care time: The patient presented to the Emergency Department on the above date and was hospitalized for further evaluation of their emergent condition. - New Patient This patient is new to me today: No - Critical Care Critical Care patient: No
[2017-08-15] MEDS: HEPARIN NA (PORCINE) 5,000 UNITS/ML 1ML VIAL SQ SCH ×2 (05:52→15:22)
[2017-08-15] MEDS: DOCUSATE SODIUM 100 MG CAPSULE (FP) PO SCH (05:52)
[2017-08-15 08:02] LABS: BASO % 0.5 % (0-2.0); EOS % 1.5 % (0-4.5); HEMATOCRIT 31.8 % (32.4-45.2); HEMOGLOBIN 10.8 GM/dL (10.7-15.3); LYMPH % 15.9 % (8-40); MCH 32.4 pg (25.7-33.7); MCHC 34.1 g/dl (32.0-36.0); MEAN CELL VOLUME 95.1 fl (80-96); MEAN PLT VOLUME 7.6 fl (7.5-11.1); NEUT % 74.1 % (42.8-82.8); PLATELET COUNT 217 K/MM3 (134-434); RBC 3.34 M/mm3 (3.60-5.2); RDW 13.1 % (11.6-15.6); WHITE BLOOD COUNT 7.2 K/mm3 (4.0-10.0)
--- NOTE | 2017-08-15 08:06 | MSN ---
Progress Note (SOAP) - Subjective Chief Complaint: Abdominal pain and constipation History of Present Illness: 87 y/o female being treated for sterocolitis and urine retention. No acute events overnight. Pt was found to have urinary retention of 800mL at night bladder scan. Oquendo was inserted and 1.3L were voided. Pt also claims several bouts of watery diarrhea throughout the night. She also complains of increased abdominal pain and tenderness since yesterday. - Current Medications Current Medications: Active Medications Acetaminophen (Tylenol -) 650 mg PO Q4H PRN PRN Reason: pain 1-10 Last Admin: 08/14/17 21:31 Dose: 650 mg Aspirin (Ecotrin -) 81 mg PO DAILY [facility] Last Admin: 08/14/17 10:16 Dose: 81 mg Docusate Sodium (Colace -) 100 mg PO TID [facility] Last Admin: 08/15/17 05:52 Dose: 100 mg Heparin Sodium (Porcine) (Heparin -) 5,000 unit SQ TID [facility] Last Admin: 08/15/17 05:52 Dose: 5,000 unit Hydroxyzine HCl (Atarax -) 10 mg PO DAILY [facility] Last Admin: 08/14/17 09:40 Dose: Not Given Pantoprazole Sodium (Protonix -) 20 mg PO DAILY [facility] Last Admin: 08/14/17 10:16 Dose: 20 mg Polyethylene Glycol (Miralax (For Daily Use) -) 17 gm PO BID [facility] Last Admin: 08/14/17 21:32 Dose: 17 grams Psyllium Hydrophilic Mucilloid (Metamucil (Sugar-Free) -) 5.85 gm PO BID [facility] Last Admin: 08/14/17 21:31 Dose: 5.85 gm - Objective Vital Signs: Vital Signs Temperature 97.9 F 08/15/17 06:00 Pulse Rate 91 H 08/15/17 06:00 Respiratory Rate 15 08/14/17 19:57 Blood Pressure 147/92 08/15/17 06:00 O2 Sat by Pulse Oximetry (%) 98 08/14/17 22:00 Constitutional: Yes: Well Nourished, No Distress, Calm Eyes: Yes: WNL, Conjunctiva Clear, EOM Intact HENT: Yes: Atraumatic, Normocephalic Neck: Yes: WNL, Supple, Trachea Midline Cardiovascular: Yes: WNL, Regular Rate and Rhythm Respiratory: Yes: WNL, Regular, CTA Bilaterally Gastrointestinal: Yes: Soft, Hyperactive Bowel Sounds, Tenderness Peripheral Pulses WNL: Yes Peripheral Pulses: Left Radial: 2+, Right Radial: 2+, Left Doralis Pedis: 2+, Right Dorsalis Pedis: 2+ Edema: No Neurological: Yes: WNL, Alert, Oriented Psychiatric: Yes: WNL, Alert, Oriented <Jerome Saxena - Last Filed: 08/15/17 12:07> - Current Medications Current Medications: Active Medications Acetaminophen (Tylenol -) 650 mg PO Q4H PRN PRN Reason: pain 1-10 Last Admin: 08/14/17 21:31 Dose: 650 mg Aspirin (Ecotrin -) 81 mg PO DAILY [facility] Last Admin: 08/15/17 10:21 Dose: 81 mg Ferrous Sulfate (Feosol -) 325 mg PO DAILY [facility] Last Admin: 08/15/17 10:21 Dose: 325 mg Heparin Sodium (Porcine) (Heparin -) 5,000 unit SQ TID [facility] Last Admin: 08/15/17 15:22 Dose: Not Given Hydroxyzine HCl (Atarax -) 10 mg PO DAILY [facility] Last Admin: 08/15/17 10:16 Dose: Not Given Pantoprazole Sodium (Protonix -) 20 mg PO DAILY [facility] Last Admin: 08/15/17 10:21 Dose: 20 mg Psyllium Hydrophilic Mucilloid (Metamucil (Sugar-Free) -) 5.85 gm PO BID [facility] Last Admin: 08/15/17 10:23 Dose: Not Given - Objective Vital Signs: Vital Signs Temperature 98.4 F 08/15/17 15:01 Pulse Rate 77 08/15/17 15:01 Respiratory Rate 20 08/15/17 09:00 Blood Pressure 139/70 08/15/17 15:01 O2 Sat by Pulse Oximetry (%) 96 08/15/17 09:00 <Dolores Hurd - Last Filed: 08/15/17 16:09> Labs Lab Results: Laboratory Results - last 24 hr 08/13/17 08/14/17 08/15/17 06:40 06:10 07:15 WBC 7.2 RBC 3.34 L Hgb 10.8 D Hct 31.8 L MCV 95.1 MCH 32.4 MCHC 34.1 RDW 13.1 Plt Count 217 D MPV 7.6 Neutrophils % 74.1 Lymphocytes % 15.9 D Monocytes % 8.0 Eosinophils % 1.5 D Basophils % 0.5 Iron 14 L TIBC 187 L Iron Saturation 7 L Ferritin 105.090 CBC, [facility] 08/15/17 07:15 <Jerome Saxena - Last Filed: 08/15/17 12:07> Lab Results: CBC, [facility] 08/15/17 07:15 08/15/17 07:15 <Dolores Hurd - Last Filed: 08/15/17 16:09> Assessment/Plan 1) Sterocolitis * Abdominal tenderness has worsened since yesterday * Several bouts of watery diarrhea overnight * Bladder scan overnight showed retention of 800mL, f/c inserted and 1.3L voided * Oquendo inserted and eric colored urine put out * Pt able to tolerate solid diet * C diff pending * Continue colace, miralax and metamucil 2) Syncope * Was hypotensive at arrival, now normalized * ECG normal * No repeat episodes * Likely vasovagal * Evaluated by PT, walked 80 feet 3) Hypotension * BP has normalized * Due to volume depletion * On NS 3)Possible UTI * No more antibiotics * Urine culture no growth 4) Hyponatremia * Normalized to 137 * Due to volume depletion * On IV fluids NS 5) Iron Deficiency Anemia * Start PO Iron <Jerome Saxena - Last Filed: 08/15/17 12:07> patient when seen denied any abdominal pain, nausea, vomiting. has oquendo re inserted. Mulitple BM from aggressive bowel regimen, will hold today and resume standing regimen with miralax prn for no BM x 48 hours <Dolores Hurd - Last Filed: 08/15/17 16:09>
[2017-08-15 08:07] LABS: SERUM IRON SATURATION 7 % (15-55); TOTAL IRON BINDING CAPACITY 187 ug/dL (250-450); UIBC 173 ug/dL (118-369)
[2017-08-15 08:22] LABS: ANION GAP 9 (8-16); BLOOD UREA NITROGEN 11 mg/dL (7-18); CALCIUM 7.9 mg/dL (8.5-10.1); CHLORIDE 106 mmol/L (98-107); CO2 24 mmol/L (21-32); CREATININE 0.6 mg/dL (0.55-1.02); GLUCOSE,RANDOM 98 mg/dL (74-106); POTASSIUM 3.6 mmol/L (3.5-5.1); SODIUM 139 mmol/L (136-145)
--- NOTE | 2017-08-15 08:44 | PN ---
Teaching Attending Note Name of Resident: Christopher Le ATTENDING PHYSICIAN STATEMENT Time of evaluation: 10:30 AM I saw and evaluated the patient. I reviewed the resident's note and discussed the case with the resident. I agree with the resident's findings and plan as documented. SUBJECTIVE: Patient seen and examined. had some suprapubic discomfort earlier that is resolved now. OBJECTIVE: Vital Signs Period Temp Pulse Resp BP Sys/[place] Pulse Ox Last 24 Hr 97.9 F-99.2 F 60-91 15-20 101-147/46-92 98 Intake & Output 08/12/17 08/13/17 08/14/17 08/15/17 23:59 23:59 23:59 23:59 Intake Total 1350 1447 1506 200 Output Total 2255 1700 1170 Balance 0360 -809 -194 -970 Weight 119 lb 1.6 oz general: sitting in bed in no acute distress Abdomen: soft, NT, ND currently, positive bowel sounds Home Medication List Medication Instructions Recorded Confirmed Type Simvastatin [Zocor] 30 mg PO DAILY 01/11/12 08/11/17 History Amlodipine Besylate [Norvasc -] 10 mg PO DAILY 06/13/16 08/11/17 History Aspirin [Ecotrin] 81 mg PO DAILY 06/13/16 08/11/17 History Carvedilol [Coreg -] 25 mg PO BID 12/26/16 08/11/17 History Quinapril HCl [Accupril -] 40 mg PO DAILY 12/26/16 08/11/17 History Omeprazole 20 mg PO DAILY 05/30/17 08/11/17 History Hydroxyzine HCl 10 mg PO DAILY 08/11/17 08/11/17 History Methenamine Hippurate [Hiprex [Nf] 1 gm PO BID 08/11/17 08/11/17 History -] Polyethylene Glycol 3350 [Miralax 17 gm PO BID PRN 08/11/17 08/11/17 History (For Daily Use) -] Tamsulosin HCl [Flomax] 0.4 mg PO DAILY 08/11/17 08/11/17 History Active Medications Generic Name Dose Route Start Last Admin Trade Name Freq PRN Reason Stop Dose Admin Acetaminophen 650 mg 08/12/17 12:47 08/14/17 21:31 Tylenol - PO 650 mg Q4H PRN Administration pain 1-10 Aspirin 81 mg 08/12/17 10:00 08/14/17 10:16 Ecotrin - PO 81 mg DAILY [facility] Administration Docusate Sodium 100 mg 08/12/17 06:00 08/15/17 05:52 Colace - PO 100 mg TID [facility] Administration Ferrous Sulfate 325 mg 08/15/17 10:00 Feosol - PO DAILY [facility] Heparin Sodium (Porcine) 5,000 unit 08/12/17 06:00 08/15/17 05:52 Heparin - SQ 5,000 unit TID [facility] Administration Hydroxyzine HCl 10 mg 08/12/17 10:00 08/14/17 09:40 Atarax - PO Not Given DAILY [facility] Pantoprazole Sodium 20 mg 08/12/17 10:00 08/14/17 10:16 Protonix - PO 20 mg DAILY [facility] Administration Polyethylene Glycol 17 gm 08/12/17 22:00 08/14/17 21:32 Miralax (For Daily Use) - PO 17 grams BID [facility] Administration Psyllium Hydrophilic Mucilloid 5.85 gm 08/12/17 10:00 08/14/17 21:31 Metamucil (Sugar-Free) - PO 5.85 gm BID [facility] Administration Laboratory Results - last 24 hr 08/13/17 08/14/17 08/15/17 06:40 06:10 07:15 WBC 7.2 RBC 3.34 L Hgb 10.8 D Hct 31.8 L MCV 95.1 MCH 32.4 MCHC 34.1 RDW 13.1 Plt Count 217 D MPV 7.6 Neutrophils % 74.1 Lymphocytes % 15.9 D Monocytes % 8.0 Eosinophils % 1.5 D Basophils % 0.5 Sodium Potassium Chloride Carbon Dioxide Anion Gap BUN Creatinine Random Glucose Calcium Iron 14 L TIBC 187 L Iron Saturation 7 L Ferritin 105.090 08/15/17 07:15 WBC RBC Hgb Hct MCV MCH MCHC RDW Plt Count MPV Neutrophils % Lymphocytes % Monocytes % Eosinophils % Basophils % Sodium 139 Potassium 3.6 Chloride 106 Carbon Dioxide 24 Anion Gap 9 BUN 11 Creatinine 0.6 Random Glucose 98 Calcium 7.9 L Iron TIBC Iron Saturation Ferritin Microbiology 08/11/17 00:35 Urine - Urine Clean Catch Urine Culture - Final NO GROWTH OBTAINED ASSESSMENT AND PLAN: -Acute stercoral colitis -Fecal impaction/severe constipation -Urinary retention, suspect from above and poor mobility -Complicated UTI in the setting of urinary retention -Syncope, likely vasovagal compounded by hypovolumia and orthostasis -Hypovolumic hyponatremia -Iron deficiency anemia -HTN -HLD Plan: Doing well, tolerating diet. Continue bowel regimen. recurrent retention, oquendo re-inserted. Discussed with Dr. Weaver, patient with known prior high post voidal urine. Recommend d/c with oquendo, bowel regimen and he will follow up in office next week. Patient currently with benign abdominal exam and no concerns for UTI. Continue flomax, oquendo teaching and outpatient urology follow up. PPM with no concerns. Start PO iron. off antibiotics for UTI and possible colitis, no concerns currently, urine cultures neg. PT eval noted. Resume home coreg/quinapril, second episode of vasovagal syncope. Will hold amlodipine and advise resumption on d/c based on BP readings. d/c home with oquendo and home services today with outpatient GI, urology and PCP follow up Plan discussed with patient in detail, all questions answered. Feels comfortable managing oquendo at home.
[2017-08-15] MEDS ORDERED: POTASSIUM CHLORIDE TABS 20 MEQ TABLET.ER (FP) PO ONE (08:45)
[2017-08-15 09:50] VITALS: TEMP 98.4
[2017-08-15] MEDS ORDERED: FERROUS SO4 325 MG TABLET (FP) PO SCH (10:00)
[2017-08-15] MEDS: hydrOXYzine HCL 10 MG TABLET PO SCH (10:16)
[2017-08-15] MEDS: POLYETHYLENE GLYCOL 3350 119 GM BTL PO SCH (10:20)
[2017-08-15] MEDS: ASPIRIN COATED 81 MG TABLET.EC PO SCH (10:21)
[2017-08-15] MEDS: PANTOPRAZOLE 20 MG TABLET (FP) PO SCH (10:21)
[2017-08-15] MEDS: PSYLLIUM 5.85 GM PACKET PO SCH (10:23)
--- NOTE | 2017-08-15 14:33 | PN ---
Progress Note, Physician History of Present Illness: No events. Clinically better. Still has loose stools and mucus. Abdominal pain is better. Tolerating reg. diet - Current Medication List Current Medications: Active Medications Acetaminophen (Tylenol -) 650 mg PO Q4H PRN PRN Reason: pain 1-10 Last Admin: 08/14/17 21:31 Dose: 650 mg Aspirin (Ecotrin -) 81 mg PO DAILY [facility] Last Admin: 08/15/17 10:21 Dose: 81 mg Ferrous Sulfate (Feosol -) 325 mg PO DAILY [facility] Last Admin: 08/15/17 10:21 Dose: 325 mg Heparin Sodium (Porcine) (Heparin -) 5,000 unit SQ TID [facility] Last Admin: 08/15/17 05:52 Dose: 5,000 unit Hydroxyzine HCl (Atarax -) 10 mg PO DAILY [facility] Last Admin: 08/15/17 10:16 Dose: Not Given Pantoprazole Sodium (Protonix -) 20 mg PO DAILY [facility] Last Admin: 08/15/17 10:21 Dose: 20 mg Psyllium Hydrophilic Mucilloid (Metamucil (Sugar-Free) -) 5.85 gm PO BID [facility] Last Admin: 08/15/17 10:23 Dose: Not Given - Objective Vital Signs: Vital Signs Temperature 98.4 F 08/15/17 09:00 Pulse Rate 85 08/15/17 09:00 Respiratory Rate 20 08/15/17 09:00 Blood Pressure 132/60 08/15/17 09:00 O2 Sat by Pulse Oximetry (%) 96 08/15/17 09:00 Constitutional: Yes: Well Nourished, No Distress, Calm Eyes: Yes: Conjunctiva Clear HENT: Yes: Atraumatic Gastrointestinal: Yes: Normal Bowel Sounds, Soft. No: Distention, Rectal Bleeding, Vomiting Labs: CBC, BMP 08/15/17 07:15 08/15/17 07:15 CBCD WBC 7.2 K/mm3 (4.0-10.0) 08/15/17 07:15 RBC 3.34 M/mm3 (3.60-5.2) L 08/15/17 07:15 Hgb 10.8 GM/dL (10.7-15.3) D 08/15/17 07:15 Hct 31.8 % (32.4-45.2) L 08/15/17 07:15 MCV 95.1 fl (80-96) 08/15/17 07:15 MCHC 34.1 g/dl (32.0-36.0) 08/15/17 07:15 RDW 13.1 % (11.6-15.6) 08/15/17 07:15 Plt Count 217 K/MM3 (134-434) D 08/15/17 07:15 MPV 7.6 fl (7.5-11.1) 08/15/17 07:15 CMP Sodium 139 mmol/L (136-145) 08/15/17 07:15 Potassium 3.6 mmol/L (3.5-5.1) 08/15/17 07:15 Chloride 106 mmol/L (98-107) 08/15/17 07:15 Carbon Dioxide 24 mmol/L (21-32) 08/15/17 07:15 Anion Gap 9 (8-16) 08/15/17 07:15 BUN 11 mg/dL (7-18) 08/15/17 07:15 Creatinine 0.6 mg/dL (0.55-1.02) 08/15/17 07:15 Creat Clearance w eGFR > 60 (>60) 08/12/17 05:00 Calcium 7.9 mg/dL (8.5-10.1) L 08/15/17 07:15 Total Bilirubin 0.9 mg/dL (0.2-1.0) D 08/12/17 05:00 AST 18 U/L (15-37) 08/12/17 05:00 ALT 20 U/L (12-78) 08/12/17 05:00 Alkaline Phosphatase 40 U/L (45-117) L 08/12/17 05:00 Total Protein 5.8 g/dl (6.4-8.2) L 08/12/17 05:00 Albumin 2.8 g/dl (3.4-5.0) L 08/12/17 05:00 Problem List - Problems (1) Stercoral ulcer of large intestine Code(s): K63.3 - ULCER OF INTESTINE (2) Acute constipation Code(s): K59.00 - CONSTIPATION, UNSPECIFIED (3) Colitis Code(s): K52.9 - NONINFECTIVE GASTROENTERITIS AND COLITIS, UNSPECIFIED Assessment/Plan Diet as tolerated PO hydration Observe Colonoscopy in 6-8 weeks discussed, pt wants to take "one step at a time". Agrees to follow up as OP to discuss this again.
[2017-08-15 15:01] VITALS: BP 139/70; PULSE 77
--- NOTE | 2017-08-15 16:42 | DS ---
Physical Exam: SUBJECTIVE: Patient seen and examined Overnight, pt passed voiding trial. This am, pt complaining of worsening suprapubic pain, but denies nausea, emesis, chest pain, SOB, fevers, and chills. OBJECTIVE: Vital Signs Period Temp Pulse Resp BP Sys/[place] Pulse Ox Last 24 Hr 97.9 F-98.6 F 67-91 15-20 132-147/60-92 96-98 PHYSICAL EXAM GENERAL: elderly female, awake, alert, and fully oriented, in no acute distress. HEENT: NC, AT LUNGS: Breath sounds equal, clear to auscultation bilaterally, no wheezes, no crackles, no accessory muscle use. HEART: Regular rate and rhythm, S1, S2 without murmur, rub or gallop. ABDOMEN: mildly distended, soft, moderately tender in suprapubic area, dull to percussion over suprapubic area EXTREMITIES: 2+ pulses, warm, well-perfused, no edema. NEUROLOGICAL: Cranial nerves II through XII grossly intact. Normal speech, gait not observed. LABS Laboratory Results - last 24 hr 08/14/17 08/15/17 08/15/17 06:10 07:15 07:15 WBC 7.2 RBC 3.34 L Hgb 10.8 D Hct 31.8 L MCV 95.1 MCH 32.4 MCHC 34.1 RDW 13.1 Plt Count 217 D MPV 7.6 Neutrophils % 74.1 Lymphocytes % 15.9 D Monocytes % 8.0 Eosinophils % 1.5 D Basophils % 0.5 Sodium 139 Potassium 3.6 Chloride 106 Carbon Dioxide 24 Anion Gap 9 BUN 11 Creatinine 0.6 Random Glucose 98 Calcium 7.9 L Iron 14 L TIBC 187 L Iron Saturation 7 L Microbiology 08/11/17 00:35 Urine - Urine Clean Catch Urine Culture - Final NO GROWTH OBTAINED CXR: no acute pathology CT abd/pelvis: IMPRESSION: In comparison to a prior CT study of 05/30/2017 interval development of marked colonic fecal retention is noted. There is associated mild smooth wall thickening which could be on the basis of stercoral colitis. Correlate clinically. Concentric wall edema involving the left colon noted on the prior exam is not definitely identified on the current study. Very small amount of pelvic free fluid. Apparent interval development of mild nonspecific wall thickening is seen along the urinary bladder dome ventrally. Correlate with close follow-up CT versus cystoscopy. 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 Pt treated with abx and started on a bowel regimen of coalce, miralax, and metamucil. Pt was seen by GI. Syncope was deemed to be vasovagal, and her pacemaker was interrogated and found to be working fine. Pt's abdominal pain worsened and was found to be retaining urine. A oquendo cather was placed, and she failed a trial of void after removal. Pt's urologist, Dr. Martin made aware, who stated that pt has known hx of urinary retention and multiple UTIs. He recommended discharge with oquendo and close f/u. Today, pt has no complaints, has normal vitals, an improved physical exam, normal labs, and is stable for discharge home with VNS. Pt instructed to f/u with PCP, GI, and urologist. Pt told to continue a bowel regimen to prevent constipation which can be the cause of her stercoral colitis and urinary retention. Pt was started on ferrous sulfate and metamucil, and told to discontinue her norvasc because her BPs have been normal without it in the hospital. -Christopher Le MD PGY1 Minutes to complete discharge: 38 Discharge Summary Reason For Visit: ABDOMINAL PAIN Current Active Problems Acute constipation (Acute) Colitis (Acute) DVT prophylaxis (Acute) Intractable nausea and vomiting (Acute) Stercoral ulcer of large intestine (Acute) Urinary retention with incomplete bladder emptying (Acute) Vaso vagal episode (Acute) Condition: Stable - Instructions Diet, Activity, Other Instructions: You presented with abdominal pain, diarrhea, and syncope. You were found to have inflammation in your colon, a possible UTI, and urinary retention. You were treated with laxatives, antibiotics, and a oquendo catheter. PLEASE ENSURE YOU DO NOT GO MORE THAN 2 DAYS WITHOUT A BOWEL MOVEMENT AND TAKE YOUR BOWEL REGIMEN INSTRUCTED BELOW. Ideally, one regular bowel movement daily would be the goal. You were evaluated by physical therapy and advised rolling walker with 2 wheels and home physical therapy which has been arranged. Medications: Continue all previous medications except: 1. Take colace 100mg three times a day for constipation 2. Take miralax 17g if you don't have a bowel movement in 2 days 3. Take metamucil, twice a day for constipation. 4. Take ferrous sulfate (iron pill), 325mg, one tablet once a day, for your anemia. This can cause constipation and stomach upset. If you don't have a bowel movement for several days, please stop iron pills and discuss with your doctor. 5. stop taking norvasc because your blood pressures have ok in the hospital. Continue your coreg and quinapril as before. Your norvasc (amlodipine) is being held on discharge. recommend home BP monitoring daily till next doctor visit. Notify doctor if SBp persistently > 140 or < 100 or any dizziness noted. if persistently elevated BP, your amlodipine may need to be resumed. you will need to discuss with your doctor in this regard. Follow-ups: 1. Please visit your PCP, Dr. Alonzo in one week. 2. Please visit Dr. Martin in 1 week. He will advise you about your oquendo catheter and if he wants to do any further urologic testing. 3. Please visit GI, Dr. Frias, in 2 weeks for your colonic inflammation. Please maintain your oquendo catheter at home as you were educated in the hospital. If you develop any severe abdominal pain, fevers, chills, chest pain, shortness of breath, severe constipation or urinary retention, or any other concerning symptoms, please return to the ED. Referrals: Haroon Alonzo MD [Primary Care Provider] - Daquan Frias MD [Staff Physician] - Ovidio Martin MD [Staff Physician] - Disposition: VNS/HOME HEALTH CARE - Home Medications Comprehensive Discharge Medication List: Ambulatory Orders Simvastatin [Zocor] 30 mg PO DAILY 01/11/12 Aspirin [Ecotrin] 81 mg PO DAILY 06/13/16 Omeprazole 20 mg PO DAILY 05/30/17 Docusate Sodium [Colace -] 100 mg PO TID PRN #21 capsule 06/02/17 Hydroxyzine HCl 10 mg PO DAILY 08/11/17 Methenamine Hippurate [Hiprex [Nf] -] 1 gm PO BID 08/11/17 Polyethylene Glycol 3350 [Miralax 119 gm Btl -] 17 gm PO BID PRN 08/11/17 Tamsulosin HCl [Flomax] 0.4 mg PO DAILY 08/11/17 Carvedilol [Coreg] 12.5 mg PO BID #0 units 08/15/17 Ferrous Sulfate [Feosol] 325 mg PO DAILY #30 ud 08/15/17 Psyllium [Metamucil (Sugar-Free) -] 5.85 gm PO BID #60 packet 08/15/17 Quinapril HCl [Accupril -] 40 mg PO DAILY #60 tablet 08/15/17 This patient is new to me today: No Emergency Visit: Yes ED Registration Date: 08/12/17 Care time: The patient presented to the Emergency Department on the above date and was hospitalized for further evaluation of their emergent condition. Critical Care patient: No - Discharge Referral Referred to [facility] Yes Physician Referral: Haroon Alonzo MD (Int Med)
== END 2017-08-15 16:59 | disposition home health service (06) | DRG 392 ==
LOC: FER 20:22 → JICU 08-12 02:40 → J6S 08-12 10:26
PROVIDERS: ADMIT Internal Medicine; ATTEND Hospitalist
DX: K52.89 Other specified noninfective gastroenteritis and colitis (principal); K63.3 Ulcer of intestine; N39.0 Urinary tract infection, site not specified; E87.1 Hypo-osmolality and hyponatremia; I95.9 Hypotension, unspecified; K59.00 Constipation, unspecified; R55 Syncope and collapse; R33.9 Retention of urine, unspecified; I10 Essential (primary) hypertension; E78.5 Hyperlipidemia, unspecified; K56.41 Fecal impaction; D50.9 Iron deficiency anemia, unspecified; D72.829 Elevated white blood cell count, unspecified; Z95.0 Presence of cardiac pacemaker; R10.9 Unspecified abdominal pain
CPT/HCPCS: 36415; 71045-TC-FY; 74176-TC; 80048; 80053; 81003; 81015; 82150; 82728; 83540; 83550; 83605; 83690; 83735; 84100; 85025; 85027; 87086; 93005; 97116-GP; 97161-GP; 99285-25; J1644